=== PATIENT | male | born 1960 | race Caucasian/White ===

== ENCOUNTER → 2018-01-20 | Outpatient (CLI) | payer OTHER | LOC: M RAD 13:53 | DX: Z12.2 Encounter for screening for malignant neoplasm of respiratory organs (principal); F17.210 Nicotine dependence, cigarettes, uncomplicated | CPT/HCPCS: G0297 ==

== ENCOUNTER → 2019-04-05 | Outpatient (CLI) | payer OTHER ==
--- NOTE | 2019-04-06 05:38 | REP ---
Clinical: Lung screening. History smoking. Comparison: 01/20/2018, 05/15/2008 Technique: Axial low-dose noncontrast images from the thoracic inlet to the upper abdomen using lung screening technique. Findings: The lung perez are well-aerated. No consolidation, significant nodule or mass lesion is appreciated. Minimal stable scattered scarring unchanged from prior examinations. No pleural effusion/reaction or pneumothorax. Tracheobronchial tree is patent. Mediastinum demonstrates mild atherosclerotic changes of the coronary arteries without cardiomegaly. Impression: Lung-RADS category I. No nodule or suspicious abnormality. Management recommendations include annual low-dose CT screening. Electronically Signed by Vladislav Hong MD 04/06/2019 05:30 A
== END ==
LOC: M RAD 14:30
PROVIDERS: ATTEND Physician Assistant
DX: Z87.891 Personal history of nicotine dependence (principal); Z12.2 Encounter for screening for malignant neoplasm of respiratory organs

== ENCOUNTER → 2020-04-09 08:58 | Outpatient (RCR) | payer OTHER ==
[~2020-04-09] VITALS: Ht 168.9 cm; Wt 83.1 kg
[~2020-04-09 08:58] MED LIST: ADV500INH INH; ARNU1INH PO; B-12100020 PO; CIDA500T2 PO; CLAR10CA3 PO; FISH1000 PO; FLUT22IN INH; FLUT44IN INH; INCR1INH INH; LEVA750T7 PO; LEVO750T13 PO; LISI10TA4 PO; LOVA40TA PO; METF-877 PO; MULTCAP PO; RA A PO; VENTAER INH; VITA-113 SL; VITA500C24 PO
[2020-04-09 09:17] VITALS: BP 149/88
--- NOTE | 2020-04-09 10:02 | MEDONCPDOC ---
Medical Oncology Office Note Date of Service: Apr 09, 2020 Diagnosis/Treatment History Unknown primary cancer with CT scan 03/24/2020 at [facility] showing metastatic liver lesions, extensive mesenteric and retroperitoneal adenopathy, irregular bladder wall thickening, prostamegaly. Interval History Mr. Leobardo Woodall is a 59-year-old man who was having abdominal pains on the right lower quadrant and lower abdomen for a month for which he went to [facility] ER. He had a CT scan which showed metastatic liver lesions, small right pleural effusion and moderate left pleural effusion with left lower lobe consolidation, extensive mesenteric and retroperitoneal adenopathy, irregular bladder wall thickening, and prostamegaly. He was referred to Dr. Paniagua who performed an upper and lower endoscopy according to patient. I did not have records of this procedure as of this time but will obtain records. Mr. Leobardo Woodall states that his abdominal pains have resolved. He reports irregular bowel movements. No rectal bleeding. Appetite is good but he has been trying to lose weight and has lost 18 pounds over summer. He reports a dry cough. He is currently on inhalers. Allergies Coded Allergies: MS - No Known Drug Allergy (Verified Allergy, Unknown, 10/23/12) Home Medications Reported Medications Loratadine (Claritin) 10 Mg Capsule, 10 MG PO DAILY for allergy symptoms for 30 Days, #30 CAP 04/09/20 Diphenhydramine HCl (Allergy Medicine) 25 Mg Tablet, 25 MG PO, TAB 04/09/20 Multivitamin (Multivitamins) 1 Each Capsule, 1 CAP PO DAILY for 30 Days, #30 CAP 04/09/20 Cyanocobalamin (Vitamin B-12) (Vitamin B-12) 1,000 Mcg Tab.subl, 1 TAB SL DAILY for 30 Days, #30 TAB 04/09/20 Glucosamine/Chondr Galvan A Sod (Cidaflex Tablet) 1 Each Tablet, 1 TAB PO, TAB 04/09/20 [place]-3 Fatty Acids/Fish Oil (Fish Oil 1,000 mg Capsule) 1 Each Capsule, 1 CAP PO DAILY for 30 Days, #30 CAP 04/09/20 Ascorbic Acid (Vitamin C) 500 Mg Capsule, 1 CAP PO DAILY for 28 Days, #28 CAP 04/09/20 Fluticasone Furoate (Arnuity Ellipta) 100 Mcg Blst.w.dev, 1 PUFF PO DAILY for 30 Days, #1 EA 04/09/20 Salmeterol/Fluticasone (Advair 500-50 Diskus) 1 Each Blst.w.dev, 1 PUFF INH BID for 30 Days, #1 INHALER 04/09/20 Umeclidinium [place] (Incruse Ellipta) 62.5 Mcg Blst.w.dev, 1 PUFF INH DAILY, #1 PUFF 04/09/20 Lisinopril (Lisinopril) 10 Mg Tablet, 1 TAB PO DAILY for 30 Days, #30 TAB 04/09/20 Lovastatin (Lovastatin) 40 Mg Tablet, 1 TAB PO DAILY for 30 Days, #30 TAB with food 04/09/20 Metformin HCl (Metformin HCl) 1,000 Mg Tablet, 1000 MG PO, TAB 04/09/20 Past Medical History Past Medical History: Hypertension. Hyperlipidemia. Diabetes mellitus. COPD. Past Surgical History: Left carpal tunnel surgery. Family History: His father had mesothelioma. Social History: She is a former smoker, having smoked for 25-30 years, one and half packs per day up to year 2015. Does not drink alcohol. . Lives with a friend. Has 3 adult children. He has a sister who is his next of kin. Review of Systems General: Reports: Normal Appetite; Denies: Chills, Night Sweats, Fatigue, Malaise Constitutional: Reports: Weight Loss, Normal appetite; Denies: Chills, Fever, Malaise, Night Sweats, Weakness, Fatigue, Lethargy Eyes: Denies: Pain, Vision change, Conjunctivae inflammation, Eyelid inflammation, Redness HEENT: Denies: Head Aches, Ear Pain, Dysphagia, Sinus Congestion, Post Nasal Drip, Sore Throat, Epistaxis Skin: Denies: Rash, Lesions, Jaundice, Bruising Pulmonary: Reports: Cough; Denies: Dyspnea, Pleuritic Chest Pain Cardiovascular: Denies: Chest Pain, Palpitations, Orthopnea, Paroxysmal Noc. Dyspnea, Edema, Lt Headedness Gastrointestinal: Denies: Nausea, Vomiting, Abdominal Pain, Diarrhea, Constipation, Melena, Hematochezia Genitourinary: Denies: Dysuria, Frequency, Incontinence, Hematuria, Retention Hematologic: Denies: Bruising, Bleeding Excessively, Petecchia, Purpura, Enlarged Lymph Nodes Endocrine: Denies: Polydipsia, Polyphagia, Polyuria, Heat Intolerance, Cold Intolerance Musculoskeletal: Denies: Neck pain, Shoulder pain, Arm pain, Back pain, Hand pain, Leg pain, Foot pain, Joint pain, Muscle pain, Spasms, Gout, Joint sweling, Muscle stiffness, Midthoracic pain Neurological: Denies: Weakness, Numbness, Incoordination, Change in Speech, Confusion, Seizures Psych: Reports: Mood Normal; Denies: Anxiety, Depression, Memory Issues, Thoughts of Self Harm, Anger, Thoughts of harming Other Physical Examination General Exam: Positive: Alert, Cooperative, No Acute Distress, Oriented Times Three Eye Exam: Positive: PERRLA, Conjunctiva & lids normal, EOMI; Negative: Sclera icteric, Ptosis ENT EXAM: Positive: Atraumatic, Mucous membr. moist/pink, Pharynx Normal, Tongue Midline, Nares Patent; Negative: Pharyngeal Edema Neck Exam: Positive: Supple, Lymphadenopathy (left supraclavicular lymphadenopathy palpable.); Negative: JVD, Thyromegaly Chest Exam: Positive: Clear to auscultation, Normal air movement; Negative: Rales, Rhonchi, Wheezing Heart Exam: Positive: Rate Normal, Regular Rhythm, Normal S1, Normal S2; Negative: Gallops, Murmurs, Rubs Abdomen Exam: Positive: Normal bowel sounds, Soft; Negative: Tenderness, Hepatospenomegaly, Mass, Hernia Extremity Exam: Positive: Normal pulses; Negative: Clubbing, Cyanosis, Edema, Tenderness, Swelling Skin Exam: Positive: Nl turgor and temperature; Negative: Rash, Breakdown, Lesion, Pruritus Neuro Exam: Positive: Normal Gait, Normal Speech, Normal Tone Psych Exam: Positive: Mental status NL, Mood NL, Oriented x 3; Negative: Anxiety Ht / Wt Ht / Wt Height:5 Feet 6.50 Inches Weight: 83.100 Kg Vital Signs Vital Signs Date Time Temp Pulse Resp B/P (MAP) Pulse Ox O2 Delivery O2 Flow Rate FiO2 04/09/20 09:17 97.8 113 22 149/88 (108) 95 Room Air Laboratory Data Item Value Date Time White Blood Count 6.8 10^3/uL 04/09/20 09 Red Blood Count 4.82 10^6/uL 04/09/20 0959 Hemoglobin 14.8 g/dl 04/09/20958 Hematocrit 45.1 % 04/09/20 09 Mean Corpuscular Volume 93.6 fl 04/09/20958 Mean Corpuscular Hemoglobin 30.7 pg 04/09/20958 Mean Corpuscular Hemoglobin Concent 32.8 g/dl 04/09/20958 Red Cell Distribution Width 11.8 % 04/09/20958 Platelet Count 348 10^3/uL 04/09/20 09 Immature Granulocyte % (Auto) 0.3 % 04/09/20 09 Neutrophils (%) (Auto) 66.3 % H 04/09/20 09 Lymphocytes (%) (Auto) 16.6 % L 04/09/20 09 Monocytes (%) (Auto) 15.7 % H 04/09/20 09 Eosinophils (%) (Auto) 0.7 % 04/09/20958 Basophils (%) (Auto) 0.4 % 04/09/20 09 Neutrophils # (Auto) 4.5 10^3/uL 04/09/20 0959 Lymphocytes # (Auto) 1.1 10^3/uL L 04/09/2059 Monocytes # (Auto) 1.1 10^3/uL H 04/09/20 0959 Eosinophils # (Auto) 0.1 10^3/uL 04/09/20 0959 Basophils # (Auto) 0.0 10^3/uL 04/09/20958 Nucleated Red Blood Cells % (auto) 0.0 % 04/09/20 09 Item Value Date Time Sodium Level 137 MEQ/L 04/09/20 09 Potassium Level 3.9 MEQ/L 04/09/20 0959 Chloride Level 101 MEQ/L 04/09/2059 Carbon Dioxide Level 29 MEQ/L 04/09/20 0959 Anion Gap 7 MEQ/L L 04/09/20958 Blood Urea Nitrogen 12 MG/DL 04/09/20 09 Creatinine 0.92 MG/DL 04/09/20958 Glomerular Filtration Rate > 60.0 04/09/20958 Fasting Glucose 132 MG/DL H 04/09/20 0959 Calcium Level 9.7 MG/DL 04/09/20 0959 Total Bilirubin 0.6 MG/DL 04/09/20958 Aspartate Amino Transf (AST/SGOT) 13 U/L 9/23/20 0959 Alanine Aminotransferase (ALT/SGPT) 20 U/L 04/09/20 0959 Alkaline Phosphatase 77 U/L 04/09/20 0959 Total Protein 7.5 GM/DL 04/09/20 0959 Albumin 3.5 GM/DL 04/09/20 0959 Albumin/Globulin Ratio 0.9 04/09/20 0959 Carcinoembryonic Antigen 1.0 NG/ML 04/09/20 0959 CA 19-9 Antigen 145.8 U/ML H 04/09/20 0959 Assessment/Plan 59-year-old with unknown primary cancer with CT abdomen/pelvis 03/24/2020 showing metastatic liver lesions, intra-abdominal lymphadenopathy, bladder wall thickening and bilateral pleural effusions. Prognosis discussed with the patient. This is likely an incurable condition because of presence of metastatic disease. He needs a liver biopsy. We'll arrange for interventional radiology to do this. He apparently had an upper and lower endoscopy under Dr. Paniagua. We will obtain records. I also discussed that he likely would need to start systemic treatment mostly likely chemotherapy. Check CBC and tumor markers. We will also obtain a CT chest to assess for disease in the lungs/chest. After biopsy we'll likely order a PET CT scan. Above discussed with the patient who has agreed to the above plan. Thank you for referring Mr. Leobardo Woodall. CC TO: CC TO: Primary Care Provider: Fredo Mills MD Referring Provider: TIMBO MORIN MD Apr 09, 2020 10:02
[2020-04-09 11:05] LABS: BASO % 0.4 % (0.0-1.0); EOS # 0.1 10^3/uL (0.0-0.5); EOS % 0.7 % (0.0-3.0); HEMATOCRIT 45.1 % (42.0-52.0); HEMOGLOBIN 14.8 g/dl (13.5-17.5); LYMPH # 1.1 10^3/uL (1.5-5.0); LYMPH % 16.6 % (24.0-44.0); MEAN CORPUSCULAR HEMOGLOBIN 30.7 pg (27.0-33.0); MEAN CORPUSCULAR HGB CONC 32.8 g/dl (32.0-36.5); MEAN CORPUSCULAR VOLUME 93.6 fl (80.0-96.0); MONO # 1.1 10^3/uL (0.0-0.8); MONO % 15.7 % (0.0-5.0); NEUTROPHILS # 4.5 10^3/uL (1.5-8.5); NEUTROPHILS % 66.3 % (36.0-66.0); PLATELET COUNT, AUTOMATED 348 10^3/uL (150-450); RED BLOOD COUNT 4.82 10^6/uL (4.30-6.10); WHITE BLOOD COUNT 6.8 10^3/uL (4.0-10.0)
[2020-04-09 11:17] LABS: INR 1.05; PROTHROMBIN TIME 13.9 SECONDS (12.5-14.3)
[2020-04-09 11:18] LABS: PARTIAL THROMBOPLASTIN TIME 38.1 SECONDS (24.2-38.5)
[2020-04-09 11:21] LABS: ALBUMIN 3.5 GM/DL (3.2-5.2); ALT/SGPT 20 U/L (12-78); BILIRUBIN,TOTAL 0.6 MG/DL (0.2-1.0); BLOOD UREA NITROGEN 12 MG/DL (7-18); CALCIUM LEVEL 9.7 MG/DL (8.5-10.1); CARBON DIOXIDE LEVEL 29 MEQ/L (21-32); CHLORIDE LEVEL 101 MEQ/L (98-107); CREATININE FOR GFR 0.92 MG/DL (0.70-1.30); GLOMERULAR FILTRATION RATE > 60.0 (>56); GLUCOSE, FASTING 132 MG/DL (70-100); POTASSIUM SERUM 3.9 MEQ/L (3.5-5.1); SODIUM LEVEL 137 MEQ/L (136-145); TOTAL PROTEIN 7.5 GM/DL (6.4-8.2)
[2020-04-09 12:00] LABS: CA19-9 TUMOR MARKER,CARBOHYDRA 145.8 U/ML (<35.0)
== END | disposition home or self-care (01) ==
LOC: M ONCM 08:58
PROVIDERS: ATTEND Internal Medicine Medical Oncology
DX: C80.1 Malignant (primary) neoplasm, unspecified (principal); K76.89 Other specified diseases of liver; R59.0 Localized enlarged lymph nodes; J90 Pleural effusion, not elsewhere classified; I10 Essential (primary) hypertension; J44.9 Chronic obstructive pulmonary disease, unspecified; E11.9 Type 2 diabetes mellitus without complications; Z87.891 Personal history of nicotine dependence; Z79.899 Other long term (current) drug therapy
CPT/HCPCS: 36415; 80053; 82378; 85025; 85610; 85730; 86301; G0463

== ENCOUNTER → 2020-04-16 | Outpatient (CLI) | payer OTHER ==
[~2020-04-16] MED LIST changes: +LIDOCAINE 1% MDV 20ML VIAL As Ordered ONE; +SODIUM BICARBONATE 8.4% INJ 50MEQ 50 ML VIAL As Ordered ONE
[2020-04-16 11:00] VITALS: BP 147/85
--- NOTE | 2020-04-23 16:22 | REP ---
ULTRASOUND-GUIDED LIVER BIOPSY This procedure was performed by PEE Alcala, under the direct supervision of Dr. Richardson. The risks and benefits of the procedure were explained to the patient and an informed consent was obtained both verbally and written. Directly prior to the start of the procedure, a formal time-out was completed in the procedure room. One of the liver masses in the left lobe of the liver was localized using ultrasound guidance. The skin was prepped and draped in a sterile fashion. Approximately 15 mL of buffered Lidocaine was used as a local anesthetic. Using ultrasound guidance, a 19\20 gauge coaxial needle biopsy system was inserted and advanced into the liver mass. Six core biopsy samples were obtained and sent to the lab. The patient tolerated the procedure extremely well, and there were no immediate complications. After the appropriate amount of monitored convalescence, the patient was discharged from the department. INDRA
== END ==
LOC: M IRPRO 08:08
PROVIDERS: ATTEND Internal Medicine Medical Oncology
DX: C78.7 Secondary malignant neoplasm of liver and intrahepatic bile duct (principal)

== ENCOUNTER → 2020-04-18 | Outpatient (CLI) | payer OTHER ==
[~2020-04-18] MED LIST changes: +ISOVUE-370 76% 100ML VIAL As Ordered ONE; -LIDOCAINE 1% MDV 20ML VIAL As Ordered ONE; -SODIUM BICARBONATE 8.4% INJ 50MEQ 50 ML VIAL As Ordered ONE
--- NOTE | 2020-04-28 17:19 | REP ---
CT CHEST WITH INTRAVENOUS (IV) CONTRAST HISTORY: Pleural effusion. COMPARISON: CT study of the chest from 04/05/2019. That prior study was a screening exam. CT CONTRAST DOSE: 75 mL of intravenous Isovue-[address] FINDINGS: Preliminary deck mate views demonstrate fissural thickening, widespread nodular interstitial changes, and right and left mediastinal lymphadenopathy and mediastinal widening. Axial CT images confirm the presence of small bilateral pleural effusions. There are numerable bilateral pulmonary nodules consistent with pulmonary metastatic lesions. These range in size up to 14 mm. There is some fluid opacification in the bases, which may be atelectasis associated with the effusions. There is fairly bulky anterior mediastinal, subcarinal, paratracheal, and bilateral hilar lymphadenopathy as well. No definite axillary adenopathy is seen. There is no CT evidence of pulmonary embolus or aortic aneurysm or dissection. Multiple metastatic lesions are seen scattered about the liver. The largest of these is an inferior lesion in the left lobe measuring 4.8 cm in diameter. There is an accessory splenule in the left upper quadrant. There is upper abdominal lymphadenopathy in the celiac axis region. Retrocrural lymphadenopathy is observed. No adrenal lesion is seen. No bony destructive lesion is seen. IMPRESSION: Widespread pulmonary metastatic disease. Small bilateral pleural effusions. Fairly bulky bilateral hilar and mediastinal lymphadenopathy. Upper abdominal lymphadenopathy. Liver metastasis pattern. MTDD
== END ==
LOC: M RAD 13:34
PROVIDERS: ATTEND Internal Medicine Medical Oncology
DX: J90 Pleural effusion, not elsewhere classified (principal); C34.90 Malignant neoplasm of unspecified part of unspecified bronchus or lung; R59.0 Localized enlarged lymph nodes
CPT/HCPCS: 71260; Q9967

== ENCOUNTER 2020-04-24 10:30 | Inpatient (IN) | payer OTHER ==
[~2020-04-24] VITALS: Ht 172.7 cm; Wt 78.1 kg
[~2020-04-24 10:30] MED LIST changes: -B-12100020 PO; -FLUT44IN INH; -ISOVUE-370 76% 100ML VIAL As Ordered ONE; -LEVA750T7 PO; -LEVO750T13 PO; -VENTAER INH
[2020-04-24] MEDS ORDERED: FLUT44IN INH (11:05)
--- NOTE | 2020-04-24 11:17 | REPVR ---
PROCEDURE INFORMATION: Exam: XR Chest, 1 View Exam date and time: 04/24/2020 10:50 AM Age: 59 years old Clinical indication: Cough and dyspnea; Additional info: Dyspnea/cough TECHNIQUE: Imaging protocol: XR of the chest Views: 1 view. COMPARISON: CT Chest with contrast 04/18/2020 2:20 PM FINDINGS: Lungs: Bilateral basilar predominant opacities consistent with pneumonia, probably worsened since the prior CT chest of 04/18/2020. Pleural space: Moderate left and small right pleural effusions. No visible pneumothorax. Heart/Mediastinum: Unremarkable. No cardiomegaly. Bones/joints: Unremarkable. IMPRESSION: Persistent, likely worsened, bilateral pneumonia. Electronically signed by: Rachel Muñoz On 04/24/2020 11:17:40 AM
[2020-04-24 11:31] LABS: BASO % 0.5 % (0.0-1.0); EOS % 0.4 % (0.0-3.0); HEMATOCRIT 46.4 % (42.0-52.0); LYMPH # 0.9 10^3/uL (1.5-5.0); LYMPH % 10.5 % (24.0-44.0); MEAN CORPUSCULAR HEMOGLOBIN 29.6 pg (27.0-33.0); MEAN CORPUSCULAR HGB CONC 32.3 g/dl (32.0-36.5); MEAN CORPUSCULAR VOLUME 91.5 fl (80.0-96.0); MONO # 1.3 10^3/uL (0.0-0.8); MONO % 15.9 % (0.0-5.0); NEUTROPHILS # 5.9 10^3/uL (1.5-8.5); NEUTROPHILS % 72.1 % (36.0-66.0); PLATELET COUNT, AUTOMATED 425 10^3/uL (150-450); RED BLOOD COUNT 5.07 10^6/uL (4.30-6.10); WHITE BLOOD COUNT 8.2 10^3/uL (4.0-10.0)
[2020-04-24] MEDS ORDERED: ISOVUE-370 76% 100ML VIAL As Ordered ONE (11:47)
[2020-04-24 12:08] LABS: ALBUMIN 3.1 GM/DL (3.2-5.2); BILIRUBIN,DIRECT 0.1 MG/DL (0.0-0.2); BILIRUBIN,TOTAL 0.5 MG/DL (0.2-1.0); THYROID STIMULATING HORMONE 1.99 uIU/ML (0.358-3.740); THYROXINE (T4) 10.6 UG/DL (4.5-12.0); TOTAL PROTEIN 6.6 GM/DL (6.4-8.2)
[2020-04-24] MEDS ORDERED: B-12100020 PO (12:14)
--- NOTE | 2020-04-24 12:28 | REPVR ---
PROCEDURE INFORMATION: Exam: CT Angiography Chest With Contrast Exam date and time: 04/24/2020 11:35 AM Age: 59 years old Clinical indication: Shortness of breath; Additional info: SOB TECHNIQUE: Imaging protocol: Computed tomographic angiography of the chest with intravenous contrast. 3D rendering (Not supervised by radiologist): MIP and/or 3D reconstructed images were created by the technologist. Radiation optimization: All CT scans at this facility use at least one of these dose optimization techniques: automated exposure control; mA and/or kV adjustment per patient size (includes targeted exams where dose is matched to clinical indication); or iterative reconstruction. Contrast material: ISOVUE 370; Contrast volume: 75 ml; Contrast route: INTRAVENOUS (IV); COMPARISON: 1. CT Chest with contrast 04/18/2020 2:20 PM 2. LOW DOSE LUNG SCREENING CT 04/05/2019 2:46:28 PM FINDINGS: Pulmonary arteries: Images are motion degraded limiting assessment of small pulmonary arterial branches. No central pulmonary arterial filling defects identified. Aorta: Unremarkable. No aortic aneurysm. No aortic dissection. Lungs: Progressive bilateral patchy lung consolidation, in particular progressive, coalescent, dense consolidations in both lower lobes as well as lingula. Relatively milder upper lobe opacities elsewhere are similar to prior. Mildly progressive disease in the right middle lobe. Numerous nodular opacities versus nodules, for example in the right middle lobe measuring 12 and 10 mm. Pleural space: Progressive, moderate bilateral pleural effusions. No pneumothorax. Heart: Unremarkable. No cardiomegaly. No pericardial effusion. Lymph nodes: Mediastinal and bilateral perihilar lymphadenopathy is again demonstrated. For example enlarged prevascular lymph nodes, the largest measuring 2.2 x 1.8 cm. Mild retrocrural lymphadenopathy. There is upper abdominal celiac axis she lymphadenopathy, as before. Shotty left axillary lymphadenopathy. Liver: Numerous hypodense liver lesions are again demonstrated, the largest in the right hepatic lobe measures larger than 4 cm. Bones/joints: No acute fracture seen. No discrete suspicious lytic or blastic lesions identified bone. Soft tissues: Unremarkable. IMPRESSION: 1. No evidence of pulmonary emboli. 2. Progressive pneumonia, in particular dense bilateral lower lobe consolidations. 3. Progressive bilateral pleural effusions. Electronically signed by: Rachel Muñoz On 04/24/2020 12:28:07 PM
[2020-04-24] MEDS ORDERED: AZITHROMYCIN INJ 500 MG, VIAL MATE ADAPTER 1 EACH in D5W 250 ML IV ONE (12:45)
[2020-04-24] MEDS ORDERED: cefTRIAXone SOD 1 GM in D5W MINI-BAG PLUS 50 ML IV ONE (12:45)
[2020-04-24] MEDS ORDERED: LEVALBUTEROL 1.25 MG/0.5 ML CONCENTRATE NEB INH PRN (14:15)
[2020-04-24] MEDS ORDERED: GLUCAGON INJ 1MG VIAL SC PRN (14:15)
[2020-04-24] MEDS ORDERED: GLUCOSE 4GM CHEW TABLET PO PRN (14:15)
[2020-04-24] MEDS ORDERED: DEXTROSE 50% 50 ML SYRINGE IV PRN (14:15)
[2020-04-24] MEDS ORDERED: ACETAMINOPHEN TAB 650MG DOSE (2X325MG) PO PRN (14:15)
[2020-04-24] MEDS: ADVAIR HFA 230/21MCG INHALER INH SCH ×2 (14:32→20:00)
[2020-04-24] MEDS: lisinopriL 10 MG TAB PO SCH (15:33)
[2020-04-24] MEDS: MULTIVITAMINS/MINERALS THERAP 1 TAB PO SCH (15:33)
[2020-04-24 16:00] VITALS: BP 149/91
--- NOTE | 2020-04-24 16:56 | HPEPDOC ---
[facility] Medical History & Physical Date of Admission Apr 24, 2020 Date of Service: Apr 24, 2020 Attending Physician: SHEA ANNA MD History and Physical CHIEF COMPLAINT: Shortness of breath. HISTORY OF PRESENT ILLNESS: Mr. Woodall is a 59 yo M with a PMHx of COPD, HTN, HLD, and T2DM who was recently diagnosed with cancer of unknown origin that has spread to the liver, lymph nodes, and possibly lung, who presented to the ED complaining of shortness of breath that has been worsening over the past 3 days. He says he will occasionally cough and produce clear/white sputum. The pt states that he tried taking his inhalers at home but it did not improve his symptoms. Pt states that he has not had much of an appetite over the past 3 days. He says that he has been drinking gatorade and water at home pretty consistently though. He denies fever, chills, abdominal pain, diarrhea, or constipation. PAST MEDICAL HISTORY: 1. HTN 2. HLD 3. COPD 4. T2DM non insulin dependent 5. Metastatic cancer of uncertain origin in liver, intra-abdominal lymph nodes, and possibly lungs. PAST SURGICAL HISTORY: 1. L carpal tunnel surgery 2. 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 REVIEW OF SYSTEMS: CONSTITUTIONAL: Denies fever, chills, diarrhea, vomiting. HEENT: Denies headache, sore throat, congestion, rhinorrhea, ear pain. CARDIOVASCULAR: Denies palpitations, chest pain. RESPIRATORY: Admits to shortness of breath on exertion. Denies significant cough. GASTROINTESTINAL: Admits to nausea. Denies vomiting, diarrhea. GENITOURINARY: Denies dysuria, hematuria. SKIN: Denies rashes, lesions. MUSCULOSKELETAL: Denies joint pain, muscle aches. NEUROLOGICAL: Denies vision changes, loss of balance, sensory deficits, weakness. HOME MEDICATIONS: Please see below. PHYSICAL EXAMINATION: VITAL SIGNS: Temperature 99.1, pulse 118, respiratory rate 18, blood pressure 156/70, pulse oximetry 94% on 1L nasal cannula. GENERAL APPEARANCE: Pt appears lying in bed comfortably in no acute distress. HEENT: NC, AT, no scleral icterus, no pharyngeal erythema. Soft, mobile, non tender mass L supraclavicular area. CARDIOVASCULAR: RRR, tachycardic, no murmurs, rubs, or gallops. LUNGS: CTAB, decreased breath sounds BL L>R, audible wheezing after expiration. ABDOMEN: Soft, NT, distended, tympanic, bowel sounds present in all quadrants. EXTREMITIES: No swelling or edema. NEUROLOGICAL: AAOx3, EOMI, PERRLA, CN III-XII grossly intact, no focal deficits. PSYCHIATRIC: Normal mood and affect. LABORATORY DATA: See below. IMAGING: -CXR 04/24/2020: Impression "Persistent, likely worsened, bilateral pneumonia." -CTA 04/24/2020: Impression "1. No evidence of pulmonary emboli. 2. Progressive pneumonia, in particular dense bilateral lower lobe consolidations. 3. Progressive bilateral pleural effusions." MICROBIOLOGY: Please see below. ASSESSMENT: Mr. Woodall is a 59 yo M with a PMHx of HTN, HLD, non insulin dependent T2DM, COPD, and recently diagnosed metastatic cancer of undetermined origin, that presented to the ED complaining of worsening shortness of breath of 3 days duration, was found to have bilateral infiltrates on CXR and pleural effusion on imaging, concerning for PNA vs malignant pleural effusion vs COPD exacerbation. PLAN: #. Shortness of breath likely 2/2 to BL interstitial PNA vs pleural effusion vs COPD exacerbation - Recent negative COVID test on 03/31/2020, will retest on this admission. - Sputum culture, legionella antigen, and procalcitonin ordered. - Pt started on vancomycin and cefepime. - Pt is on 1L supplemental O2. - Spoke with Dr. Melgar regarding CT findings, does not believe there are any loculations and effusion is mild to moderate so there is not an indication to drain yet, appreciate his recommendations. - Will get repeat CT after treating the PNA to reassess. #. COPD - Xopenex neb PRN - Flovent daily PRN - Advair BID. - Oxygen titration 88-92% #. Tachycardia - Pt given 500ml bolus of NS. - Pt started on telemetry. #. T2DM - Hold pt's home metformin. - Started on sliding scale insulin. - Hypoglycemic protocol. #. HTN - Continue home lisinopril. #. HLD - Continue home simvastatin. #. Metastatic CA of undetermined origin - Pt under the care of Dr. Lopez, will appreciate her recommendations. DVT Prophylaxis: Lovenox Vital Signs Vital Signs Date Time Temp Pulse Resp B/P (MAP) Pulse Ox O2 Delivery O2 Flow Rate FiO2 04/24/20 13:45 99.1 118 18 156/70 (98) 94 1.0 04/24/20 10:48 Nasal Cannula Laboratory Data Labs 24H Laboratory Tests 2 04/24/20 11:08: POC Glucose (Misc Panel) 130H, POC Sodium (Misc Panel) 135L, POC Potassium (Misc Panel) 4.7, POC Chloride (Misc Panel) 98, POC Total CO2 (Misc Panel) 24.0, POC Blood Urea Nitrogen (Misc Panel 9, POC Ionized Calcium (Misc Panel) 4.6, POC Creatinine (Misc Panel) 0.7, POC Hematocrit (Misc Panel) 46.0 04/24/20 11:10: POC Troponin I (Misc) 0.00 04/24/20 11:11: Immature Granulocyte % (Auto) 0.6, Neutrophils (%) (Auto) 72.1H, Lymphocytes (%) (Auto) 10.5L, Monocytes (%) (Auto) 15.9H, Eosinophils (%) (Auto) 0.4, Basophils (%) (Auto) 0.5, Neutrophils # (Auto) 5.9, Lymphocytes # (Auto) 0.9L, Monocytes # (Auto) 1.3H, Eosinophils # (Auto) 0.0, Basophils # (Auto) 0.0, Nucleated Red Blood Cells % (auto) 0.0, Total Bilirubin 0.5, Direct Bilirubin 0.1, Aspartate Amino Transf (AST/SGOT) 21, Alanine Aminotransferase (ALT/SGPT) 18, Alkaline Phosphatase 73, VD-Wsh-W-Type Natriuretic Peptide 81, Total Protein 6.6, Albumin 3.1L, Albumin/Globulin Ratio 0.9, Thyroid Stimulating Hormone (TSH) 1.990, Thyroxine (T4) 10.6 04/24/20 12:11: Lactic Acid Level 1.8 CBC/BMP Laboratory Tests 04/24/20 11:11 Microbiology Microbiology 04/24/20 Blood Culture, Received Pending 04/24/20 Blood Culture, Received Pending Home Medications Scheduled Ascorbic Acid (Vitamin C) 500 Mg Capsule, 500 CAP PO DAILY Cyanocobalamin (Vitamin B-12) (B-12) 1,000 Mcg Tablet, 1,000 MCG PO DAILY Glucosamine/Chondr Galvan A Sod (Cidaflex Tablet) 1 Each Tablet, 1 TAB PO DAILY Levofloxacin (Levofloxacin) 750 Mg Tablet, 750 MG PO DAILY Lisinopril (Lisinopril) 10 Mg Tablet, 10 MG PO DAILY Loratadine (Claritin) 10 Mg Capsule, 10 MG PO DAILY Lovastatin (Lovastatin) 40 Mg Tablet, 40 MG PO DAILY Metformin HCl (Metformin HCl) 1,000 Mg Tablet, 1,000 MG PO QHS Multivitamin (Multivitamins) 1 Each Capsule, 1 CAP PO DAILY [place]-3 Fatty Acids/Fish Oil (Fish Oil 1,000 mg Capsule) 1 Each Capsule, 1,000 MG PO DAILY Salmeterol/Fluticasone (Advair 500-50 Diskus) 1 Each Blst.w.dev, 1 PUFF INH BID Umeclidinium [place] (Incruse Ellipta) 62.5 Mcg Blst.w.dev, 1 PUFF INH DAILY Scheduled PRN Albuterol Sulfate (Ventolin Hfa) 18 Gm Hfa.aer.ad, 2 PUFF INH QID PRN for SOB/WHEEZING Allergies Coded Allergies: No Known Drug Allergies (Verified Allergy, Unknown, 04/24/20) GME ATTESTATION GME ATTESTATION My faculty preceptor for this patient encounter was physically present during the encounter and was fully available. All aspects of the patient interview, examination, medical decision making process, and medical care plan development were reviewed and approved by the faculty preceptor. The faculty preceptor is aware and concurs with the plan as stated in the body of this note and will attest to such by his/her cosignature. ATTENDING NOTE Patient was seen and examined by me personally with the residents and the students. Agree with the above assessment and plan. ALEKSANDR HERNANDEZ OMS-3 Apr 24, 2020 15:27 DEVANG ANTUNEZ MD Apr 24, 2020 16:56 SHEA ANNA MD May 02, 2020 13:58
[2020-04-24] MEDS ORDERED: NS 500 ML IV ONE (17:00)
[2020-04-24] MEDS ORDERED: VANCOMYCIN HCL 1,000 MG, VIAL MATE ADAPTER 1 EACH in D5W 250 ML IV SCH (17:00)
[2020-04-24] MEDS: CEFEPIME HCL 2 GM in D5W MINI-BAG PLUS 50 ML IV SCH (17:20)
[2020-04-24] MEDS: HumaLOG INSULIN (NovoLOG) PER UNIT SC SCH ×2 (17:21→21:00)
[2020-04-24 18:00] VITALS: BP 145/69
[2020-04-24] MEDS ORDERED: VANCOMYCIN HCL 750 MG, VIAL MATE ADAPTER 1 EACH in D5W 250 ML IV ONE (18:00)
[2020-04-24] MEDS: DOCUSATE SODIUM 100 MG CAP PO SCH (20:24)
[2020-04-24 22:00] VITALS: BP 138/67
[2020-04-25] MEDS: CEFEPIME HCL 2 GM in D5W MINI-BAG PLUS 50 ML IV SCH ×2 (04:35→16:32)
[2020-04-25 05:58] LABS: HEMATOCRIT 44.2 % (42.0-52.0); HEMOGLOBIN 14.2 g/dl (13.5-17.5); MEAN CORPUSCULAR HEMOGLOBIN 29.8 pg (27.0-33.0); MEAN CORPUSCULAR HGB CONC 32.1 g/dl (32.0-36.5); MEAN CORPUSCULAR VOLUME 92.9 fl (80.0-96.0); PLATELET COUNT, AUTOMATED 331 10^3/uL (150-450); RED BLOOD COUNT 4.76 10^6/uL (4.30-6.10)
[2020-04-25 06:00] VITALS: BP 130/74
[2020-04-25 06:09] LABS: ALBUMIN 2.7 GM/DL (3.2-5.2); ALT/SGPT 16 U/L (12-78); BILIRUBIN,TOTAL 0.4 MG/DL (0.2-1.0); BLOOD UREA NITROGEN 11 MG/DL (7-18); CALCIUM LEVEL 8.6 MG/DL (8.5-10.1); CARBON DIOXIDE LEVEL 25 MEQ/L (21-32); CHLORIDE LEVEL 102 MEQ/L (98-107); CREATININE FOR GFR 0.74 MG/DL (0.70-1.30); GLOMERULAR FILTRATION RATE > 60.0 (>56); GLUCOSE, FASTING 124 MG/DL (70-100); POTASSIUM SERUM 4.9 MEQ/L (3.5-5.1); SODIUM LEVEL 136 MEQ/L (136-145)
--- NOTE | 2020-04-25 07:17 | ECGEPIP ---
[facility] - ED Test Date: 2020-04-24 Pat Name: TAHIRA BLEVINS Department: Room: - Gender: Male Heel Packer: DESTINI : 1960 Requested By: Myrtle Rivers Order Number: [id number] Reading MD: Zi Madrid Measurements Intervals [place] Rate: 124 P: 64 [place]: 127 QRS: 15 QRSD: 96 T: 58 QT: 304 QTc: 437 Interpretive Statements SINUS TACHYCARDIA POSSIBLE LEFT ATRIAL ENLARGEMENT POOR R WAVE PROGRESSION NO PRIORS FOR COMPARISON Electronically Signed on 04-25-2020 7:17:29 EDT by Zi Madrid
[2020-04-25] MEDS: ADVAIR HFA 230/21MCG INHALER INH SCH ×2 (07:53→19:57)
[2020-04-25] MEDS: ENOXAPARIN 40MG/0.4ML SYRINGE (J1650 PER 10MG) SC SCH (07:55)
[2020-04-25] MEDS: HumaLOG INSULIN (NovoLOG) PER UNIT SC SCH ×4 (07:56→21:00)
[2020-04-25] MEDS: DOCUSATE SODIUM 100 MG CAP PO SCH ×2 (07:56→21:00)
[2020-04-25] MEDS: lisinopriL 10 MG TAB PO SCH (07:56)
[2020-04-25] MEDS: SIMVASTATIN 20 MG TAB PO SCH (07:57)
[2020-04-25] MEDS: MULTIVITAMINS/MINERALS THERAP 1 TAB PO SCH (07:57)
[2020-04-25] MEDS ORDERED: FLUTICASONE HFA 44 MCG 10.6GM INHALER (FLOVENT) INH PRN (08:00)
[2020-04-25] MEDS ORDERED: IPRATROPIUM 0.02% SOLN 0.5MG 2.5ML NEB INH PRN (13:15)
--- NOTE | 2020-04-25 13:42 | IPNPDOC ---
Text Note Date of Service The patient was seen on 04/25/20. NOTE HPI: Mr. Woodall is a 59 yo M with a PMHx of COPD, HTN, and T2DM, who was rece ntly diagnosed with metastatic cancer of undetermined origin, that presented to the ED complaining of worsening shortness of breath. SUBJECTIVE: No acute events overnight. Pt says he is feeling less short of breath than yesterday. He states that he feels short of breath when he is up and moving around. He is still on 1L NC. Pt denies fever, chills, nausea, vomiting, diarrhea, or constipation. OBJECTIVE: VITAL SIGNS: please see below. GENERAL: Pt was seen sitting in bedside chair in no acute distress. HEENT: NC, AT, no scleral icterus, no pharyngeal erythema. Soft, mobile, non tender mass in L supraclavicular area. NECK: no JVD or lymphadenopathy appreciated. CV: tachycardic, regular rhythm, no murmurs, rubs, gallops. RESP: lung sounds diminished BL L>R, decreased tactile fremitus BL L>R, no rales, rhonchi, or wheezes. ABDOMEN: soft, NT, mildly distended, bowel sounds present in all quadrants. EXTREMITIES: no swelling or edema. NEURO: AAOx3, CN III-XII grossly intact. PSYCH: Normal mood and affect. LABORATORY: please see below. MICROBIOLOGY: -Blood cultures pending. -Sputum culture gram stain showed few gram positive cocci in pairs. Culture still pending. IMAGING: -CXR 04/24/2020: Impression "Persistent, likely worsened, bilateral pneumonia." -CTA 04/24/2020: Impression "1. No evidence of pulmonary emboli. 2. Progressive pneumonia, in particular dense bilateral lower lobe consolidations. 3. Progressive bilateral pleural effusions." ASSESSMENT/PLAN: Mr. Woodall is a 59 yo M with a PMHx of HTN, HLD, non insulin dependent T2DM, COPD, and recently diagnosed metastatic cancer of undetermined origin, that presented to the ED complaining of worsening shortness of breath of 3 days duration, was found to have bilateral infiltrates on CXR and pleural effusion on imaging, concerning for PNA vs malignant pleural effusion vs COPD exacerbation. #. Shortness of breath likely 2/2 to BL interstitial PNA vs pleural effusion vs COPD exacerbation -COVID negative -Sputum culture, legionella antigen, and procalcitonin pending. -Pt is receiving cefepime -Pt is on 1L supplemental O2 -Will get repeat CT after treating the PNA to reassess #. COPD -Discontinued Xopenex neb due to tachycardia -Flovent daily PRN -Advair BID -Started on ipratropium -O2 titration 88-92% #. Tachycardia -No events on telemetry -Discontinued Xopenex in the setting of tachycardia -Ipratropium neb started today #. T2DM -Holding pt's home metformin -Started on sliding scale insulin -Hypoglycemic protocol -Consistent carbohydrate diet #. HTN -Continue home lisinopril #. HLD -Continue home simvastatin #. Metastatic CA of undetermined origin -Pt under the care of Dr. Lopez, hospitalist service appreciates her recommendations; established with Dr. Lopez on 04/09 -Apr 16 liver biopsy pathology showed metastatic carcinoma with unknown primary; Ddx metastatic adenocarcinoma vs intrahepatic cholangiocarcinoma DVT Prophylaxis: Lovenox Disposition: Pending improved respiratory status; Heme/Onc followup upon discharge VS,Rosenda, I+O VS, Rosenda, I+O Laboratory Tests 04/25/20 05:28 Vital Signs Date Time Temp Pulse Resp B/P (MAP) Pulse Ox O2 Delivery O2 Flow Rate FiO2 04/25/20 09:00 1.0 04/25/20 07:56 128/72 04/25/20 06:00 99.1 112 18 93 Nasal Cannula I&O- Last 24 Hours up to 6 AM 04/25/20 06:00 Intake Total 1325 ml Output Total 400 ml Balance 925 ml GME ATTESTATION GME ATTESTATION My faculty preceptor for this patient encounter was physically present during the encounter and was fully available. All aspects of the patient interview, examination, medical decision making process, and medical care plan development were reviewed and approved by the faculty preceptor. The faculty preceptor is aware and concurs with the plan as stated in the body of this note and will attest to such by his/her cosignature. ATTENDING NOTE Patient was seen and examined by me personally with the residents and the stude nts. Agree with the above assessment and plan. ALEKSANDR HERNANDEZ OMS-3 Apr 25, 2020 13:42 SHEA ANNA MD May 02, 2020 13:59
[2020-04-25 14:00] VITALS: BP 137/75
[2020-04-25 22:00] VITALS: BP 130/68
[2020-04-26] MEDS: CEFEPIME HCL 2 GM in D5W MINI-BAG PLUS 50 ML IV SCH (04:08)
[2020-04-26 05:43] LABS: HEMATOCRIT 43.9 % (42.0-52.0); HEMOGLOBIN 14.4 g/dl (13.5-17.5); MEAN CORPUSCULAR HEMOGLOBIN 30.1 pg (27.0-33.0); MEAN CORPUSCULAR HGB CONC 32.8 g/dl (32.0-36.5); MEAN CORPUSCULAR VOLUME 91.6 fl (80.0-96.0); PLATELET COUNT, AUTOMATED 423 10^3/uL (150-450); RED BLOOD COUNT 4.79 10^6/uL (4.30-6.10); WHITE BLOOD COUNT 8.6 10^3/uL (4.0-10.0)
[2020-04-26 06:00] VITALS: BP 128/72
[2020-04-26] MEDS ORDERED: LevoFLOXacin 750 MG TABLET PO SCH (06:00)
[2020-04-26 06:08] LABS: ALBUMIN 2.8 GM/DL (3.2-5.2); ALT/SGPT 17 U/L (12-78); BILIRUBIN,TOTAL 0.6 MG/DL (0.2-1.0); BLOOD UREA NITROGEN 15 MG/DL (7-18); CALCIUM LEVEL 8.9 MG/DL (8.5-10.1); CARBON DIOXIDE LEVEL 28 MEQ/L (21-32); CHLORIDE LEVEL 100 MEQ/L (98-107); CREATININE FOR GFR 0.81 MG/DL (0.70-1.30); GLOMERULAR FILTRATION RATE > 60.0 (>56); GLUCOSE, FASTING 135 MG/DL (70-100); POTASSIUM SERUM 4.9 MEQ/L (3.5-5.1); SODIUM LEVEL 132 MEQ/L (136-145); TOTAL PROTEIN 6.1 GM/DL (6.4-8.2)
[2020-04-26] MEDS: ADVAIR HFA 230/21MCG INHALER INH SCH (07:51)
[2020-04-26] MEDS: DOCUSATE SODIUM 100 MG CAP PO SCH (08:09)
[2020-04-26] MEDS: HumaLOG INSULIN (NovoLOG) PER UNIT SC SCH ×2 (08:09→12:13)
[2020-04-26] MEDS: SIMVASTATIN 20 MG TAB PO SCH (08:10)
[2020-04-26] MEDS: ENOXAPARIN 40MG/0.4ML SYRINGE (J1650 PER 10MG) SC SCH (08:10)
[2020-04-26] MEDS: MULTIVITAMINS/MINERALS THERAP 1 TAB PO SCH (08:10)
[2020-04-26 08:12] VITALS: BP 124/74
[2020-04-26] MEDS: lisinopriL 10 MG TAB PO SCH (08:12)
[2020-04-26] MEDS ORDERED: LEVA750T7 PO (10:45)
--- NOTE | 2020-04-26 11:24 | CR.PDOC ---
General Date of Consultation: Apr 26, 2020 Referring Provider: RUDOLPH CHAVARRIA MD Attending Physician: RUDOLPH CHAVARRIA MD Consultation REASON FOR CONSULTATION/CHIEF COMPLAINT: Metastatic unknown primary cancer. HISTORY OF PRESENT ILLNESS: Mr. Woodall is a 59-year-old man admitted for pneumonia. Started on cefepime and vancomycin on admission and now now on levofloxacin. He reports minimal improvement in shortness of breath and cough since admission. Mr Woodall was seen by me for initial consult visit 04/09/2020 for metastatic liver lesions found on CT scan 03/24/2020 at [facility], when he came in to [facility] ER for abdominal pains on right lower quadrant and lower abdomen. Since then he has had further workup with a liver biopsy showing adenocarcinoma with IHC staining results considered nonspecific, possibly intrahepatic cholangiocarcinoma versus metastatic adenocarcinoma. ALLERGIES: Please see below. HOME MEDICATIONS: Please see below. Past Medical History: Hypertension. Hyperlipidemia. Diabetes mellitus. COPD. Past Surgical History: Left carpal tunnel surgery. Family History: His father had mesothelioma. Social History: She is a former smoker, having smoked for 25-30 years, one and half packs per day up to year 2016. Does not drink alcohol. . Lives with a friend. Has 3 adult children. He has a sister who is his next of kin. Friend and sister hold healthcare proxy. REVIEW OF SYSTEMS: General: Reports: Normal Appetite; Fatigue, Malaise Denies: Chills, Night Sweats. Constitutional: Reports: Weight Loss, Normal appetite; Malaise, Night Sweats, Weakness, Fatigue, Lethargy Denies: Chills, Fever. Eyes: Denies: Pain, Vision change, Conjunctivae inflammation, Eyelid inflammation, Redness HEENT: Denies: Head Aches, Ear Pain, Dysphagia, Sinus Congestion, Post Nasal Drip, Sore Throat, Epistaxis Skin: Denies: Rash, Lesions, Jaundice, Bruising Pulmonary: Reports: Cough; Dyspnea. Denies: Pleuritic Chest Pain Cardiovascular: Denies: Chest Pain, Palpitations, Orthopnea, Paroxysmal Noc. Dyspnea, Edema, Lt Headedness Gastrointestinal: Denies: Nausea, Vomiting, Abdominal Pain, Diarrhea, Constipation, Melena, Hematochezia Genitourinary: Denies: Dysuria, Frequency, Incontinence, Hematuria, Retention Hematologic: Denies: Bruising, Bleeding Excessively, Petecchia, Purpura, Enlarged Lymph Nodes Endocrine: Denies: Polydipsia, Polyphagia, Polyuria, Heat Intolerance, Cold Intolerance Musculoskeletal: Reports: chronic low back pain Denies: Neck pain, Shoulder pain, Arm pain, Hand pain, Leg pain, Foot pain, Joint pain, Muscle pain, Spasms, Gout, Joint sweling, Muscle stiffness, Midthoracic pain Neurological: Reports: weakness. Denies: Numbness, Incoordination, Change in Speech, Confusion, Seizures Psych: Reports: Mood Normal; Denies: Anxiety, Depression, Memory Issues, Thoughts of Self Harm, Anger, Thoughts of harming Other PHYSICAL EXAMINATION: VITAL SIGNS: Please see below. GENERAL APPEARANCE: Seated on chair. Short of breath on speaking. Communicative. HEENT: Pinkish conjunctiva, anicteric, atraumatic, moist oral mucosa RESPIRATORY: Fair entry. Coarse rales at the bases. Occasional rhonchi. No wh eezing. CARDIOVASCULAR: Tachycardic. S1 S2 regular. No murmur. No gallop. ABDOMEN: Soft, nontender, no hepatosplenomegaly, no palpable masses, positive bowel sounds. EXTREMITIES: No calf swelling, no calf tenderness, no pedal edema. No cyanosis. NEUROLOGICAL: Alert. Oriented 3, moves all extremities spontaneously. PSYCHIATRIC: No anxiety. LABORATORY DATA: Please see below. ASSESSMENT/PLAN: Metastatic unknown primary adenocarcinoma. 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 Workup to date: CT abdomen/pelvis 03/24/2020 ([facility]) showing metastatic liver lesions, intra-abdominal lymphadenopathy, bladder wall thickening and bilateral pleural effusions. Colonoscopy 04/03/[address] Boswell at [facility] showed sigmoid polyp, tubulovillous adenoma on pathology report. Upper endoscopy 04/03/[address] Boswell at [facility] showed chronic esophagitis and large hiatal hernia with antrum biopsy and fundus biopsy showing no pathologic changes. Liver biopsy 04/16/2020 showing adenocarcinoma with nonspecific IHC staining results. Differential includes cholangiocarcinoma and metastatic adenocarcinoma, unknown primary. CT chest 04/18/[address] Cunningham showed widespread pulmonary metastatic disease, small bilateral pleural effusions, fairly bulky bilateral hilar and mediastinal lymphadenopathy, upper mid abdominal lymphadenopathy and liver metastases. Currently admitted for pneumonia. CT chest angiography 04/24/2010 showed progressive pneumonia with dense bilateral lower lobe consolidations, progressive bilateral pleural effusion. Pathology report and imaging studies discussed with the patient. Testing for molecular cancer supervisor twisting department assay to be considered as an outpatient. He has an unknown primary adenocarcinoma which is an incurable condition. I briefly discussed systemic chemotherapy for unknown primary cancer and metastatic cholangiocarcinoma. This can be started as an outpatient once patient is discharged and symptoms have improved from pneumonia. Also briefly discussed with Mr. Woodall the option of a hospice referral should patient's symptoms fail to improve with treatment for pneumonia. The patient was initially treated with cefepime. Now on levofloxacin. Continue antibiotics. Also on bronchodilator and steroid inhalers. Continue supportive care. Will arrange follow-up appointment with me once patient is discharged. Thank you for requesting a consult on Mr. Leobardo Woodall. Vital Signs/I&O Vital Signs Date Time Temp Pulse Resp B/P (MAP) Pulse Ox O2 Delivery O2 Flow Rate FiO2 04/26/20 08:12 124/74 04/26/20 06:00 98.0 118 18 91 Nasal Cannula 1.0 I&O- Last 24 Hours up to 6 AM 04/26/20 06:00 Intake Total 1430 ml Output Total 800 ml Balance 630 ml Laboratory Data Labs 24H Laboratory Tests 2 04/25/20 11:47: Bedside Glucose (Misc Panel) 105 04/25/20 16:30: Bedside Glucose (Misc Panel) 116H 04/25/20 20:25: Bedside Glucose (Misc Panel) 140H 04/26/20 05:19: Nucleated Red Blood Cells % (auto) 0.0, Anion Gap 4L, Glomerular Filtration Rate > 60.0, Calcium Level 8.9, Total Bilirubin 0.6, Aspartate Amino Transf (AST/SGOT) 20, Alanine Aminotransferase (ALT/SGPT) 17, Alkaline Phosphatase 66, Total Protein 6.1L, Albumin 2.8L, Albumin/Globulin Ratio 0.8 CBC/BMP Laboratory Tests 04/26/20 05:19 Microbiology Microbiology 04/24/20 Respiratory Virus Panel (PCR) (SANJAY) - Final, Complete 04/24/20 Blood Culture - Preliminary, Resulted No growth after 24 hours . All specim... 04/24/20 Blood Culture - Preliminary, Resulted No growth after 24 hours . All specim... 04/24/20 Gram Stain - Final, Resulted 04/24/20 Sputum Culture, Resulted Pending Allergies Coded Allergies: No Known Drug Allergies (Verified Allergy, Unknown, 04/24/20) Home Medications Scheduled Ascorbic Acid (Vitamin C) 500 Mg Capsule, 500 CAP PO DAILY, (Reported) Cyanocobalamin (Vitamin B-12) (B-12) 1,000 Mcg Tablet, 1,000 MCG PO DAILY, (Reported) Lisinopril (Lisinopril) 10 Mg Tablet, 10 MG PO DAILY, (Reported) Loratadine (Claritin) 10 Mg Capsule, 10 MG PO DAILY for allergy symptoms for 30 Days, #30 (Reported) Lovastatin (Lovastatin) 40 Mg Tablet, 40 MG PO DAILY, (Reported) with food Metformin HCl (Metformin HCl) 1,000 Mg Tablet, 1,000 MG PO QHS, (Reported) Multivitamin (Multivitamins) 1 Each Capsule, 1 CAP PO DAILY, (Reported) [place]-3 Fatty Acids/Fish Oil (Fish Oil 1,000 mg Capsule) 1 Each Capsule, 1,000 MG PO DAILY, (Reported) Salmeterol/Fluticasone (Advair 500-50 Diskus) 1 Each Blst.w.dev, 1 PUFF INH BID, (Reported) Umeclidinium [place] (Incruse Ellipta) 62.5 Mcg Blst.w.dev, 1 PUFF INH DAILY, (Reported) Scheduled PRN Fluticasone Propionate (Flovent Hfa) 44 Mcg/Act Aer.w.adap, 2 PUFF INH PRN PRN for SHORTNESS OF BREATH for 30 Days, #10.6 (Reported) Miscellaneous Medications Glucosamine/Chondr Galvan A Sod (Cidaflex Tablet) 1 Each Tablet, 1 TAB PO, (Reported) TIMBO MORIN MD Apr 26, 2020 11:24
--- NOTE | 2020-04-26 11:45 | DS.PDOC ---
Discharge Summary General Date of Admission Apr 24, 2020 at 13:48 Date of Discharge April 26, 2020 Attending Physician: ABIGAIL SHAW MD Specialist/Consultants Involve: TIM[facility] MORIN [facility], [facility] Dis[facility] Summary PROCEDURES PERFORMED DURING STAY: [None] ADMITTING DIAGNOSES: 1. Bilateral interstitial pneumonia 2. Bilateral pleural effusions DISCHARGE DIAGNOSES: 1. Bilateral interstitial pneumonia 2. Bilateral pleural effusions COMPLICATIONS/CHIEF COMPLAINT: Metastatic Cancer To Liver Pneumonia HISTORY OF PRESENT ILLNESS: Mr. Woodall is a 59 yo M with a PMHx of COPD, HTN, HLD, and T2DM who was recently diagnosed with cancer of unknown origin that has spread to the liver, lymph nodes, and possibly lung, who presented to the ED complaining of shortness of breath that has been worsening over the past 3 days. He says he will occasionally cough and produce clear/white sputum. The pt states that he tried taking his inhalers at home but it did not improve his symptoms. Pt states that he has not had much of an appetite over the past 3 days. He says that he has been drinking Gatorade and water at home pretty consistently though. He denies fever, chills, abdominal pain, diarrhea, or constipation. HOSPITAL COURSE: The patient was admitted with presumed diagnosis of progressive bilateral interstitial pneumonia and bilateral pleural effusions. Cardiothoracic surgery was called and it was determined that since the effusions did not appear to be loculated the patient would not need chest tube drainage at this time. He was started on broad spectrum antibiotics, Vancomycin and Cefepime. A MRSA screen was found to be negative so Vancomycin was stopped. On hospital day #3, he was transitioned to oral Levaquin. He was noted to be persistently tachycardic throughout this hospitalization and required 1L of oxygen to maintain saturations >88%. He was seen by medical oncology, who recommended outpatient follow up. He was subsequently cleared by PT and was discharged home with home O2. His Procalcitonin has remained relatively low at 0.25. Patient has been advised to complete his Levaquin as an outpatient and follow up with Oncology within the next 7 days. There is a high likelihood that these findings are secondary to lymphogenous spread of his malignancy. Patient has been advised about the importance of follow up with Oncology DISCHARGE MEDICATIONS: Please see below. ALLERGIES: Please see below. PHYSICAL EXAMINATION ON DISCHARGE: VITAL SIGNS: Please see below. GENERAL APPEARANCE: Pt appears lying in bed comfortably in no acute distress. HEENT: NC, AT, no scleral icterus, no pharyngeal erythema. Soft, mobile, non tender mass L supraclavicular area. CARDIOVASCULAR: RRR, tachycardic, no murmurs, rubs, or gallops. LUNGS: Decreased tactile fremitus up to middle lobes bilaterally with otherwise no wheezing, rales or rhonchi. Speaking in full sentences. No extra work of breathing noted. ABDOMEN: Soft, NT, distended, tympanic, bowel sounds present in all quadrants. EXTREMITIES: No swelling or edema. NEUROLOGICAL: AAOx3, EOMI, PERRLA, CN III-XII grossly intact, no focal deficits. PSYCHIATRIC: Normal mood and affect. LABORATORY DATA: Please see below. IMAGING: CXR: FINDINGS: Lungs: Bilateral basilar predominant opacities consistent with pneumonia, probably worsened since the prior CT chest of 04/18/2020. Pleural space: Moderate left and small right pleural effusions. No visible pneumothorax. Heart/Mediastinum: Unremarkable. No cardiomegaly. Bones/joints: Unremarkable. IMPRESSION: Persistent, likely worsened, bilateral pneumonia. CT ANGIO: FINDINGS: Pulmonary arteries: Images are motion degraded limiting assessment of small pulmonary arterial branches. No central pulmonary arterial filling defects identified. Aorta: Unremarkable. No aortic aneurysm. No aortic dissection. Lungs: Progressive bilateral patchy lung consolidation, in particular progressive, coalescent, dense consolidations in both lower lobes as well as lingula. Relatively milder upper lobe opacities elsewhere are similar to prior. Mildly progressive disease in the right middle lobe. Numerous nodular opacities versus nodules, for example in the right middle lobe measuring 12 and 10 mm. Pleural space: Progressive, moderate bilateral pleural effusions. No pneumothorax. Heart: Unremarkable. No cardiomegaly. No pericardial effusion. Lymph nodes: Mediastinal and bilateral perihilar lymphadenopathy is again demonstrated. For example enlarged prevascular lymph nodes, the largest measuring 2.2 x 1.8 cm. Mild retrocrural lymphadenopathy. There is upper abdominal celiac axis she lymphadenopathy, as before. Shotty left axillary lymphadenopathy. Liver: Numerous hypodense liver lesions are again demonstrated, the largest in the right hepatic lobe measures larger than 4 cm. Bones/joints: No acute fracture seen. No discrete suspicious lytic or blastic lesions identified bone. Soft tissues: Unremarkable. IMPRESSION: 1. No evidence of pulmonary emboli. 2. Progressive pneumonia, in particular dense bilateral lower lobe consolidations. 3. Progressive bilateral pleural effusions. PROGNOSIS: Fair ACTIVITY: [As tolerated]. DIET: Regular, as tolerated DISCHARGE PLAN: Home with home O2 and follow up with Dr. Morin within 7 days Remain compliant with treatment plan and medications Return to the ER if you experience any problems DISPOSITION: Home DISCHARGE INSTRUCTIONS: 1. Follow up with Dr. Morin within 7 days ITEMS TO FOLLOWUP ON ON OUTPATIENT: 1. none DISCHARGE CONDITION: [Stable]. TIME SPENT ON DISCHARGE: 35 minutes. Vital Signs/I&Os Vital Signs Date Time Temp Pulse Resp B/P (MAP) Pulse Ox O2 Delivery O2 Flow Rate FiO2 04/26/20 10:35 83 Room Air 04/26/20 10:35 1.0 04/26/20 08:12 124/74 04/26/20 06:00 98.0 118 18 I&O- Last 24 Hours up to 6 AM 04/26/20 06:00 Intake Total 1430 ml Output Total 800 ml Balance 630 ml Laboratory Data Labs 24H Laboratory Tests 2 04/25/20 11:47: Bedside Glucose (Misc Panel) 105 04/25/20 16:30: Bedside Glucose (Misc Panel) 116H 04/25/20 20:25: Bedside Glucose (Misc Panel) 140H 04/26/20 05:19: Nucleated Red Blood Cells % (auto) 0.0, Anion Gap 4L, Glomerular Filtration Rate > 60.0, Calcium Level 8.9, Total Bilirubin 0.6, Aspartate Amino Transf (AST/SGOT) 20, Alanine Aminotransferase (ALT/SGPT) 17, Alkaline Phosphatase 66, Total Protein 6.1L, Albumin 2.8L, Albumin/Globulin Ratio 0.8 CBC/BMP Laboratory Tests 04/26/20 05:19 FSBS Laboratory Tests Test 04/25/20 11:47 04/25/20 16:30 04/25/20 20:25 Range/Units Bedside Glucose (Misc Panel) 105 116 140 70-105 MG/DL Microbiology Microbiology 04/24/20 Respiratory Virus Panel (PCR) (SANJAY) - Final, Complete 04/24/20 Blood Culture - Preliminary, Resulted No growth after 24 hours . All specim... 04/24/20 Blood Culture - Preliminary, Resulted No growth after 24 hours . All specim... 04/24/20 Gram Stain - Final, Resulted 04/24/20 Sputum Culture, Resulted Pending Discharge Medications Scheduled Ascorbic Acid (Vitamin C) 500 Mg Capsule, 500 CAP PO DAILY, (Reported) Cyanocobalamin (Vitamin B-12) (B-12) 1,000 Mcg Tablet, 1,000 MCG PO DAILY, (Reported) Levofloxacin (Levaquin) 750 Mg Tablet, 750 MG PO DAILY@06 Lisinopril (Lisinopril) 10 Mg Tablet, 10 MG PO DAILY, (Reported) Loratadine (Claritin) 10 Mg Capsule, 10 MG PO DAILY for allergy symptoms, (Reported) Lovastatin (Lovastatin) 40 Mg Tablet, 40 MG PO DAILY, (Reported) with food Metformin HCl (Metformin HCl) 1,000 Mg Tablet, 1,000 MG PO QHS, (Reported) Multivitamin (Multivitamins) 1 Each Capsule, 1 CAP PO DAILY, (Reported) [place]-3 Fatty Acids/Fish Oil (Fish Oil 1,000 mg Capsule) 1 Each Capsule, 1,000 MG PO DAILY, (Reported) Salmeterol/Fluticasone (Advair 500-50 Diskus) 1 Each Blst.w.dev, 1 PUFF INH BID, (Reported) Umeclidinium [place] (Incruse Ellipta) 62.5 Mcg Blst.w.dev, 1 PUFF INH DAILY, (Reported) Scheduled PRN Fluticasone Propionate (Flovent Hfa) 44 Mcg/Act Aer.w.adap, 2 PUFF INH PRN PRN for SHORTNESS OF BREATH, (Reported) Miscellaneous Medications Glucosamine/Chondr Galvan A Sod (Cidaflex Tablet) 1 Each Tablet, 1 TAB PO, (Reported) Allergies Coded Allergies: No Known Drug Allergies (Verified Allergy, Unknown, 04/24/20) GME ATTESTATION GME ATTESTATION My faculty preceptor for this patient encounter was physically present during the encounter and was fully available. All aspects of the patient interview, examination, medical decision making process, and medical care plan development were reviewed and approved by the faculty preceptor. The faculty preceptor is aware and concurs with the plan as stated in the body of this note and will attest to such by his/her cosignature. ATTENDING NOTE I, Abigail Shaw, have independently examined this patient and performed my own physical exam, as well as reviewed the documentation and edited where necessary. I have discussed in detail with the resident / student the findings and plan of treatment as documented by the resident / student and edited their note. I agree with their findings and treatment plan and have edited their documentation. I wi ll continue to follow the patient during this hospital stay. Time spent on discharge: - 35 minutes DEVANG ANTUNEZ MD Apr 26, 2020 11:45 ABIGAIL SHAW MD Apr 26, 2020 15:46
[2020-04-29 15:07] LABS: BODY FLUID CULTURE Not indicated. (.); LEGIONELLA ANTIGEN URINE Negative (Negative); ORGANISM ID Not indicated. (.); SPECIMEN SOURCE Urine (.); URINE STREP PNEUMONIAE ANTIGEN Negative (Negative)
== END 2020-04-26 14:53 | disposition home or self-care (01) | DRG 139 ==
LOC: M ED 10:30 → EDBD 10:30 → M ED INP 13:48 → ENRESERV 14:39 → M MS5PR 15:01 → M MSPAV 17:50
PROVIDERS: ADMIT Internal Medicine; ATTEND Internal Medicine
DX: J18.9 Pneumonia, unspecified organism (principal); C77.2 Secondary and unspecified malignant neoplasm of intra-abdominal lymph nodes; J90 Pleural effusion, not elsewhere classified; J44.0 Chronic obstructive pulmonary disease with (acute) lower respiratory infection; C78.00 Secondary malignant neoplasm of unspecified lung; C78.7 Secondary malignant neoplasm of liver and intrahepatic bile duct; J44.1 Chronic obstructive pulmonary disease with (acute) exacerbation; E11.9 Type 2 diabetes mellitus without complications; I10 Essential (primary) hypertension; Z79.899 Other long term (current) drug therapy; Z87.891 Personal history of nicotine dependence

== ENCOUNTER 2020-04-28 13:34 | Inpatient (IN) | payer OTHER ==
[~2020-04-28] VITALS: Ht 172.7 cm; Wt 81.3 kg
[~2020-04-28 13:34] MED LIST changes: +B-12100020 PO; +FLUT44IN INH; +LEVA750T7 PO
[2020-04-28 14:56] LABS: BASO % 0.2 % (0.0-1.0); EOS % 0.1 % (0.0-3.0); HEMATOCRIT 45.8 % (42.0-52.0); HEMOGLOBIN 14.9 g/dl (13.5-17.5); LYMPH # 0.7 10^3/uL (1.5-5.0); LYMPH % 6.4 % (24.0-44.0); MEAN CORPUSCULAR HEMOGLOBIN 29.8 pg (27.0-33.0); MEAN CORPUSCULAR HGB CONC 32.5 g/dl (32.0-36.5); MEAN CORPUSCULAR VOLUME 91.6 fl (80.0-96.0); MONO # 1.6 10^3/uL (0.0-0.8); MONO % 15.1 % (0.0-5.0); NEUTROPHILS # 8.1 10^3/uL (1.5-8.5); NEUTROPHILS % 77.8 % (36.0-66.0); PLATELET COUNT, AUTOMATED 475 10^3/uL (150-450); WHITE BLOOD COUNT 10.4 10^3/uL (4.0-10.0)
--- NOTE | 2020-04-28 15:32 | REPVR ---
PROCEDURE INFORMATION: Exam: XR Chest, 2 Views Exam date and time: 04/28/2020 3:09 PM Age: 59 years old Clinical indication: Other: Tachycardia; Additional info: Tachycardia, hypoxia TECHNIQUE: Imaging protocol: XR of the chest Views: 2 views. COMPARISON: CR PORTABLE CHEST X-RAY 04/24/2020 10:48 AM FINDINGS: Lungs: Bilateral basilar infiltrates are stable since the previous examination. Pleural space: Bilateral pleural effusions are stable since the previous examination. There is no pneumothorax. Heart/Mediastinum: Unremarkable. No cardiomegaly. Bones/joints: Unremarkable. IMPRESSION: No change. Electronically signed by: Jovani San On 04/28/2020 15:32:22 PM
--- NOTE | 2020-04-28 15:55 | HPEPDOC ---
[facility] Medical History & Physical Date of Admission Apr 28, 2020 Date of Service: Apr 28, 2020 Attending Physician: Daphne Kline MD History and Physical CHIEF COMPLAINT: Incr SOB, rectal bleeding HISTORY OF PRESENT ILLNESS: Mr. Woodall is a 59 yo M with a PMHx of COPD, HTN, HLD, and T2DM who was recently diagnosed with cancer of unknown origin that has spread to the liver, lymph nodes, and possibly lung, who presented to the ED complaining of acute onset of rectal bleeding, incr shortness of breath since the evening of 04/27/20. Patient was recently discharged from [facility] on 04/24/20 after a two day stay for treatment of bilateral pneumonia, bilateral pleural effusions. There was a concern that the findings that were being called "pneumonia" were actually neoplasm. Patient was sent home with home O2 1 L NC to maintain saturation >88%. The evening of 04/27/20, the patient states he was in the bathroom when he had several bright red dark red mixed stools with clots. He was unable to quantify the amount of blood in the toilet but states that it did not fill the bowl. He went to bed that night and then woke up the next morning and had 34 more episodes of bloody bowel movements. He has no prior history of bleeding, is on no anticoagulation or antiplatelet therapy, denies changing his diet having new medications outside of the meds he was sent home with. He also denies fevers, chills, abdominal pain, nausea, vomiting, diarrhea, lightheadedness, dizziness, chest pain, falls, blurry vision. He admits to having increased shortness of breath especially with increased exertion, unsteadiness on his feet, shakiness, productive cough of white phlegm. He states to be have been compliant with levaquin PO. Due to the continued bleeding he had his friend called 911 who brought him to the emergency room. In the emergency room his heart rate was [id number], blood pressure 124/57, 90% on 2 L nasal cannula. He was normal sinus rhythm. The patient had one very small bright red bloody bowel movement. He was started on IV fluids. Upon review his chart from his prior hospitalization, it appears the patient had baseline tachycardia then as well, 110-120's. Chest x-ray here showed bilateral basilar infiltrates that are stable since the previous examination. WBC was mildly elevated, trop and BNP were pending. CMP was unremarkable, BUN was within normal limits. Patient was admitted under inpatient status for further workup of GI bleed, increased SOB with known bilateral PNA, sepsis . Note: Patient states that there is a concern for bladder cancer for which he follows with urology as outpatient. He had seen Dr. Lopez (heme/onc) inpatient on last admission and was due to see her in office on 04/29/2020. REVIEW OF SYSTEMS: Neg except for what is mentioned above PAST MEDICAL HISTORY: Bilateral interstitial pneumonia Bilateral pleural effusions HTN HLD COPD T2DM non insulin dependent Metastatic cancer of uncertain origin in liver, intra-abdominal lymph nodes, and possibly lungs. ? 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 HOME MEDICATIONS: Please see below. PHYSICAL EXAMINATION: VS: Please see below CONSTITUTIONAL: Diaphoretic, sitting up in bed, AAO x 3 EYES: PERRLA, EOM intact HENT, MOUTH: Normocephalic, atraumatic, moist mucous membranes NECK: SUPPLE, no JVD, no lymphadenopathy, no carotid bruit CV: Regular rate and rhythm, S1S2 normal, no murmurs/rubs/gallops RESPIRATORY: Mild wheezing, intermittent. No rales/rhonchi GI: BS positive in 4 quadrants, soft, nontender, nondistended, no rebound or guarding, no organomegaly : Deferred MUSCULOSKELETAL: Normal ROM. No cyanosis, clubbing, swelling, joint deformity, extremity edema INTEGUMENTARY: Intact, no rashes, no lesions, no erythema NEUROLOGIC: Cranial Nerves II-XII are intact, no focal deficits PSYCHIATRIC: Mood and affect are normal LABORATORY DATA: Please see below MICROBIOLOGY: UA, Blood cultures x 2 sets pending IMAGING: CXR 04/28/20: No change from CXR from 04/24/20 Lungs: Bilateral basilar infiltrates are stable since the previous examination. Pleural space: Bilateral pleural effusions are stable since the previous examination. There is no pneumothorax. Heart/Mediastinum: Unremarkable. No cardiomegaly. Bones/joints: Unremarkable. Last CT ANGIO 04/24/20: 1. No evidence of pulmonary emboli. 2. Progressive pneumonia, in particular dense bilateral lower lobe consolidations. 3. Progressive bilateral pleural effusions. ASSESSMENT: 59 yo M with a PMHx of COPD, HTN, HLD, and T2DM who was recently diagnosed with cancer of unknown origin that has spread to the liver, lymph nodes, and possibly lung, who was admitted for GI bleed, increasing shortness of breath. PLAN: GI bleed, acute -No hx of GI bleed, anticoagulation or antiplatelet use. -H/H stable at 14/45, PLTs >400 -Multiple BRB and DRB with clots during bowel movements at home. -VS show: tachycardia; however, patient is believed to have baseline tachycardia 110-120 (seen last admission) -F/u CBC Q6H, type and screen -NPO, IVFs at 100 cc/hr while waiting for BNP, trop (if neg, increase to 125 cc/hr) -Dr. Trotter (surgery) consulted to see in AM. Shortness of breath likely multifactorial 2/2 to bilateral pneumonia, metastatic cancer of unknown origin, hx of COPD but not in exacerbation -Technically qualifying as sepsis (tachycardia, mild WBC) with known pneumonia , LA wnl -CXR: unchanged from prior - it is unlikely PNA has worsened. -Anemia is currently not contributing to this. Patient admits that since being home he has walked more than normal and it makes him increasingly SOB -Currently 90% on 2 L NC, previously on 1 L NC -F/u procalcitonin, BNP, trop, sputum cx, blood culture -Continuing levofloxacin IV while NPO, xopenex PRN and ATC Metastatic cancer of uncertain origin in liver, intra-abdominal lymph nodes, and possibly lungs. -Seen by Dr. Lopez last admission, f/u in office after d/c was supposed to be 04/29/20 HTN -Stable -NPO, hold ACEi HLD -Holding statin DM type II -Q6H FS, ISS GI px -PPI BID DVT px -AC CI. SCD, teds. DISPOSITION: Admit as acute inpatient. PT/OT when appropriate. Surgery to see in AM. Plan is discharge hopefully back to home when medically improved. Vital Signs Vital Signs Date Time Temp Pulse Resp B/P (MAP) Pulse Ox O2 Delivery O2 Flow Rate FiO2 04/28/20 14:53 124 150/69 (96) 128 136/63 (87) 131 136/68 (90) 04/28/20 13:54 96.8 15 89 Room Air Laboratory Data Labs 24H Laboratory Tests 2 04/28/20 14:46: Immature Granulocyte % (Auto) 0.4, Neutrophils (%) (Auto) 77.8H, Lymphocytes (%) (Auto) 6.4L, Monocytes (%) (Auto) 15.1H, Eosinophils (%) (Auto) 0.1, Basophils (%) (Auto) 0.2, Neutrophils # (Auto) 8.1, Lymphocytes # (Auto) 0.7L, Monocytes # (Auto) 1.6H, Eosinophils # (Auto) 0.0, Basophils # (Auto) 0.0, Nucleated Red Blood Cells % (auto) 0.0 04/28/20 15:08: POC Glucose (Misc Panel) 125H, POC Sodium (Misc Panel) 134L, POC Potassium (Misc Panel) 5.0, POC Chloride (Misc Panel) 96L, POC Total CO2 (Misc Panel) 26.0, POC Blood Urea Nitrogen (Misc Panel 17, POC Ionized Calcium (Misc Panel) 5.0, POC Creatinine (Misc Panel) 0.9, POC Hematocrit (Misc Panel) 47.0 04/28/20 15:40: CBC/BMP Laboratory Tests 04/28/20 14:46 Home Medications Scheduled Ascorbic Acid (Vitamin C) 500 Mg Capsule, 500 CAP PO DAILY Cyanocobalamin (Vitamin B-12) (B-12) 1,000 Mcg Tablet, 1,000 MCG PO DAILY Glucosamine/Chondr Galvan A Sod (Cidaflex Tablet) 1 Each Tablet, 1 TAB PO DAILY Levofloxacin (Levofloxacin) 750 Mg Tablet, 750 MG PO DAILY Lisinopril (Lisinopril) 10 Mg Tablet, 10 MG PO DAILY Loratadine (Claritin) 10 Mg Capsule, 10 MG PO DAILY Lovastatin (Lovastatin) 40 Mg Tablet, 40 MG PO DAILY Metformin HCl (Metformin HCl) 1,000 Mg Tablet, 1,000 MG PO QHS Multivitamin (Multivitamins) 1 Each Capsule, 1 CAP PO DAILY [place]-3 Fatty Acids/Fish Oil (Fish Oil 1,000 mg Capsule) 1 Each Capsule, 1,000 MG PO DAILY Salmeterol/Fluticasone (Advair 500-50 Diskus) 1 Each Blst.w.dev, 1 PUFF INH BID Umeclidinium [place] (Incruse Ellipta) 62.5 Mcg Blst.w.dev, 1 PUFF INH DAILY Scheduled PRN Fluticasone Propionate (Flovent Hfa) 44 Mcg/Act Aer.w.adap, 2 PUFF INH QID PRN for SHORTNESS OF BREATH Allergies Coded Allergies: No Known Drug Allergies (Verified Allergy, Unknown, 04/24/20) A-FIB/CHADSVASC A-FIB History Current/History of A-Fib/PAF?: No Current PO Anticoag Therapy: No Age/Risk Factor Scoring CHADSVASC: CHADSVASC Response (Comments) Value Age Risk Factor Age < 65 years old 0 Gender Risk Factor Male 0 Hx of CHF No 0 Hx of HTN No 0 Hx of Stroke/TIA/or VTE No 0 Hx of Diabetes No 0 Hx of Vascular Disease No 0 Total 0 Treatment Treatment ordered: NONE, Other Other anticoagulant ordered: bleed Reason Anticoagulant not given: Current bleeding Daphne Kline MD Apr 28, 2020 15:55
[2020-04-28 16:03] LABS: INR 1.16
[2020-04-28 16:04] LABS: PARTIAL THROMBOPLASTIN TIME 38.2 SECONDS (24.2-38.5)
[2020-04-28 16:14] LABS: ALBUMIN 2.6 GM/DL (3.2-5.2); BILIRUBIN,DIRECT 0.1 MG/DL (0.0-0.2); BILIRUBIN,TOTAL 0.4 MG/DL (0.2-1.0); TOTAL PROTEIN 6.1 GM/DL (6.4-8.2)
[2020-04-28] MEDS ORDERED: LEVO750T13 PO (16:32)
--- NOTE | 2020-04-28 17:25 | REPVR ---
PROCEDURE INFORMATION: Exam: CT Abdomen And Pelvis Without Contrast Exam date and time: 04/28/2020 5:03 PM Age: 59 years old Clinical indication: Condition or disease; Other: Rectal bleed, HX of metastatic cancer TECHNIQUE: Imaging protocol: Computed tomography of the abdomen and pelvis without contrast. Radiation optimization: All CT scans at this facility use at least one of these dose optimization techniques: automated exposure control; mA and/or kV adjustment per patient size (includes targeted exams where dose is matched to clinical indication); or iterative reconstruction. COMPARISON: CT ABD/PELVIS W/ CONTRAST - OUTSIDE PRIOR 03/24/2020 2:47 PM FINDINGS: Lungs: Bilateral lung nodules and masses are identified throughout the lung bases increased since the previous examination intermixed with infiltrates and bibasilar atelectasis. It is difficult to tell what is metastatic and what is infectious or inflammatory. Pleural space: There is an enlarging right effusion. The left effusion appears slightly smaller. Liver: The liver is not enlarged. Given the limitations of comparing and non IV contrast study 2 in IV contrast study the liver lesions appear is possibly more numerous with the largest previous lesion now much larger on this examination. Now it measures at least 53 by 69 mm. Gallbladder and bile ducts: There is increased density within the gallbladder possibly sludge. Pancreas: Normal. No ductal dilation. Spleen: Normal. No splenomegaly. Adrenals: Normal. No mass. Kidneys and ureters: Normal. No hydronephrosis. Stomach and bowel: Unremarkable. No obstruction. No mucosal thickening. Scattered diverticula. Appendix: No evidence of appendicitis. Intraperitoneal space: There is no free air however, there is now fluid seen, small amount, extending into the pelvis. Vasculature: Unremarkable. No abdominal aortic aneurysm. Aortic calcifications. Lymph nodes: There is diffuse haziness in the mesentery more severe since the previous examination with numerous nodules and lymph nodes seen. Diffuse retroperitoneal adenopathy is identified. This is surrounding the aorta with the size similar to the previous examination given differences in technique. Urinary bladder: Unremarkable as visualized. Reproductive: Unremarkable as visualized. Bones/joints: Arthritic changes are seen in the spine. Stable sclerotic areas possibly bone islands noted within the femoral bilaterally. Soft tissues: Bilateral fat containing inguinal hernias are stable. Anterior abdominal/pelvic wall inflammatory changes are again identified of unknown etiology. IMPRESSION: 1. Suspect worsening hepatic disease given comparing a noncontrast study to a contrast study. 2. Worsening lung bases. 3. Worsening nodularity in lymph nodes within the mesentery with stable appearing retroperitoneal disease. 4. Ascites, new. Electronically signed by: Jovani San On 04/28/2020 17:25:18 PM
[2020-04-28] MEDS ORDERED: GLUCOSE 4GM CHEW TABLET PO PRN (17:30)
[2020-04-28] MEDS ORDERED: GLUCAGON INJ 1MG VIAL SC PRN (17:30)
[2020-04-28] MEDS ORDERED: DEXTROSE 50% 50 ML SYRINGE IV PRN (17:30)
[2020-04-28] MEDS ORDERED: LEVALBUTEROL 1.25 MG/0.5 ML CONCENTRATE NEB NEB PRN (17:30)
[2020-04-28] MEDS ORDERED: FLUTICASONE HFA 44 MCG 10.6GM INHALER (FLOVENT) INH PRN (17:30)
[2020-04-28 17:35] VITALS: BP 132/70
[2020-04-28] MEDS ORDERED: VENTAER INH (17:45)
[2020-04-28 17:55] LABS: HEMATOCRIT 44.9 % (42.0-52.0); HEMOGLOBIN 14.4 g/dl (13.5-17.5); MEAN CORPUSCULAR HEMOGLOBIN 29.7 pg (27.0-33.0); MEAN CORPUSCULAR HGB CONC 32.1 g/dl (32.0-36.5); MEAN CORPUSCULAR VOLUME 92.6 fl (80.0-96.0); RED BLOOD COUNT 4.85 10^6/uL (4.30-6.10)
[2020-04-28 17:59] LABS: PLATELET COUNT, AUTOMATED 373 10^3/uL (150-450)
[2020-04-28] MEDS: LevoFLOXacin IV 750 MG in IV 1 EA IV SCH (17:59)
[2020-04-28] MEDS: PANTOPRAZOLE 40MG VIAL (C9113 PER 1) IV SCH (17:59)
[2020-04-28] MEDS: NS 1,000 ML IV SCH (18:00)
[2020-04-28 18:08] LABS: NT-PRO BNP 112 PG/ML (<125); TROPONIN I < 0.02 NG/ML (< 0.10)
[2020-04-28] MEDS: HumaLOG INSULIN (NovoLOG) PER UNIT SC SCH (18:22)
[2020-04-28 20:00] VITALS: BP 127/69
[2020-04-28] MEDS: LEVALBUTEROL 1.25 MG/0.5 ML CONCENTRATE NEB NEB SCH (21:14)
[2020-04-28 22:46] LABS: HEMATOCRIT 43.5 % (42.0-52.0); HEMOGLOBIN 13.7 g/dl (13.5-17.5); MEAN CORPUSCULAR HEMOGLOBIN 28.7 pg (27.0-33.0); MEAN CORPUSCULAR HGB CONC 31.5 g/dl (32.0-36.5); PLATELET COUNT, AUTOMATED 426 10^3/uL (150-450); RED BLOOD COUNT 4.78 10^6/uL (4.30-6.10); WHITE BLOOD COUNT 11.2 10^3/uL (4.0-10.0)
[2020-04-29] VITALS: BP 128/70
[2020-04-29] MEDS ORDERED: RAMELTEON 8 MG TAB (ROZEREM) PO ONE ×2 (02:00→21:30)
[2020-04-29] MEDS: LEVALBUTEROL 1.25 MG/0.5 ML CONCENTRATE NEB NEB SCH ×4 (02:00→19:06)
[2020-04-29 04:00] VITALS: BP 158/73
[2020-04-29 04:22] LABS: HEMATOCRIT 45.6 % (42.0-52.0); HEMOGLOBIN 14.5 g/dl (13.5-17.5); MEAN CORPUSCULAR HEMOGLOBIN 29.4 pg (27.0-33.0); MEAN CORPUSCULAR HGB CONC 31.8 g/dl (32.0-36.5); MEAN CORPUSCULAR VOLUME 92.3 fl (80.0-96.0); PLATELET COUNT, AUTOMATED 470 10^3/uL (150-450); RED BLOOD COUNT 4.94 10^6/uL (4.30-6.10); WHITE BLOOD COUNT 11.6 10^3/uL (4.0-10.0)
[2020-04-29 04:51] LABS: ALBUMIN 2.6 GM/DL (3.2-5.2); ALT/SGPT 20 U/L (12-78); BILIRUBIN,TOTAL 0.3 MG/DL (0.2-1.0); BLOOD UREA NITROGEN 17 MG/DL (7-18); CALCIUM LEVEL 8.8 MG/DL (8.5-10.1); CARBON DIOXIDE LEVEL 26 MEQ/L (21-32); CHLORIDE LEVEL 102 MEQ/L (98-107); CREATININE FOR GFR 0.61 MG/DL (0.70-1.30); GLOMERULAR FILTRATION RATE > 60.0 (>56); GLUCOSE, FASTING 125 MG/DL (70-100); POTASSIUM SERUM 5.3 MEQ/L (3.5-5.1); SODIUM LEVEL 135 MEQ/L (136-145); TOTAL PROTEIN 6.1 GM/DL (6.4-8.2)
[2020-04-29] MEDS: NS 1,000 ML IV SCH (05:27)
[2020-04-29] MEDS: PANTOPRAZOLE 40MG VIAL (C9113 PER 1) IV SCH ×2 (05:27→18:14)
[2020-04-29] MEDS: HumaLOG INSULIN (NovoLOG) PER UNIT SC SCH ×4 (05:28→18:14)
--- NOTE | 2020-04-29 05:42 | ECGEPIP ---
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
[2020-04-29 08:00] VITALS: BP 143/78
[2020-04-29 11:21] LABS: MEAN CORPUSCULAR HGB CONC 31.8 g/dl (32.0-36.5); MEAN CORPUSCULAR VOLUME 91.3 fl (80.0-96.0); PLATELET COUNT, AUTOMATED 471 10^3/uL (150-450); RED BLOOD COUNT 4.82 10^6/uL (4.30-6.10); WHITE BLOOD COUNT 9.5 10^3/uL (4.0-10.0)
[2020-04-29 12:00] VITALS: BP 139/74
--- NOTE | 2020-04-29 12:48 | IPNPDOC ---
Text Note Date of Service The patient was seen on 04/29/20. NOTE SUBJECTIVE: -Remains on 2L NC -No further episodes of bloody BMs overnight OBJECTIVE: VS: Please see below CONSTITUTIONAL: NAD, sitting up in bed, nasal canula in place EYES: PERRLA, EOMI, anicteric HENT: Normocephalic, atraumatic, moist mucous membranes NECK: SUPPLE, no JVD CV: Tachycardic, normal rhythm, S1S2 normal, no murmurs/rubs/gallops RESPIRATORY: No crackles, diminished bases with scattered intermittent expiratory wheeze, no rhonchi. GI: Normoactive bowel sounds in all 4 quadrants, soft, nontender, nondistended, no rebound or guarding EXT: No LE edema, WWP INTEGUMENTARY: Intact, no rashes, no lesions, no erythema NEUROLOGIC: Cranial Nerves II-XII are intact, no focal deficits PSYCHIATRIC: Mood and affect are normal LABORATORY DATA: Reviewed. Please see below WBC 11.6 Hgb 14.5 platelets 470 na 135 K 5.3 Cr 0.61 MICROBIOLOGY: UA, Blood cultures x 2 sets pending IMAGING: CXR 04/28/20: No change from CXR from 04/24/20 Lungs: Bilateral basilar infiltrates are stable since the previous examination. Pleural space: Bilateral pleural effusions are stable since the previous examination. There is no pneumothorax. Heart/Mediastinum: Unremarkable. No cardiomegaly. Bones/joints: Unremarkable. Last CT ANGIO 04/24/20: 1. No evidence of pulmonary emboli. 2. Progressive particular dense bilateral lower lobe consolidations. 3. Progressive bilateral pleural effusions. ASSESSMENT: 59 yo M with a PMHx of COPD, HTN, HLD, and T2DM who was recently diagnosed with cancer of unknown origin that has spread to the liver, lymph nodes, and possibly lung, who was admitted for GI bleed and worsening shortness of breath. PLAN: LGIB, acute -No hx of GI bleeding, anticoagulation or antiplatelet use. -H/H stable, PLTs >400 -F/u CBC daily -Active type and screen -Seen by surgery, placed on a regular diet, no intervention at this time, to monitor bleeding. Per onc, recently had a colonoscopy at [place]. Shortness of breath likely multifactorial 2/2 metastatic cancer of unknown origin, hx of COPD and potential PNA -Technically met sepsis criteria with tachycardia and mild WBC with recent diagnosis of pneumonia -CXR: unchanged from prior - it is unlikely PNA has worsened -Currently on 2 L NC, previously on 1 L NC at baseline -F/u procalcitonin, BNP, trop, sputum cx, blood culture -Continuing levofloxacin PO, xopenex PRN and ATC Metastatic cancer of uncertain origin in liver, intra-abdominal lymph nodes, and possibly lungs. -Seen by Dr. Lopez last admission, f/u in office after d/c was supposed to be 04/29/20. Called and spoke with her, she will reschedule his appt. -Patient actually discussing the idea of home with hospice. Per our discussion, he would like a trial of chemo/palliative therapies with Dr. Lopez but is amenable to hospice consult and palliative care consult. Also requesting hospital bed, help at home as he is profoundly SOB with exertion that it limits his ability for self care and chores around the home. Lives with a roommate and has 2 sisters who are local. Discussed with PFS and Jameel Fitch will discuss a vailable home services. -Hospice consult -Palliative care consult HTN -Stable -c/w ACEi HLD -c/w statin DM type II -FS AC/HS, ISS -hypoglycemia protocol GI px -PPI BID DVT px -SCD, teds. DISPOSITION: Acute inpatient. PT/OT. Plan is hopefully discharge him home with services tomorrow after hospice and pall care consult and setting up services. PT/OT onboard. VS,Fishbone, I+O VS, Fishbone, I+O Laboratory Tests 04/28/20 14:46 04/28/20 17:22 04/28/20 22:41 04/29/20 04:06 Vital Signs Date Time Temp Pulse Resp B/P (MAP) Pulse Ox O2 Delivery O2 Flow Rate FiO2 04/29/20 08:00 96.7 122 20 143/78 (99) 100 Nasal Cannula 2.0 l I&O- Last 24 Hours up to 6 AM 04/29/20 06:00 Intake Total 0 ml Output Total 275 ml Balance -275 ml SALOMÓN MALDONADO MD Apr 29, 2020 08:36
[2020-04-29] MEDS ORDERED: SLF 3 ML SYR IV PRN (13:30)
[2020-04-29] MEDS: SLF 3 ML SYR IV SCH ×2 (13:40→20:26)
[2020-04-29 16:00] VITALS: BP 139/84
[2020-04-29 16:20] LABS: HEMATOCRIT 44.1 % (42.0-52.0); HEMOGLOBIN 14.3 g/dl (13.5-17.5); MEAN CORPUSCULAR HEMOGLOBIN 29.2 pg (27.0-33.0); MEAN CORPUSCULAR HGB CONC 32.4 g/dl (32.0-36.5); PLATELET COUNT, AUTOMATED 456 10^3/uL (150-450); WHITE BLOOD COUNT 9.8 10^3/uL (4.0-10.0)
[2020-04-29] MEDS: LevoFLOXacin IV 750 MG in IV 1 EA IV SCH (18:14)
[2020-04-29 20:00] VITALS: BP 140/80
[2020-04-29] MEDS ORDERED: HumaLOG INSULIN (NovoLOG) PER UNIT SC SCH (21:00)
[2020-04-29 22:53] LABS: HEMATOCRIT 41.8 % (42.0-52.0); HEMOGLOBIN 13.4 g/dl (13.5-17.5); MEAN CORPUSCULAR HEMOGLOBIN 28.8 pg (27.0-33.0); MEAN CORPUSCULAR HGB CONC 32.1 g/dl (32.0-36.5); MEAN CORPUSCULAR VOLUME 89.9 fl (80.0-96.0); PLATELET COUNT, AUTOMATED 418 10^3/uL (150-450); RED BLOOD COUNT 4.65 10^6/uL (4.30-6.10); WHITE BLOOD COUNT 10.3 10^3/uL (4.0-10.0)
[2020-04-30] VITALS: BP 159/79
[2020-04-30] MEDS: LEVALBUTEROL 1.25 MG/0.5 ML CONCENTRATE NEB NEB SCH ×3 (02:00→14:48)
[2020-04-30 04:00] VITALS: BP 152/98
[2020-04-30] MEDS: PANTOPRAZOLE 40MG VIAL (C9113 PER 1) IV SCH (05:18)
[2020-04-30] MEDS: SLF 3 ML SYR IV SCH (05:19)
[2020-04-30 05:26] LABS: HEMATOCRIT 45.5 % (42.0-52.0); HEMOGLOBIN 14.4 g/dl (13.5-17.5); MEAN CORPUSCULAR HEMOGLOBIN 28.9 pg (27.0-33.0); MEAN CORPUSCULAR HGB CONC 31.6 g/dl (32.0-36.5); MEAN CORPUSCULAR VOLUME 91.4 fl (80.0-96.0); PLATELET COUNT, AUTOMATED 458 10^3/uL (150-450); RED BLOOD COUNT 4.98 10^6/uL (4.30-6.10); WHITE BLOOD COUNT 10.3 10^3/uL (4.0-10.0)
[2020-04-30 05:46] LABS: BLOOD UREA NITROGEN 18 MG/DL (7-18); CALCIUM LEVEL 8.9 MG/DL (8.5-10.1); CARBON DIOXIDE LEVEL 30 MEQ/L (21-32); CHLORIDE LEVEL 101 MEQ/L (98-107); CREATININE FOR GFR 0.91 MG/DL (0.70-1.30); GLOMERULAR FILTRATION RATE > 60.0 (>56); GLUCOSE, FASTING 139 MG/DL (70-100); POTASSIUM SERUM 5.3 MEQ/L (3.5-5.1); SODIUM LEVEL 135 MEQ/L (136-145)
[2020-04-30 08:00] VITALS: BP 131/76
[2020-04-30] MEDS: HumaLOG INSULIN (NovoLOG) PER UNIT SC SCH ×2 (08:11→13:00)
--- NOTE | 2020-04-30 10:02 | CR.PDOC ---
General Date of Consultation: Apr 30, 2020 Referring Provider: Daphne Kline MD Primary Care Physician: A Primary Care Physician Flavia Hylton NP Attending Physician: SALOMÓN MALDONADO MD Consultation REASON FOR CONSULTATION/CHIEF COMPLAINT: Consultation requested by Dr. Laguerre for this unfortunate 59 year old Caucsian with metastatic cancer of unknown primary. He has advance directives indicating DNR/DNI, no feeding tubes, trial of IVF, send to hospital if necessary. He reports he has heatl care proxiers ( his friend and his sister ). He was diagnosed a few months ago and recently was admitted with rectal bleeding. He reported today Dr Lopez told him previously he might be able to get palliative chemotherapy to slow his disease progression. On this admission he was found to have PN, bilateral pleural effusions. He stated today he would "need to get the fluid off my lungs" before he could start chemotherapy. HISTORY OF PRESENT ILLNESS: He was diagnosed a few months ago with widespread metastatic cancer of unknown primary. He has hepatic involvement, some enlargement of his prostate and possible involvement in his lungs. He tells me he developed diabetes a "few months ago". He was admitted here twie recently, once for PN and most recently with rectal bleeding. He was found to have worsening dyspnea, had some consolidation bilatereal lungs and bilateral pleural effusions. He indicated today he would like to try palliative treatment with chemotherapy if he can get into a better state physically. He reportedhis worst symptom presently is dyspnea along with early satiety and night sweats. He denies pain but reported his abdomen is a little uncomfortable from fluid accumulation. ALLERGIES: Please see below. HOME MEDICATIONS: Please see below. PAST MEDICAL HISTORY: 1. COPD 2. HTN 3. Type 2 DM SOCIAL HISTORY: Marital status and/or living arrangements: lives alone ,. 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 Has occasional edema lower ext RESPIRATORY: dyspnea, productive cough,wheezing, O2 dependent, unable to tolerat e laying flat GENITOURINARY: Urinary hesitancy MUSCULOSKELETAL: denies painful or swollen joints, bony discomfort GASTROINTESTINAL: early satiety SKIN: no lumps or bumps NEUROLOGICAL: denies headaches, confusion PSYCHIATRIC: denies depression, admits to nervousness over diagnosis. ENDOCRINE: type 2 DM ,denies any hypo/hyperglycemic episodes HEMATOLOGIC/LYMPHATIC: Platelets WNL ALLERGIC/IMMUNOLOGIC: [NA PHYSICAL EXAMINATION: VITAL SIGNS: Please see below. GENERAL APPEARANCE: Ill appearing male, sitting in recliner chair, poor eye contact, dyspneic at rest wearing O2 NC HEENT: pharynx clear, glasses RESPIRATORY: O2 in places, dyspneic at rest, reduced breath sounds bilateral bases. Exp wheezes CARDIOVASCULAR: RRR. ABDOMEN: Softly distended, +BS No obvious fluid wave EXTREMITIES: trace edema lowerext, no clubbing NEUROLOGICAL: grossly intact CN, unsteady gait requiring rollator PSYCHIATRIC: affect somewhat blunted LABORATORY DATA: Please see below. ASSESSMENT/PLAN: 1. Metastatic cancer unknown primary 2. COPD I explained the role of [facility] to Leobardo manrique the difference between my clinic and hospice. He stated his dyspnea is is w orst problem. If effusions improve his breathing may as well. He was concerned about getting SSD and a recliner chair before he is discharged. I communicated that to communications planner. I left him with a copy of "[facility]" and my contact information. I will wait to hear from him about a follow up. He rpeorts he does not drive nor does his friend so he is not sure how he would get to appointments once he gets discharged. I have notified communications planner about that as well. In my clinical opinion, he is likely hospice appropriate, however, he does want to try to get some palliative chemo if he can improve his health enough to tolerate it. I am open to workingwith him to amnage his sy mptoms as long as he is well enough to come in for outpatient visits. Vital Signs/I&O Vital Signs Date Time Temp Pulse Resp B/P (MAP) Pulse Ox O2 Delivery O2 Flow Rate FiO2 04/30/20 08:00 97.0 113 21 131/76 (94) 90 Nasal Cannula 2.0 I&O- Last 24 Hours up to 6 AM 04/30/20 05:59 Intake Total 2390 ml Output Total 450 ml Balance 1940 ml Laboratory Data Labs 24H Laboratory Tests 2 04/29/20 11:03: Nucleated Red Blood Cells % (auto) 0.0 04/29/20 12:00: Bedside Glucose (Misc Panel) 127H 04/29/20 16:10: Nucleated Red Blood Cells % (auto) 0.0 04/29/20 16:43: Bedside Glucose (Misc Panel) 121H 04/29/20 20:03: Bedside Glucose (Misc Panel) 151H 04/29/20 22:46: Nucleated Red Blood Cells % (auto) 0.0 04/30/20 05:15: Nucleated Red Blood Cells % (auto) 0.0, Anion Gap 4L, Glomerular Filtration Rate > 60.0, Calcium Level 8.9 CBC/BMP Laboratory Tests 04/29/20 11:03 04/29/20 16:10 04/29/20 22:46 04/30/20 05:15 Microbiology Microbiology 04/30/20 Gram Stain, Received Pending 04/30/20 Sputum Culture, Received Pending 04/28/20 Blood Culture - Preliminary, Resulted No growth after 24 hours . All specim... 04/28/20 Blood Culture - Preliminary, Resulted No growth after 24 hours . All specim... Allergies Coded Allergies: No Known Drug Allergies (Verified Allergy, Unknown, 04/24/20) Home Medications Scheduled Ascorbic Acid (Vitamin C) 500 Mg Capsule, 500 CAP PO DAILY, (Reported) Cyanocobalamin (Vitamin B-12) (B-12) 1,000 Mcg Tablet, 1,000 MCG PO DAILY, (Reported) Glucosamine/Chondr Galvan A Sod (Cidaflex Tablet) 1 Each Tablet, 1 TAB PO DAILY, (Reported) Levofloxacin (Levofloxacin) 750 Mg Tablet, 750 MG PO DAILY, (Reported) Lisinopril (Lisinopril) 10 Mg Tablet, 10 MG PO DAILY, (Reported) Loratadine (Claritin) 10 Mg Capsule, 10 MG PO DAILY, (Reported) Lovastatin (Lovastatin) 40 Mg Tablet, 40 MG PO DAILY, (Reported) Metformin HCl (Metformin HCl) 1,000 Mg Tablet, 1,000 MG PO QHS, (Reported) Multivitamin (Multivitamins) 1 Each Capsule, 1 CAP PO DAILY, (Reported) [place]-3 Fatty Acids/Fish Oil (Fish Oil 1,000 mg Capsule) 1 Each Capsule, 1,000 MG PO DAILY, (Reported) Salmeterol/Fluticasone (Advair 500-50 Diskus) 1 Each Blst.w.dev, 1 PUFF INH BID, (Reported) Umeclidinium [place] (Incruse Ellipta) 62.5 Mcg Blst.w.dev, 1 PUFF INH DAILY, (Reported) Scheduled PRN Albuterol Sulfate (Ventolin Hfa) 18 Gm Hfa.aer.ad, 2 PUFF INH QID PRN for SOB/WHEEZING, (Reported) Wanda HARRIS SALES TRAINING COORDINATOR Apr 30, 2020 10:01
[2020-04-30 12:00] VITALS: BP 138/76
--- NOTE | 2020-04-30 13:49 | DS.PDOC ---
Discharge Summary General Date of Admission Apr 28, 2020 at 16:33 Date of Discharge 04/30/2020 Attending Physician: SALOMÓN MALDONADO MD Discharge Summary PROCEDURES PERFORMED DURING STAY: None ADMITTING DIAGNOSES: 1. Rectal bleeding DISCHARGE DIAGNOSES: LGIB in the setting of metastatic cancer of uncertain origin metastatic to liver, intra-abdominal lymph nodes, and lung. Persistent bilateral pleural effusions Chronic hypoxemic respiratory failure HTN HLD COPD T2DM non insulin dependent COMPLICATIONS/CHIEF COMPLAINT: Rectal Bleeding. HISTORY OF PRESENT ILLNESS: 59 yo M with a PMHx of COPD, HTN, HLD, and T2DM who was recently diagnosed with cancer of unknown origin that has spread to the liver, lymph nodes, and possibly lung, who presented to the ED complaining of acute onset of rectal bleeding, increased shortness of breath since the evening of 04/27/20. Patient was recently discharged from [facility] on 04/24/20 after a two day stay for treatment of bilateral pneumonia with bilateral pleural effusions. There was a concern that the findings that were being called "pneumonia" were actually neoplasm and he was nonetheless treated with empiric levaquin and sent home with home O2 1 L NC to maintain saturation >88%. On the evening of 04/27/20, the patient had several bright red dark red mixed stools with clots. He went to bed that night and then woke up the next morning and had 34 more episodes of bloody bowel movements. He has no prior history of bleeding, is on no anticoagulation or antiplatelet therapy, without changing his diet or new medications. He also denied fevers, chills, abdominal pain, nausea, vomiting, diarrhea, lightheadedness, dizziness, chest pain, falls, blurry vision. He also had increased shortness of breath especially with exertion, unsteadiness on his feet, shakiness, productive cough of white phlegm despite compliance with levaquin PO. Due to the continued bleeding he had his friend called 911 who brought him to the emergency room. HOSPITAL COURSE: In the emergency room his heart rate was 428025i, blood pressure 124/57, 90% on 2 L nasal cannula. He was normal sinus rhythm. The patient had one very small bright red bloody bowel movement. He was started on IV fluids. Upon review his chart from his prior hospitalization, it appears the patient had baseline tachycardia then as well, 110-120's. Chest x-ray here showed bilateral basilar infiltrates that are stable since the previous examination. WBC was mildly elevated, trop and BNP stable. CMP was unremarkable, BUN and Cr was within normal limits. He was admitted to medicine for GIB. While inpatient, his GIb remitted spontaneously and was negligible and mostly noted on wiping while his H/H was found to be stable in normal range. He was seen by surgery and they r ecommended regular diet and follow up with oncology for ongoing malignancy characterization without emergent indication for inpatient colonoscopy. Upon more conversation, we consulted palliative care and hospice and he ultimately chose to pursue exploring characterization and treatment options with Dr. Lopez (onc) while engaging palliative care for now. He was assessed by PT/OT and deemed safe for home discharge. On working with PFS, we organized home supportive hardware and services. DISCHARGE MEDICATIONS: Please see below. ALLERGIES: Please see below. PHYSICAL EXAMINATION ON DISCHARGE: VITAL SIGNS: Please see below. CONSTITUTIONAL: NAD, sitting up in bed, nasal canula in place EYES: PERRLA, EOMI, anicteric HENT: Normocephalic, atraumatic, moist mucous membranes NECK: SUPPLE, no JVD CV: Tachycardic, normal rhythm, S1S2 normal, no murmurs/rubs/gallops RESPIRATORY: No crackles, diminished bases with scattered intermittent expiratory wheeze, no rhonchi. GI: Normoactive bowel sounds in all 4 quadrants, soft, nontender, nondistended, no rebound or guarding EXT: No LE edema, WWP INTEGUMENTARY: Intact, no rashes, no lesions, no erythema NEUROLOGIC: Cranial Nerves II-XII are intact, no focal deficits PSYCHIATRIC: Mood and affect are normal LABORATORY DATA: Please see below. IMAGING: CXR: Lungs: Bilateral basilar infiltrates are stable since the previous examination. Pleural space: Bilateral pleural effusions are stable since the previous examination. There is no pneumothorax. Heart/Mediastinum: Unremarkable. No cardiomegaly. Bones/joints: Unremarkable. IMPRESSION: No change. CT A/P: Lungs: Bilateral lung nodules and masses are identified throughout the lung bases increased since the previous examination intermixed with infiltrates and bibasilar atelectasis. It is difficult to tell what is metastatic and what is infectious or inflammatory. Pleural space: There is an enlarging right effusion. The left effusion appears slightly smaller. Liver: The liver is not enlarged. Given the limitations of comparing and non IV contrast study 2 in IV contrast study the liver lesions appear is possibly more numerous with the largest previous lesion now much larger on this examination. Now it measures at least 53 by 69 mm. Gallbladder and bile ducts: There is increased density within the gallbladder possibly sludge. Pancreas: Normal. No ductal dilation. Spleen: Normal. No splenomegaly. Adrenals: Normal. No mass. Kidneys and ureters: Normal. No hydronephrosis. Stomach and bowel: Unremarkable. No obstruction. No mucosal thickening. Scattered diverticula. Appendix: No evidence of appendicitis. Intraperitoneal space: There is no free air however, there is now fluid seen, small amount, extending into the pelvis. Vasculature: Unremarkable. No abdominal aortic aneurysm. Aortic calcifications. Lymph nodes: There is diffuse haziness in the mesentery more severe since the previous examination with numerous nodules and lymph nodes seen. Diffuse retroperitoneal adenopathy is identified. This is surrounding the aorta with the size similar to the previous examination given differences in technique. Urinary bladder: Unremarkable as visualized. Reproductive: Unremarkable as visualized. Bones/joints: Arthritic changes are seen in the spine. Stable sclerotic areas possibly bone islands noted within the femoral bilaterally. Soft tissues: Bilateral fat containing inguinal hernias are stable. Anterior abdominal/pelvic wall inflammatory changes are again identified of unknown etiology. IMPRESSION: 1. Suspect worsening hepatic disease given comparing a noncontrast study to a contrast study. 2. Worsening lung bases. 3. Worsening nodularity in lymph nodes within the mesentery with stable appearing retroperitoneal disease. 4. Ascites, new. PROGNOSIS: Fair to poor, given advanced cancer. may evolve if he is started on therapy. ACTIVITY: As tolerated DIET: regular DISCHARGE PLAN: Home with services DISPOSITION: Home with services DISCHARGE INSTRUCTIONS: 1. Home with services ITEMS TO FOLLOWUP ON ON OUTPATIENT: 1. Metastatic cancer DISCHARGE CONDITION: Stable TIME SPENT ON DISCHARGE: 40 minutes. Vital Signs/I&Os Vital Signs Date Time Temp Pulse Resp B/P (MAP) Pulse Ox O2 Delivery O2 Flow Rate FiO2 04/30/20 12:00 97.4 120 20 138/76 (96) 89 Nasal Cannula 2.0 I&O- Last 24 Hours up to 6 AM 04/30/20 05:59 Intake Total 2390 ml Output Total 450 ml Balance 1940 ml Laboratory Data Labs 24H Laboratory Tests 2 04/29/20 16:10: Nucleated Red Blood Cells % (auto) 0.0 04/29/20 16:43: Bedside Glucose (Misc Panel) 121H 04/29/20 20:03: Bedside Glucose (Misc Panel) 151H 04/29/20 22:46: Nucleated Red Blood Cells % (auto) 0.0 04/30/20 05:15: Nucleated Red Blood Cells % (auto) 0.0, Anion Gap 4L, Glomerular Filtration Rate > 60.0, Calcium Level 8.9 04/30/20 12:00: Bedside Glucose (Misc Panel) 125H CBC/BMP Laboratory Tests 04/29/20 16:10 04/29/20 22:46 04/30/20 05:15 FSBS Laboratory Tests Test 04/29/20 16:43 04/29/20 20:03 04/30/20 12:00 Range/Units Bedside Glucose (Misc Panel) 121 151 125 70-105 MG/DL Microbiology Microbiology 04/30/20 Gram Stain - Final, Resulted 04/30/20 Sputum Culture, Resulted Pending 04/28/20 Blood Culture - Preliminary, Resulted No growth after 24 hours . All specim... 04/28/20 Blood Culture - Preliminary, Resulted No growth after 24 hours . All specim... Discharge Medications Scheduled Ascorbic Acid (Vitamin C) 500 Mg Capsule, 500 CAP PO DAILY, (Reported) Cyanocobalamin (Vitamin B-12) (B-12) 1,000 Mcg Tablet, 1,000 MCG PO DAILY, (Reported) Glucosamine/Chondr Galvan A Sod (Cidaflex Tablet) 1 Each Tablet, 1 TAB PO DAILY, (Reported) Levofloxacin (Levofloxacin) 750 Mg Tablet, 750 MG PO DAILY, (Reported) Lisinopril (Lisinopril) 10 Mg Tablet, 10 MG PO DAILY, (Reported) Loratadine (Claritin) 10 Mg Capsule, 10 MG PO DAILY, (Reported) Lovastatin (Lovastatin) 40 Mg Tablet, 40 MG PO DAILY, (Reported) Metformin HCl (Metformin HCl) 1,000 Mg Tablet, 1,000 MG PO QHS, (Reported) Multivitamin (Multivitamins) 1 Each Capsule, 1 CAP PO DAILY, (Reported) [place]-3 Fatty Acids/Fish Oil (Fish Oil 1,000 mg Capsule) 1 Each Capsule, 1,000 MG PO DAILY, (Reported) Salmeterol/Fluticasone (Advair 500-50 Diskus) 1 Each Blst.w.dev, 1 PUFF INH BID, (Reported) Umeclidinium [place] (Incruse Ellipta) 62.5 Mcg Blst.w.dev, 1 PUFF INH DAILY, (Reported) Scheduled PRN Albuterol Sulfate (Ventolin Hfa) 18 Gm Hfa.aer.ad, 2 PUFF INH QID PRN for SOB/WHEEZING, (Reported) Allergies Coded Allergies: No Known Drug Allergies (Verified Allergy, Unknown, 04/24/20) SALOMÓN MALDONADO MD Apr 30, 2020 13:49
--- NOTE | 2020-05-01 07:48 | CR ---
DATE OF CONSULTATION: 04/29/2020 REASON FOR CONSULTATION: Rectal bleeding. BRIEF HISTORY OF PRESENT ILLNESS: Patient is a 59-year-old male who presents with rectal bleeding, significant amounts that brought him to the Emergency Room; however, his hematocrit has been stable overnight and more importantly the patient states that he had some bowel movements this morning without any bright red blood per rectum. He is on oxygen and complaining of shortness of breath. He has had some abdominal distention that has been problematic for him and more importantly his history is significant for a history of recently diagnosed cancer of undetermined etiology that is metastatic to the liver, lymph nodes and probable lung. The patient has been recently discharged for bilateral pneumonias and bilateral pleural effusions and the concern on this admission was that these may actually be metastatic or malignant pleural effusions present. In any case once again his hematocrit has been stable with this bright red blood per rectum. PAST MEDICAL AND SURGICAL HISTORY: Significant for: * History of bilateral interstitial pneumonia. * Bilateral pleural effusions. * Hypertension. * Hyperlipidemia. * History of COPD. * History of [id number]-muzzpauog diabetes mellitus. * History of questionable bladder cancer. * History of carpal tunnel surgery. * History of liver biopsy. PHYSICAL EXAMINATION: A 59-year-old who looks older than stated age. He has definite shortness of breath with activity. He does not complain of any abdominal pain, but has generalized abdominal distention. He has had significant weight loss he states. Heart: Regular, but tachycardic. Lungs: Diminished bilaterally, clear anteriorly and superiorly. Abdomen: Distended, but I almost think I feel a fluid wave. He is tympanitic in the epigastric area. Extremities: Warm and well perfused. IMPRESSION AND PLAN: Patient has evidence of probable metastatic cancer of undetermined etiology. The concern at this point is that he may have malignant pleural effusions or malignant ascites. In any case I feel that the rectal bleeding seems to be under control at this time. From a diagnostic standpoint if that is felt that I need to address, i.e., colonoscopy, I would be glad to address that once his respiratory status is stabilized/improved. Once again I would state that this seems to be a secondary issue. The other possibility obviously is that with the significant metastatic disease that he may have developed some protal hypertension issues that may contribute to his ascites as well as may be causing some hemorrhoidal bleeding. In any case once again at this time I am concerned that he has significant advanced disease and from a surgical standpoint is not an operative candidate at this time and a questionable candidate for even colonoscopy or endoscopy and with his shortness of breath I would say he is not a candidate unless he gets intubated and unfortunately with his respiratory issues may be a difficult extubation. Please contact me if you would like to re-discuss his issue or if he has any recurrence of bleeding or if you would like further evaluation. MTDD
== END 2020-04-30 16:16 | disposition home health service (06) | DRG 253 ==
LOC: M ED 13:34 → EDBD 13:34 → M ED INP 16:33 → ENRESERV 16:52 → M PCU 17:30
PROVIDERS: ADMIT Internal Medicine; ATTEND Internal Medicine
DX: K62.5 Hemorrhage of anus and rectum (principal); J90 Pleural effusion, not elsewhere classified; J96.11 Chronic respiratory failure with hypoxia; J18.9 Pneumonia, unspecified organism; C77.2 Secondary and unspecified malignant neoplasm of intra-abdominal lymph nodes; C78.00 Secondary malignant neoplasm of unspecified lung; C78.7 Secondary malignant neoplasm of liver and intrahepatic bile duct; J44.9 Chronic obstructive pulmonary disease, unspecified; I10 Essential (primary) hypertension; E11.9 Type 2 diabetes mellitus without complications; Z79.899 Other long term (current) drug therapy; Z87.891 Personal history of nicotine dependence

== ENCOUNTER 2020-05-05 14:35 | Inpatient (IN) | payer OTHER ==
[~2020-05-05] VITALS: Ht 172.7 cm; Wt 83.4 kg
[~2020-05-05 14:35] MED LIST changes: +LEVO750T13 PO; +VENTAER INH
--- NOTE | 2020-05-05 15:36 | REPVR ---
PROCEDURE INFORMATION: Exam: XR Chest, 1 View Exam date and time: 05/05/2020 3:23 PM Age: 59 years old Clinical indication: Shortness of breath; Additional info: SOB TECHNIQUE: Imaging protocol: XR of the chest Views: 1 view. COMPARISON: CR Chest, 2 view PA, Lat 04/28/2020 3:11 PM FINDINGS: Lungs: There is bibasilar lung consolidation. Pleural space: Possible bilateral pleural effusions greater on right than left. Heart/Mediastinum: Cardiomediastinal silhouette is partially obscured by the lung consolidation. Bones/joints: Unremarkable. IMPRESSION: Persistent bibasilar consolidation which is increased on the right in comparison to the prior study. Findings are most likely due to pneumonia. There may be superimposed edema. Electronically signed by: Alla Schwarz On 05/05/2020 15:36:35 PM
[2020-05-05 16:25] LABS: BASO % 0.1 % (0.0-1.0); HEMATOCRIT 43.4 % (42.0-52.0); HEMOGLOBIN 13.6 g/dl (13.5-17.5); LYMPH # 0.3 10^3/uL (1.5-5.0); MEAN CORPUSCULAR HEMOGLOBIN 28.9 pg (27.0-33.0); MEAN CORPUSCULAR HGB CONC 31.3 g/dl (32.0-36.5); MEAN CORPUSCULAR VOLUME 92.3 fl (80.0-96.0); MONO # 2.1 10^3/uL (0.0-0.8); MONO % 14.3 % (0.0-5.0); NEUTROPHILS # 12.3 10^3/uL (1.5-8.5); NEUTROPHILS % 82.9 % (36.0-66.0); PLATELET COUNT, AUTOMATED 482 10^3/uL (150-450); WHITE BLOOD COUNT 14.9 10^3/uL (4.0-10.0)
[2020-05-05 16:38] LABS: INR 1.22; PARTIAL THROMBOPLASTIN TIME 36.5 SECONDS (24.2-38.5); PROTHROMBIN TIME 15.7 SECONDS (12.5-14.3)
[2020-05-05 16:59] LABS: ALBUMIN 2.2 GM/DL (3.2-5.2); ALT/SGPT 22 U/L (12-78); BILIRUBIN,DIRECT < 0.1 MG/DL (0.0-0.2); BILIRUBIN,TOTAL 0.3 MG/DL (0.2-1.0); BLOOD UREA NITROGEN 59 MG/DL (7-18); CARBON DIOXIDE LEVEL 30 MEQ/L (21-32); CHLORIDE LEVEL 96 MEQ/L (98-107); CREATININE FOR GFR 1.42 MG/DL (0.70-1.30); GLOMERULAR FILTRATION RATE 54.3 (>56); GLUCOSE, FASTING 129 MG/DL (70-100); POTASSIUM SERUM 5.8 MEQ/L (3.5-5.1); SODIUM LEVEL 131 MEQ/L (136-145); TOTAL PROTEIN 6.2 GM/DL (6.4-8.2)
--- NOTE | 2020-05-05 18:06 | REPVR ---
PROCEDURE INFORMATION: Exam: CT Chest Without Contrast Exam date and time: 05/05/2020 5:08 PM Age: 59 years old Clinical indication: Abnormal findings; Abnormal radiologic exam of lung or chest; Additional info: ? Persistent pn on cxr TECHNIQUE: Imaging protocol: Computed tomography of the chest without contrast. 3D rendering (Not supervised by radiologist): MIP and/or 3D reconstructed images were created by the technologist. Radiation optimization: All CT scans at this facility use at least one of these dose optimization techniques: automated exposure control; mA and/or kV adjustment per patient size (includes targeted exams where dose is matched to clinical indication); or iterative reconstruction. COMPARISON: CT Chest with contrast 04/18/2020 2:20 PM FINDINGS: Lungs: See "Pleural space" finding. Pleural space: In comparison the prior study there is increased volume of both pleural effusions. There are patchy bilateral regions of lung consolidation some of which appear nodular with marked progression in the both lower lobes. Heart: No cardiomegaly or significant pericardial effusion. Aorta: Unremarkable. No aortic aneurysm. Lymph nodes: There is diffuse mediastinal and hilar lymphadenopathy with the largest node in the prevascular space measuring 2.6 cm which is similar to the prior study. Liver: The multiple low-dense hepatic lesions are less well visualized on this noncontrast study but are again seen. Bones/joints: No acute fracture. No lytic or sclerotic lesions are identified. Soft tissues: Unremarkable. IMPRESSION: 1. Increasing bilateral pulmonary opacities most likely due to pneumonia. There are also areas of nodularity throughout both upper lobes which could be due pneumonitis but could also be due to metastases. There are large associated pleural effusions. The findings have progressed in comparison to the prior CT. 2. Multiple low-dense hepatic lesions most likely due to metastatic disease. There is also mediastinal and hilar lymphadenopathy. This could be due to infection or carcinoma. Electronically signed by: Alla Schwarz On 05/05/2020 18:06:39 PM
[2020-05-05] MEDS ORDERED: cefTRIAXone SOD 2 GM in D5W MINI-BAG PLUS 50 ML IV ONE (19:00)
[2020-05-05] MEDS ORDERED: AZITHROMYCIN INJ 500 MG, VIAL MATE ADAPTER 1 EACH in D5W 250 ML IV ONE (19:00)
[2020-05-05] MEDS ORDERED: IPRATROPIUM 0.5MG/ALBUTEROL 2.5MG INH SOL UD 3ML (DUONEB) NEB PRN (21:00)
[2020-05-05] MEDS ORDERED: ACETAMINOPHEN TAB 650MG DOSE (2X325MG) PO PRN (21:15)
[2020-05-05 21:46] LABS: MAGNESIUM LEVEL 2.7 MG/DL (1.8-2.4); PHOSPHORUS LEVEL 5.8 MG/DL (2.5-4.9); URIC ACID 10.2 MG/DL (3.5-7.2)
[2020-05-05] MEDS ORDERED: VANCOMYCIN HCL 1,000 MG, VIAL MATE ADAPTER 1 EACH in D5W 250 ML IV ONE (23:15)
[2020-05-05] MEDS ORDERED: VANCOMYCIN HCL 1,200 MG in IV FLUID PLACE HOLDER 1 EA IV SCH (23:15)
[2020-05-05] MEDS ORDERED: DEXTROSE 50% 50 ML SYRINGE IV STA (23:58)
[2020-05-05] MEDS ORDERED: HumuLIN R (REGULAR) INSULIN (NovoLIN R) **100U/ML** PER UNIT IV STA (23:58)
[2020-05-06] VITALS (156 sets, daily range): BP systolic 56–137; BP diastolic 33–83; O2SAT 90–93
[2020-05-06] MEDS ORDERED: SOD POLYSTYRENE SULFONATE SUSP 15 GM/60 ML UD PO ONE
[2020-05-06] MEDS ORDERED: FUROSEMIDE 40MG/4ML VIAL (J1940) IV ONE
[2020-05-06] MEDS ORDERED: CALCIUM GLUCONATE 1,000 MG in D5W MINI-BAG PLUS 100 ML IV ONE ×2
[2020-05-06] MEDS ORDERED: PROPOFOL 1,000 MG/100 ML VIAL As Ordered ONE (00:22)
[2020-05-06] MEDS ORDERED: propofoL 200 MG/20 ML VIAL As Ordered ONE (00:22)
[2020-05-06] MEDS ORDERED: MIDAZOLAM INJ 2MG/2ML VIAL (J2250 PER 1MG) As Ordered ONE ×2 (00:24→01:00)
[2020-05-06 00:28] LABS: ABG BASE EXCESS -5.5 (-2.0-2.0); ABG HCO3 26.7 MEQ/L (22.0-26.0); ABG O2 SATURATION 98.8 % (95.0-99.0); ABG PARTIAL PRESSURE CO2 88.5 mmHg (35.0-45.0); ABG PARTIAL PRESSURE O2 151.5 mmHg (75.0-100.0); ABG TOTAL CO2 29.4 MEQ/L (22.0-29.0); ABG pH (ARTERIAL) 7.097 UNITS (7.350-7.450)
[2020-05-06] MEDS ORDERED: NOREPINEPHRINE 4 MG/4 ML AMP As Ordered ONE (00:32)
[2020-05-06] MEDS ORDERED: SODIUM BICARBONATE 8.4% INJ 50 ML SYRINGE As Ordered ONE ×2 (00:43→00:57)
[2020-05-06] MEDS ORDERED: fentaNYL 100 MCG/2 ML INJECTION (J3010) As Ordered ONE (00:47)
[2020-05-06] MEDS ORDERED: VASOPRESSIN INJ 20 UNITS in NS 499 ML IV SCH (01:00)
[2020-05-06] MEDS ORDERED: VASOPRESSIN INJ 20 UNITS/ML VIAL As Ordered ONE (01:02)
[2020-05-06] MEDS ORDERED: SODIUM BICARBONATE 8.4% INJ 50 ML SYRINGE IV STA ×2 (01:04→01:05)
[2020-05-06] MEDS ORDERED: MIDAZOLAM INJ 2MG/2ML VIAL (J2250 PER 1MG) IV STA ×2 (01:05→01:08)
[2020-05-06] MEDS ORDERED: MIDAZOLAM INJ 2MG/2ML VIAL (J2250 PER 1MG) IV PRN (01:15)
[2020-05-06] MEDS ORDERED: fentaNYL 100 MCG/2 ML INJECTION (J3010) IV PRN (01:15)
[2020-05-06 01:28] LABS: BASO % 0.2 % (0.0-1.0); HEMATOCRIT 37.6 % (42.0-52.0); HEMOGLOBIN 11.7 g/dl (13.5-17.5); LYMPH # 0.2 10^3/uL (1.5-5.0); LYMPH % 1.7 % (24.0-44.0); MEAN CORPUSCULAR HEMOGLOBIN 28.8 pg (27.0-33.0); MEAN CORPUSCULAR HGB CONC 31.1 g/dl (32.0-36.5); MEAN CORPUSCULAR VOLUME 92.6 fl (80.0-96.0); MONO # 0.8 10^3/uL (0.0-0.8); MONO % 6.3 % (0.0-5.0); NEUTROPHILS # 11.9 10^3/uL (1.5-8.5); PLATELET COUNT, AUTOMATED 462 10^3/uL (150-450); RED BLOOD COUNT 4.06 10^6/uL (4.30-6.10); WHITE BLOOD COUNT 13.1 10^3/uL (4.0-10.0)
[2020-05-06] MEDS ORDERED: REFRIGERATOR IV KEYS XX PRN (01:45)
[2020-05-06 01:57] LABS: ALBUMIN 1.6 GM/DL (3.2-5.2); ALT/SGPT 14 U/L (12-78); BILIRUBIN,TOTAL 0.2 MG/DL (0.2-1.0); BLOOD UREA NITROGEN 66 MG/DL (7-18); CALCIUM LEVEL 8.3 MG/DL (8.5-10.1); CARBON DIOXIDE LEVEL 34 MEQ/L (21-32); CHLORIDE LEVEL 97 MEQ/L (98-107); CREATININE FOR GFR 1.78 MG/DL (0.70-1.30); GLOMERULAR FILTRATION RATE 41.9 (>56); GLUCOSE, FASTING 245 MG/DL (70-100); PHOSPHORUS LEVEL 7.5 MG/DL (2.5-4.9); POTASSIUM SERUM 5.2 MEQ/L (3.5-5.1); SODIUM LEVEL 134 MEQ/L (136-145); TOTAL PROTEIN 4.8 GM/DL (6.4-8.2)
[2020-05-06 02:15] LABS: INR 1.28; PROTHROMBIN TIME 16.3 SECONDS (12.5-14.3)
[2020-05-06] MEDS: CISATRACURIUM 200 MG in NS 480 ML IV SCH ×4 (02:15→23:30)
[2020-05-06] MEDS: NOREPINEPHRINE BITARTRATE 16 MG in D5W 484 ML IV SCH ×2 (02:29→22:00)
[2020-05-06 02:32] LABS: D-DIMER QUANT 3720.44 ng/ml (<500)
[2020-05-06] MEDS: MIDAZOLAM HCL 100 MG in D5W 80 ML IV SCH (02:32)
[2020-05-06] MEDS: methylPREDNISolone 125MG 2ML VIAL IV SCH ×2 (02:42→15:10)
[2020-05-06] MEDS ORDERED: DEXTROSE 50% 50 ML SYRINGE IV PRN (03:15)
[2020-05-06] MEDS ORDERED: GLUCAGON INJ 1MG VIAL SC PRN (03:15)
[2020-05-06] MEDS ORDERED: GLUCOSE 4GM CHEW TABLET PO PRN (03:15)
[2020-05-06 03:34] LABS: NT-PRO BNP 439 PG/ML (<125); TROPONIN I < 0.02 NG/ML (< 0.10); URIC ACID 10.6 MG/DL (3.5-7.2)
[2020-05-06] MEDS: IPRATROPIUM 0.5MG/ALBUTEROL 2.5MG INH SOL UD 3ML (DUONEB) NEB SCH ×6 (03:37→23:53)
--- NOTE | 2020-05-06 03:56 | HPEPDOC ---
[facility] Medical History & Physical Date of Admission May 05, 2020 Date of Service: May 05, 2020 Attending Physician: KYLE CHARLES DO History and Physical CHIEF COMPLAINT: Shortness of breath HISTORY OF PRESENT ILLNESS: Patient is a 59-year-old male with a recent diagnosis of cancer of unknown origin with metastatic spread to the liver and lymph nodes and lung presented to the [facility] emergency Department with complaint of shortness of breath. Patient was recently discharged from [facility] for bilateral pneumonia and bilateral pleural effusions is discharged home on 4 L of oxygen nasal cannula. Patient stated that since his discharge on 04/30/2020 he had noticed increasing shortness of breath. His shortness of breath worsened significantly today leading him to present to the [facility] emergency Department. In the ER the patient received Rocephin and Zithromax. He was noted to be tachycardic with an elevated white blood cell count. He received a chest CT which demonstrated increasing bilateral pleural opacities possibly pneumonia as well as worsening bilateral pleural effusions. Patient was hypoxic and was placed on 15 L nasal cannula. Additional laboratory studies were obtained and the patient was found to have hyperkalemia hyperuricemia hyperphosphatemia suggesting possible tumor lysis syndrome. Nephrology was consulted with recommendations to treat hyperkalemia and consultation in the AM. The patient was subsequently admitted to the ICU On presentation to the ICU the patient became apneic. An oral airway was placed by nursing staff. Anesthesia was called for emergency intubation. Patient became severely hypotensive. Peripheral Levophed was started at 10mcg. Pulmonary/Critical Care medicine was consulted for line placement and ventilator management. PAST MEDICAL HISTORY: 1. Cancer of Unknown primary with metastasis to Liver, lung, and lymph 2. Bilateral malignant pleural effusions 3. Hypertension 4. Hyperlipidemia 5. COPD 6. Diabetes Mellitus Type 2 PAST SURGICAL HISTORY: 1. Left hand Carpal tunnel surgery 2. Liver Biopsy 3. Colonoscopy 2019 SOCIAL HISTORY: Patient lives with his friend. 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 He is a former smoker. He quit 4 years ago. He smoked 1 ppd since the age of 16. He denies any IV or illicit drug use now or in the past FAMILY HISTORY: Patient denies any known family history of cancer ALLERGIES: Please see below. REVIEW OF SYSTEMS: CONSTITUTIONAL: Admits to night-sweats. Denies unintentional weight loss or weight gain. HEENT: Denies dysphagia. Denies changes in vision. Denies headache CARDIOVASCULAR: Denies chest pain. Denies palpitations RESPIRATORY: Admits to shortness of breath. Denies cough. Denies sputum production GASTROINTESTINAL: Admits to some abdominal pain and swelling. Admits to bloody stool. GENITOURINARY: Denies difficulty with urination. Denies pain on urination SKIN: Denies rashes. MUSCULOSKELETAL: Denies muscle weakness NEUROLOGICAL: Denies changes in speech or gait. PSYCHIATRIC: Admits to feeling depressed ENDOCRINE: Denies heat intolerance or cold intolerance HEMATOLOGIC/LYMPHATIC: Denies history of easy bruising or bleeding. Denies history of DVT or PE HOME MEDICATIONS: Please see below. PHYSICAL EXAMINATION: VITAL SIGNS: Temperature 98.1, pulse 116, respiratory rate 20, blood pressure 115/57, pulse oximetry 89% on 15L NC GENERAL APPEARANCE: Patient is awake, alert, and oriented. He is ill appearing with conversational dyspnea. He is slightly lethargic HEENT: Atraumatic, normocephalic. eyes are nonicteric. Trachea is midline. Mucous membranes are pink and moist. Dentures are in place. No oral ulcers or lesions CARDIOVASCULAR: Normal S1, S2. Tachycardic rate with regular rhythm. No clicks, rubs, or murmurs LUNGS: Decreased breath sounds throughout more so in the bases bilaterally. Mild scattered wheezing and rhonchi. Decreased tactile fremitus. ABDOMEN: Soft, distended. Nontender. No rebound tenderness or guarding. Normoactive bowel sounds throughout EXTREMITIES: 3+ pitting edema in bilateral lower extremities. Full and equal pulses in bilateral upper and lower extremities NEUROLOGICAL: No focal neurological deficits PSYCHIATRIC: Mood and affect appear appropriate LABORATORY DATA: See below. IMAGING: PROCEDURE INFORMATION: Exam: XR Chest, 1 View Exam date and time: 05/05/2020 3:23 PM Age: 59 years old Clinical indication: Shortness of breath; Additional info: SOB TECHNIQUE: Imaging protocol: XR of the chest Views: 1 view. COMPARISON: CR Chest, 2 view PA, Lat 04/28/2020 3:11 PM FINDINGS: Lungs: There is bibasilar lung consolidation. Pleural space: Possible bilateral pleural effusions greater on right than left. Heart/Mediastinum: Cardiomediastinal silhouette is partially obscured by the lung consolidation. Bones/joints: Unremarkable. IMPRESSION: Persistent bibasilar consolidation which is increased on the right in comparison to the prior study. Findings are most likely due to pneumonia. There may be superimposed edema. Electronically signed by: Alla Schwarz On 05/05/2020 15:36:35 PM PROCEDURE INFORMATION: Exam: CT Chest Without Contrast Exam date and time: 05/05/2020 5:08 PM Age: 59 years old Clinical indication: Abnormal findings; Abnormal radiologic exam of lung or chest; Additional info: ? Persistent pn on cxr TECHNIQUE: Imaging protocol: Computed tomography of the chest without contrast. 3D rendering (Not supervised by radiologist): MIP and/or 3D reconstructed images were created by the technologist. Radiation optimization: All CT scans at this facility use at least one of these dose optimization techniques: automated exposure control; mA and/or kV adjustment per patient size (includes targeted exams where dose is matched to clinical indication); or iterative reconstruction. COMPARISON: CT Chest with contrast 04/18/2020 2:20 PM FINDINGS: Lungs: See "Pleural space" finding. Pleural space: In comparison the prior study there is increased volume of both pleural effusions. There are patchy bilateral regions of lung consolidation some of which appear nodular with marked progression in the both lower lobes. Heart: No cardiomegaly or significant pericardial effusion. Aorta: Unremarkable. No aortic aneurysm. Lymph nodes: There is diffuse mediastinal and hilar lymphadenopathy with the largest node in the prevascular space measuring 2.6 cm which is similar to the prior study. Liver: The multiple low-dense hepatic lesions are less well visualized on this noncontrast study but are again seen. Bones/joints: No acute fracture. No lytic or sclerotic lesions are identified. Soft tissues: Unremarkable. IMPRESSION: 1. Increasing bilateral pulmonary opacities most likely due to pneumonia. There are also areas of nodularity throughout both upper lobes which could be due pneumonitis but could also be due to metastases. There are large associated pleural effusions. The findings have progressed in comparison to the prior CT. 2. Multiple low-dense hepatic lesions most likely due to metastatic disease. There is also mediastinal and hilar lymphadenopathy. This could be due to infection or carcinoma. Electronically signed by: Alla Schwarz On 05/05/2020 18:06:39 PM MICROBIOLOGY: Please see below. ASSESSMENT: Patienti s a 59 year old male with widely metastatic cancer of unknown primary who presented to [facility] with increased shortness of breath. Patient was found to have worsening bilateral pleural effusions and bilateral opacities compatible with possible pneumonia vs worsening tumor/lymphangitic spread. . PLAN: 1. Acute Hypoxic/Hypercapnic respiratory failure multifactorial 2/2 to pneumonia and metastatic cancer -Patient presented with increased shortness of breath requiring 15L NC. CT demonstrating worsening of pleural effusion and bilateral opacities.Hypoxia and SOB is likely multifactorial to possible lymphangitic carcinomatosis with overlying malignant effusions and pneumonia. -Conversation with patient at bedside in ED in which he states that he would like to be DNR with Trial Intubation. On transport to the ICU the patient became apneic. Anesthesia was called and patient was subsequently intubated. He progressively became hypotensive and Pulmonary/ICU was consulted for line placement. Patient was started on Levophed 10mcg peripherally. - Cefepime and Vancomycin for coverage of healthcare associated pneumonia given patients recent hospitalization 2. Sepsis w/ Septic Shock -Patient was tachycardic with elevated WBC. He developed profound hypotension requiring max dose Levophed and vasopressin. Likely source is pneumonia. Patient currently receiving Vancomycin and Cefepime will continue -IV solumedrol 3. KELSY -Patient presented with KELSY possibly secondary to tumor lysis syndrome. Currently appears volume overloaded. Patient has become hypotensive and renal function will likely further decline in the preceding days. 4. Possible Tumor Lysis Syndrome -Patient presenting with hyperkalemia, hyperphosphatemia, and hyperuricemia. He has no history of chemotherapy. However, possible spontaneous tumor lysis from high tumor burden. Case was discussed with Nephrology. Patient has declined and given hypotension requiring pressors he will likely not tolerate lasix. -Will continue to monitor BMP, uric acid, phosphate 5. Diabetes Type II -sliding scale 6. Nutrition -Patient currently NPO 7. GI prophylaxis -Protonix 8. DVT Prophylaxis -Heparin SQ Disposition: Patients overall prognosis is very poor. Patient has changed his DNR/DNI status to DNR with trial intubation. He has subsequently declined and is currently intubated with mechanical ventilation. Patients life partner Paris was contacted and updated on the patients condition. Patient has been seen by Oncology, Dr. Lopez, on 04/26/2020 who has stated that the patients cancer is terminal and recommended palliative/hospice care. Family meeting with patients health care proxy to be had with primary team in the AM Vital Signs Vital Signs Date Time Temp Pulse Resp B/P (MAP) Pulse Ox O2 Delivery O2 Flow Rate FiO2 05/06/20 00:20 106 28 83 100 05/05/20 23:31 High Flow Cannula 15.0 05/05/20 23:30 131/62 (85) 05/05/20 21:09 98.1 Laboratory Data Labs 24H Laboratory Tests 2 05/05/20 15:22: POC pH (Misc Panel) 7.347L, POC Base Excess (Misc Panel) 0.0, POC Saturated Percent O2 (Misc) 99H, POC pO2 (Misc Panel) 132.0H, POC pCO2 (Misc Panel) 46.0H, POC HCO3 (Misc Panel) 25.2, POC Total CO2 (Misc Panel) 27.0 05/05/20 16:01: Immature Granulocyte % (Auto) 0.7, Neutrophils (%) (Auto) 82.9H, Lymphocytes (%) (Auto) 2.0L, Monocytes (%) (Auto) 14.3H, Eosinophils (%) (Auto) 0.0, Basophils (%) (Auto) 0.1, Neutrophils # (Auto) 12.3H, Lymphocytes # (Auto) 0.3L, Monocytes # (Auto) 2.1H, Eosinophils # (Auto) 0.0, Basophils # (Auto) 0.0, Nucleated Red Blood Cells % (auto) 0.0, Prothrombin Time 15.7H, Prothromb Time International Ratio 1.22, Activated Partial Thromboplast Time 36.5, Anion Gap 5L, Glomerular Filtration Rate 54.3L, Uric Acid 10.2H, Calcium Level 9.0, Phosphorus Level 5.8H, Magnesium Level 2.7H, Total Bilirubin 0.3, Direct Bilirubin < 0.1, Aspartate Amino Transf (AST/SGOT) 22, Alanine Aminotransferase (ALT/SGPT) 22, Alkaline Phosphatase 71, Total Protein 6.2L, Albumin 2.2L, Albumin/Globulin Ratio 0.6 05/06/20 00:20: Blood Gas Bicarbonate Standard 20.0L, Arterial Blood pH 7.097*L, Arterial Blood Partial Pressure CO2 88.5*H, Arterial Blood Partial Pressure O2 151.5H, Arterial Blood Total CO2 29.4H, Arterial Blood HCO3 26.7H, Arterial Blood Base Excess - 5.5L, Arterial Blood Oxygen Saturation 98.8 CBC/BMP Laboratory Tests 05/05/20 16:01 Home Medications Scheduled Ascorbic Acid (Vitamin C) 500 Mg Capsule, 500 CAP PO DAILY Cyanocobalamin (Vitamin B-12) (B-12) 1,000 Mcg Tablet, 1,000 MCG PO DAILY Glucosamine/Chondr Galvan A Sod (Cidaflex Tablet) 1 Each Tablet, 1 TAB PO DAILY Levofloxacin (Levofloxacin) 750 Mg Tablet, 750 MG PO DAILY Lisinopril (Lisinopril) 10 Mg Tablet, 10 MG PO DAILY Loratadine (Claritin) 10 Mg Capsule, 10 MG PO DAILY Lovastatin (Lovastatin) 40 Mg Tablet, 40 MG PO DAILY Metformin HCl (Metformin HCl) 1,000 Mg Tablet, 1,000 MG PO QHS Multivitamin (Multivitamins) 1 Each Capsule, 1 CAP PO DAILY Spearfish-3 Fatty Acids/Fish Oil (Fish Oil 1,000 mg Capsule) 1 Each Capsule, 1,000 MG PO DAILY Salmeterol/Fluticasone (Advair 500-50 Diskus) 1 Each Blst.w.dev, 1 PUFF INH BID Umeclidinium [place] (Incruse Ellipta) 62.5 Mcg Blst.w.dev, 1 PUFF INH DAILY Scheduled PRN Albuterol Sulfate (Ventolin Hfa) 18 Gm Hfa.aer.ad, 2 PUFF INH QID PRN for SOB/WHEEZING Allergies Coded Allergies: No Known Drug Allergies (Verified Allergy, Unknown, 04/24/20) A-FIB/CHADSVASC A-FIB History Current/History of A-Fib/PAF?: No CARIDAD PEDROZA DO May 06, 2020 01:31
[2020-05-06 04:00] LABS: ABG BASE EXCESS 1.9 (-2.0-2.0); ABG HCO3 25.1 MEQ/L (22.0-26.0); ABG O2 SATURATION 97.6 % (95.0-99.0); ABG STANDARD HCO3 26.1 MEQ/L (22.0-26.0); ABG TOTAL CO2 26.1 MEQ/L (22.0-29.0); ABG pH (ARTERIAL) 7.473 UNITS (7.350-7.450)
--- NOTE | 2020-05-06 04:27 | REPVR ---
PROCEDURE INFORMATION: Exam: XR Chest, 1 View Exam date and time: 05/06/2020 1:21 AM Age: 59 years old Clinical indication: Device placement; Ett placement (vent status); Additional info: Post intubation TECHNIQUE: Imaging protocol: XR of the chest Views: 1 view. COMPARISON: 1. CT Chest without contrast 05/05/2020 5:29 PM 2. CR - Chest, 1 view 05/05/2020 3:17:58 PM FINDINGS: Tubes, catheters and devices: There is an endotracheal tube in appropriate position. The tip of the tube is located approximately 6 cm above the tyson. An NG tube is present and extends below the diaphragm. The tip is not included in the [id number]. Lungs: There is fairly dense airspace disease in the mid and lower lung zones bilaterally, corresponding with the findings on the prior CT scan. There is worsening of the parenchymal opacity of the lungs compared to the prior chest x-ray. Pleural space: There are small bilateral pleural effusions, right larger than left, grossly unchanged. No pneumothorax is seen. Heart/Mediastinum: The heart size is difficult to assess due to the bilateral parenchymal opacities, but appears grossly unchanged. Bones/joints: Unremarkable. IMPRESSION: 1. Endotracheal tube appropriately position. NG tube extending at least as far as the stomach. 2. Basilar predominant airspace disease, worse than on the prior chest x-ray. 3. Bilateral pleural effusions, right larger than left, grossly unchanged. Electronically signed by: Andria Pavon On 05/06/2020 04:27:52 AM
[2020-05-06 06:15] LABS: ABG BASE EXCESS 1.5 (-2.0-2.0); ABG HCO3 24.8 MEQ/L (22.0-26.0); ABG O2 SATURATION 96.4 % (95.0-99.0); ABG PARTIAL PRESSURE CO2 35.2 mmHg (35.0-45.0); ABG PARTIAL PRESSURE O2 78.2 mmHg (75.0-100.0); ABG STANDARD HCO3 25.8 MEQ/L (22.0-26.0); ABG TOTAL CO2 25.9 MEQ/L (22.0-29.0); ABG pH (ARTERIAL) 7.466 UNITS (7.350-7.450)
[2020-05-06] MEDS: HumaLOG INSULIN (NovoLOG) PER UNIT SC SCH ×4 (06:31→23:55)
[2020-05-06] MEDS: HEPARIN SOD (PORCINE) 5000UNITS/ML 1ML VIAL/SYRINGE SQ SCH ×3 (06:31→21:37)
[2020-05-06] MEDS: VANCOMYCIN HCL 1,000 MG, VIAL MATE ADAPTER 1 EACH in D5W 250 ML IV SCH ×2 (06:32→18:06)
[2020-05-06 07:16] LABS: BLOOD UREA NITROGEN 65 MG/DL (7-18); CALCIUM LEVEL 8.6 MG/DL (8.5-10.1); CARBON DIOXIDE LEVEL 29 MEQ/L (21-32); CHLORIDE LEVEL 98 MEQ/L (98-107); CREATININE FOR GFR 1.47 MG/DL (0.70-1.30); GLOMERULAR FILTRATION RATE 52.2 (>56); GLUCOSE, FASTING 205 MG/DL (70-100); MAGNESIUM LEVEL 2.5 MG/DL (1.8-2.4); PHOSPHORUS LEVEL 3.4 MG/DL (2.5-4.9); SODIUM LEVEL 133 MEQ/L (136-145)
[2020-05-06 07:18] LABS: BASO % 0.1 % (0.0-1.0); HEMATOCRIT 39.7 % (42.0-52.0); HEMOGLOBIN 12.8 g/dl (13.5-17.5); LYMPH # 0.3 10^3/uL (1.5-5.0); LYMPH % 2.1 % (24.0-44.0); MEAN CORPUSCULAR HGB CONC 32.2 g/dl (32.0-36.5); MEAN CORPUSCULAR VOLUME 89.8 fl (80.0-96.0); MONO # 1.1 10^3/uL (0.0-0.8); MONO % 8.2 % (0.0-5.0); NEUTROPHILS % 88.9 % (36.0-66.0); PLATELET COUNT, AUTOMATED 503 10^3/uL (150-450); RED BLOOD COUNT 4.42 10^6/uL (4.30-6.10); WHITE BLOOD COUNT 13.5 10^3/uL (4.0-10.0)
[2020-05-06] MEDS: CEFEPIME HCL 2 GM in D5W MINI-BAG PLUS 50 ML IV SCH ×2 (07:50→20:13)
--- NOTE | 2020-05-06 08:25 | ECGEPIP ---
[facility] - ED Test Date: 2020-05-05 Pat Name: TAHIRA BLEVINS Department: Room: [place] [address] Gender: Male Financial Investigator: KASANDRA : 1960 Requested By: Zi Cortes Order Number: [id number] Reading MD: Zi Madrid Measurements Intervals [place] Rate: 116 P: 50 AK: 140 QRS: 13 QRSD: 97 T: 50 QT: 310 QTc: 432 Interpretive Statements SINUS TACHYCARDIA POSSIBLE ANTERIOR MYOCARDIAL INFARCTION, OF INDETERMINATE AGE SIMILAR TO 04/28/20 Electronically Signed on 05-06-2020 8:24:42 EDT by Zi Madrid
[2020-05-06] MEDS: CHLORHEXIDINE GLUCONATE 0.12 % 15ML UDC (PERIDEX ORAL RINSE) MT SCH ×2 (10:00→20:38)
[2020-05-06] MEDS: PANTOPRAZOLE 40MG VIAL (C9113 PER 1) IV SCH (10:00)
--- NOTE | 2020-05-06 10:16 | RO ---
DATE OF OPERATION: 05/06/2020 PROCEDURE: Femoral central line. INDICATION: Central venous access for vasopressor administration. PREPROCEDURE DIAGNOSIS: Shock. POSTPROCEDURE DIAGNOSIS: Shock. ATTENDING PHYSICIAN: Dr. Davey. CONSENT: Due to the emergent nature of the procedure, the consent was implied. PROCEDURE SUMMARY: A Central Line Insertion Practices Form was completed by an independent observer. A time-out was performed. Full sterile technique was maintained throughout the procedure including surgical cap, mask with protective eyewear, sterile ground, and sterile gloves. The right inguinal region was prepped using chlorhexidine scrub and draped in sterile fashion using a full drape. The femoral pulse was identified. Anesthesia was achieved using 1% Lidocaine. Palpating the femoral pulse throughout the procedure, the introducer needle was inserted medial to the femoral artery inferior to the inguinal crease and into the femoral vein. Venous blood was withdrawn. The syringe was removed and a guidewire was advanced into the introducer needle. The introducer needle was removed over the guidewire. A small incision was made to the skin surface with a scalpel and a dilator was exchanged over the guidewire. After appropriate dilation was obtained, the dilator was exchanged over the wire for a triple lumen central venous catheter. The wire was removed and a catheter was sutured in place. A sterile chlorhexidine-impregnated dressing was placed over the catheter at the insertion site. The patient tolerated the procedure without any hemodynamic compromise. At the time of procedure completion, all ports were aspirated and flushed properly. Estimated blood loss was less than 2 mL. [facility]
[2020-05-06] MEDS: fentaNYL CITRATE 1,000 MCG in NS 80 ML IV SCH (10:46)
--- NOTE | 2020-05-06 10:49 | CR ---
CRITICAL CARE CONSULTATION DATE OF CONSULTATION: 05/06/2020 HISTORY OF PRESENT ILLNESS: Mr. Woodall is a 59-year-old male with a past medical history of chronic obstructive pulmonary disease (COPD), hypertension, hyperlipidemia, diabetes, recently diagnosed with metastatic cancer who presented with complaints of shortness of breath. The history is obtained from the chart as patient was intubated on my examination and unable to provide a history. Patient reportedly had recent admission with rectal bleeding. He was also admitted recently with bilateral pleural effusions and pneumonia and discharged about a week ago. He had also had a previous admission prior to that for possible pneumonia as well and was on nasal cannula oxygen at home. During his most recent admission, he was seen by palliative care and hospice, however patient had wanted to continue following with his oncologist with palliative chemotherapy. He did have a previous Medical Orders for Life-Sustaining Treatment (MOLST) in place which stated he was a DO NOT RESUSCITATE/do not intubate, however on this admission he reportedly reversed the do not intubate and stated that he would want a trial of intubation for only a few days but was a DO NOT RESUSCITATE. As per emergency department (ED), patient had also reported complaints of abdominal distention and new pedal edema. In the emergency department, patient was ordered for Lasix which he did not receive. He was also given antibiotics 2 grams ceftriaxone one dose. He was noted to be in worsening hypoxic respiratory failure and was requiring high flow nasal cannula placement. He was brought to the intensive care unit (ICU) and upon arrival to the ICU patient was obtunded with agonal breathing. He was intubated by anesthesia with reportedly no medications required for induction. Post- intubation patient was hypotensive requiring peripheral Levophed. I placed a right femoral triple lumen and patient was switched to Levophed through his central line and started on vasopressor as well. He was also given broad- spectrum antibiotics with vancomycin and cefepime. Patient was also hyperkalemic and was given insulin D50 as well as calcium gluconate and Kayexalate. Post-intubation patient was also given two amps of bicarbonate. PAST MEDICAL AND SURGICAL HISTORY: 1. History of metastatic cancer diagnosed after a liver biopsy with likely spread to the lungs as well as intraabdominal lymph nodes, unknown primary. 2. Hypertension. 3. Hyperlipidemia. 4. COPD. 5. Hypoxemic respiratory failure on nasal cannula oxygen supplementation. 6. History of gastrointestinal (GI) bleed. 7. History of pleural effusions. 8. Left carpal tunnel surgery. 9. Liver biopsy. SOCIAL HISTORY: As per chart as patient is unable to provide a history. He is a former smoker, was half a pack a day for many years, quit 4 years ago. Patient is single, has three children. Denies any history of alcohol or drug use. 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 FAMILY HISTORY: Father with a history of mesothelioma. Siblings with a history of thyroid problems. Children with a history of asthma. HOME MEDICATIONS: - vitamin C - vitamin B12 - Levaquin - lisinopril - Claritin - lovastatin - metformin - multivitamin - fish oil - Advair - Incruse - Flovent as needed ALLERGIES: No known drug allergies. Vital signs: Temperature 96.4, pulse 106, respirations 28, blood pressure post- intubation was 80s/40s, oxygen saturation 94% on 90% FiO2. General: Patient is intubated and sedated. He is responsive to painful stimuli but not following commands or opening his eyes. He appears intermittently agitated. HEENT: Normocephalic, atraumatic. Pupils are small but sluggishly reactive to light bilaterally. Face appears somewhat plethoric. Neck is supple, trachea is midline. Cardiac: Tachycardic, regular rate and rhythm, normal S1, S2. Unable to clearly appreciate any murmurs. Pulmonary: Coarse ventilated breath sounds bilaterally with diminished breath sounds at the bases and some rhonchi. Abdomen: Soft, mildly distended, does not appear tender to palpation. Extremities: There is +2 pitting edema in the bilateral lower extremities. Extremities are cool to the touch. LABORATORIES: WBC 14.9, hemoglobin 13.6, platelets are 482. Chemistry: Sodium is 131, potassium is 5.8, chloride is 96, bicarbonate is 30, BUN 59, creatinine is 1.42, glucose 129. Uric acid was 10.2, phosphorous 5.8, magnesium 2.7, AST/ALT within normal limits, albumin is 2.2. INR is 1.22. ABG pre-intubation: pH 7.097, pCO2 of 88.5, pO2 of 151.5. IMAGING: CT chest shows some respiratory motion artifact. There is bilateral areas of nodularity and what appears to be metastatic nodules and lymphangitic spread in the upper lobes. In the lower lobes there are worsening consolidation with some air bronchograms bilaterally as well as moderate to large pleural effusions right slightly greater than left which appear worse compared to the previous CT. There is mediastinal and hilar adenopathy. There are multiple low dose hepatic lesions seen. ASSESSMENT AND PLAN: Mr. Woodall is a 59-year-old male with a past medical history of hypertension, chronic obstructive pulmonary disease (COPD), hyperlipidemia, recently diagnosed metastatic cancer with unknown primary after a liver biopsy with a history of recent admissions for pneumonia and pleural effusion as well as recent gastrointestinal (GI) bleed. Patient was just recently discharged from the hospital a week ago where he had presented with shortness of breath and dyspnea and was treated for pneumonia and was also noted to have bilateral effusions at that time. At his previous admission, patient had a Medical Orders for Life- Sustaining Treatment (MOLST) which had stated he was a DO NOT RESUSCITATE/do not intubate and he was evaluated by palliative care and hospice but at the time he had wanted to continue with palliative chemotherapy with his oncologist. On this admission, patient presented with shortness of breath, increased abdominal distention, and lower extremity edema. He had a new MOLST form updated which stated he was a DO NOT RESUSCITATE with a trial of intubation. Patient was noted to have worsening hypoxic respiratory failure requiring increasing oxygen requirements. He was placed on high flow nasal cannula oxygen and upon arrival to the intensive care unit (ICU) patient was obtunded and agonally breathing. His arterial blood gas (ABG) showed acute hypercarbic respiratory failure and patient was intubated by anesthesia. Post-intubation, patient was hypotensive requiring Levophed and he had placement of a right femoral central line emergently for vasopressor admission. Neurologic: Patient is intubated and sedated. He was obtunded likely in the setting of his hypercarbic respiratory failure initially. - Continue with Versed drip at 2 mg/hour and with Fentanyl as needed for analgesia. Given patients oxygen requirements and vent dissynchrony, he will be placed on Nimbex drip for paralytic. - Will continue monitoring [id number] as per ICU protocol while on the paralytic. Cardiac: Patient was hypotensive post-intubation. He does have evidence of leukocytosis and his CT did show worsening opacities consistent with possible pneumonia. Patient is in shock, likely septic shock, requiring vasopressor administration. He also has evidence of increased lower extremity edema and pleural effusions and there is a component as well of possible pulmonary edema. He was ordered Lasix which he did not receive and it was on hold now due to his hypotension. - Will continue patient with Levophed and Vasopressin was added to titrate and maintain a mean arterial pressure (MAP) above 65. - Will check a brain natriuretic peptide (BNP) and cardiac enzymes. - Will get echocardiogram. - Will hold his antihypertensive medications due to his hypotension and shock. - Will check a lactic acid level and continue to trend. - Patient will be given IV steroids partially for stress-dosed steroids and also for his respiratory status. Pulmonary: History of chronic obstructive pulmonary disease (COPD) and metastatic cancer with likely metastases to the lungs. His CT chest shows evidence of what appears to be metastatic nodules and lymphangitic spread with worsening consolidation with air bronchograms in the lower lobe suspicious for pneumonia. There is bilateral effusions which may be in the setting of his malignancy, but also with his increased lower extremity edema may be due to congestive heart failure (CHF). Patient with worsening hypoxemic respiratory failure and acute hypercarbic respiratory failure. He is intubated now and on mechanical ventilation. - Patient is requiring high amounts of oxygen support. He is currently on volume control with settings of 470/28/90 and 10. Would increase his positive end-expiratory pressure (PEEP) if his blood pressure tolerates but he has been requiring high doses of vasopressors as well. Will get a repeat arterial blood gas (ABG) once intubated. - Given patients FiO2 requirements and the vent to synchrony he will be started on Nimbex for paralytic. His plateau pressures are being monitored and they are less than 30 now. He does have elevated peak pressures. Will therefore start him on nebulized bronchodilators as well as Solu-Medrol 60 mg every 12 hours. - Continue with vent bundle care with chlorhexidine mouthwash and head of bed elevation. - Continue with daily chest x-rays and arterial blood gases (ABGs) while intubated. - Will continue to wean down FiO2 as tolerated and will make additional adjustments to his ventilator settings based on his repeat arterial blood gas (ABG). - Will continue with broad-spectrum antibiotics with vancomycin and cefepime given his recent hospitalization. Will check a sputum culture, blood cultures, as well as a urinalysis with reflex urine culture. - Will check a procalcitonin to locksmith helper in deescalation of antibiotics. Gastrointestinal: Patient with a recent history of gastrointestinal (GI) bleed with a history of bright red blood per rectum which had resolved without need of any invasive procedures. He did have some minimal bright red blood per rectum on this admission but his hemoglobin and hematocrit has been stable so far. - Will continue monitoring hemoglobin and hematocrit and transfuse as needed. Will get a type and screen. - Orogastric (OG) tube is in place to low wall intermittent suction. - Patient has a history of liver metastases. Will continue to monitor his liver function. Renal: Patient with acute kidney injury (KELSY) as well as hyperkalemia on admission. He also had elevated uric acid and phosphorous likely in the setting of his malignancy. Will check labs to monitor for spontaneous tumor lysis. Given his fluid overload however he is unable to get any IV fluids at this time. - Appreciate renal consult and recommendations. He has a Dale catheter in place and we are monitoring his intake and output. If he has worsening renal function and oliguria or anuria, then he may potentially require dialysis if within his goals of care given his poor overall prognosis - Patient was given medications for his hyperkalemia. Will continue to monitor his electrolytes. - History of diabetes. Will continue with fingerstick glucose every 6 hours with sliding scale coverage. Deep venous thrombosis prophylaxis: Heparin. Gastrointestinal prophylaxis: Protonix. CODE STATUS: DO NOT RESUSCITATE, trial of intubation. Total critical care time spent not including procedures approximately 1 hour and 50 minutes. MTDD
[2020-05-06] MEDS ORDERED: fentaNYL 100 MCG/2 ML INJECTION (J3010) IV ONE (11:45)
[2020-05-06 12:26] LABS: CK-MB VALUE MASS 1.6 NG/ML (<3.6); CPK CREATINE PHOSPHOKINASE 70 U/L (39-308); LDH LACTATE DEHYDROGENASE 150 U/L (87-241); MB/CK RELATIVE INDEX 2.29 (< OR =4); TROPONIN I < 0.02 NG/ML (< 0.10); URIC ACID 10.8 MG/DL (3.5-7.2)
[2020-05-06] MEDS: allopurinoL 100 MG TAB NG SCH ×2 (15:09→21:38)
--- NOTE | 2020-05-06 15:41 | IPNPDOC ---
Date Seen The patient was seen on 05/06/20. Progress Note SUBJECTIVE: Up to 90-95% on FiO2 on ventilator, HR 140's. Fentanyl added with HR improved some to 120. Notified both [place] and Tawnya Mello (both listed as HCP)- Tawnya, patient's sister would like to be the one who is updated from now on. Cr slightly improved. Increased levophed gtt. OBJECTIVE PHYSICAL EXAMINATION: VITAL SIGNS: Please see below GENERAL APPEARANCE: Resting in bed, slightly diaphoretic. No responsive to painful or loud stimuli HEENT: Intubated, Atraumatic, normocephalic. eyes are nonicteric. Trachea is midline. Mucous membranes are pink and moist. CARDIOVASCULAR: Normal S1, S2. Tachycardic, sinus. No clicks, rubs, or murmurs LUNGS: Decreased breath sounds throughout more so in the bases bilaterally. No rhonchi, rales. ABDOMEN: Distended, tympanicder. Normoactive bowel sounds throughout : faye catheter in place EXTREMITIES: Right groin- right fem line, 3+ pitting edema in bilateral lower extremities. Full and equal pulses in bilateral upper and lower extremities NEUROLOGICAL: Unable to assess CN, sedated with versed pupils dilated LABORATORY/MICROBIOLOGY: BCx pending Sputum Cx pending IMAGING: CXR: 1.Endotracheal tube appropriately position. NG tube extending at least as far as the stomach. 2. Basilar predominant airspace disease, worse than on the prior chest x-ray. 3. Bilateral pleural effusions, right larger than left, grossly unchanged. ASSESSMENT: Patient is a 59 year old male with widely metastatic cancer of unknown primary who presented to [facility] with increased shortness of breath. Patient was found to have tumor lysis syndrome, worsening bilateral pleural effusions and bilateral opacities compatible with pneumonia, sepsis vs worsening tumor/lymphangitic spread. PLAN: 1. Acute Hypoxic/Hypercapnic respiratory failure multifactorial 2/2 to pneumonia, bilateral plueural effusions (cannot r/o malignant), sepsis and metastatic cancer -Increased FiO2 requirement to 95% this afternoon, intubated with not much improvement since admission. -Remains on levophed, vasopressin stopped -Repeat CXR above -Cefepime and Vancomycin for coverage of healthcare associated pneumonia given patients recent hospitalization. Methylprednisolone. -Will diurese if able, grossly fluid overloaded. -Overall poor prognosis -Versed, fentanyl for sedation -Pulmonary/CC consulted 2. Sepsis w/ Septic Shock -Patient tachycardic with elevated WBC. LA slightly improved -C/w treatment above. 3. KELSY poss 2/2 to tumor lysis syndrome - Slightly improved Cr -not candidate for dialysis per nephrology -Allopurinol -F/u daily labs 4.Tumor Lysis Syndrome -Patient presenting with hyperkalemia, hyperphosphatemia, and hyperuricemia. -He has no history of chemotherapy. However, possible spontaneous tumor lysis from high tumor burden. Case was discussed with Nephrology. -Will continue to monitor BMP, uric acid, phosphate -Allopurinol -nephro following 5. Diabetes Type II -NPO -sliding scale 6. GI prophylaxis -Protonix 7. DVT Prophylaxis -Heparin SQ Disposition: Patients overall prognosis is very poor. Discussed patient's status with his sister, who will be in tonight to discuss plans for care going forward. VS, I&O, 24H, Fishbone Vital Signs/I&O Vital Signs Date Time Temp Pulse Resp B/P (MAP) Pulse Ox O2 Delivery O2 Flow Rate FiO2 05/06/20 15:27 93 Ventilator 85 05/06/20 15:27 127 25 05/06/20 12:45 73/47 (56) 05/06/20 12:00 97.0 05/06/20 01:30 100.0 I&O- Last 24 Hours up to 6 AM 05/06/20 06:00 Intake Total 1751 ml Output Total 600 ml Balance 1151 ml Laboratory Data 24H LABS Laboratory Tests 2 05/05/20 16:01: Immature Granulocyte % (Auto) 0.7, Neutrophils (%) (Auto) 82.9H, Lymphocytes (%) (Auto) 2.0L, Monocytes (%) (Auto) 14.3H, Eosinophils (%) (Auto) 0.0, Basophils (%) (Auto) 0.1, Neutrophils # (Auto) 12.3H, Lymphocytes # (Auto) 0.3L, Monocytes # (Auto) 2.1H, Eosinophils # (Auto) 0.0, Basophils # (Auto) 0.0, Nucleated Red Blood Cells % (auto) 0.0, Prothrombin Time 15.7H, Prothromb Time International Ratio 1.22, Activated Partial Thromboplast Time 36.5, Anion Gap 5L, Glomerular Filtration Rate 54.3L, Uric Acid 10.2H, Calcium Level 9.0, Phosphorus Level 5.8H, Magnesium Level 2.7H, Total Bilirubin 0.3, Direct Bilirubin < 0.1, Aspartate Amino Transf (AST/SGOT) 22, Alanine Aminotransferase (ALT/SGPT) 22, Alkaline Phosphatase 71, Total Protein 6.2L, Albumin 2.2L, Albumin/Globulin Ratio 0.6 05/06/20 00:20: Blood Gas Bicarbonate Standard 20.0L, Arterial Blood pH 7.097*L, Arterial Blood Partial Pressure CO2 88.5*H, Arterial Blood Partial Pressure O2 151.5H, Arterial Blood Total CO2 29.4H, Arterial Blood HCO3 26.7H, Arterial Blood Base Excess - 5.5L, Arterial Blood Oxygen Saturation 98.8 05/06/20 01:10: Immature Granulocyte % (Auto) 0.8, Neutrophils (%) (Auto) 91.0H, Lymphocytes (%) (Auto) 1.7L, Monocytes (%) (Auto) 6.3H, Eosinophils (%) (Auto) 0.0, Basophils (%) (Auto) 0.2, Neutrophils # (Auto) 11.9H, Lymphocytes # (Auto) 0.2L, Monocytes # (Auto) 0.8, Eosinophils # (Auto) 0.0, Basophils # (Auto) 0.0, Nucleated Red Blood Cells % (auto) 0.0, Prothrombin Time 16.3H, Prothromb Time International Ratio 1.28, Activated Partial Thromboplast Time 40.0H, Anion Gap 3L, Glomerular Filtration Rate 41.9L, Uric Acid 10.6H, Calcium Level 8.3L, Phosphorus Level 7.5#H, Total Bilirubin 0.2, Aspartate Amino Transf (AST/SGOT) 18, Alanine Aminotransferase (ALT/SGPT) 14, Alkaline Phosphatase 56, Total Protein 4.8#L, Albumin 1.6#L, Albumin/Globulin Ratio 0.5, Fibrinogen 641H, D-Dimer, Quantitative 3720.44H, Lactic Acid Level 2.4*H, Troponin I < 0.02, [id number]-Type Natriuretic Peptide 439H 05/06/20 02:00: Urine Color YELLOW, Urine Appearance HAZY, Urine pH 5.0, Urine Specific [place] 1.019, Urine Protein NEGATIVE, Urine Glucose (UA) NEGATIVE, Urine Ketones NEGATIVE, Urine Blood NEGATIVE, Urine Nitrite NEGATIVE, Urine Bilirubin NEGATIVE, Urine Urobilinogen 0.2, Urine Leukocyte Esterase NEGATIVE, Urine WBC ( Auto) 3, Urine RBC (Auto) 1, Urine Hyaline Casts (Auto) 18, Urine Bacteria (Auto) NEGATIVE, Urine Squamous Epithelial Cells 0, Urine Mucus (Auto) SMALL, Urine Sperm (Auto) 05/06/20 02:59: Blood Gas Bicarbonate Standard 26.1H, Arterial Blood pH 7.473H, Arterial Blood Partial Pressure CO2 35.0, Arterial Blood Partial Pressure O2 89.0, Arterial Blood Total CO2 26.1, Arterial Blood HCO3 25.1, Arterial Blood Base Excess 1.9, Arterial Blood Oxygen Saturation 97.6 05/06/20 06:09: Blood Gas Bicarbonate Standard 25.8, Arterial Blood pH 7.466H, Arterial Blood Partial Pressure CO2 35.2, Arterial Blood Partial Pressure O2 78.2, Arterial Blood Total CO2 25.9, Arterial Blood HCO3 24.8, Arterial Blood Base Excess 1.5, Arterial Blood Oxygen Saturation 96.4 05/06/20 06:27: Bedside Glucose (Misc Panel) 206H 05/06/20 06:31: Immature Granulocyte % (Auto) 0.7, Neutrophils (%) (Auto) 88.9H, Lymphocytes (%) (Auto) 2.1L, Monocytes (%) (Auto) 8.2H, Eosinophils (%) (Auto) 0.0, Basophils (%) (Auto) 0.1, Neutrophils # (Auto) 12.0H, Lymphocytes # (Auto) 0.3L, Monocytes # (Auto) 1.1H, Eosinophils # (Auto) 0.0, Basophils # (Auto) 0.0, Nucleated Red Blood Cells % (auto) 0.0, Anion Gap 6L, Glomerular Filtration Rate 52.2L, Lactic Acid Followup at 4 Hours 2.2*H, Uric Acid 10.8H, Calcium Level 8.6, Phosphorus Level 3.4#, Magnesium Level 2.5H, Lactate Dehydrogenase 150, Total Creatine Kinase 70, Creatine Kinase MB 1.6, Creatine Kinase MB Relative Index 2.29, Troponin I < 0.02, Procalcitonin 0.85 05/06/20 12:37: Bedside Glucose (Misc Panel) 184H CBC/BMP Laboratory Tests 05/05/20 16:01 05/06/20 01:10 05/06/20 06:31 Microbiology Microbiology 05/06/20 Blood Culture, Received Pending 05/06/20 Blood Culture, Received Pending 05/06/20 Gram Stain - Final, Resulted 05/06/20 Sputum Culture, Resulted Pending Current Medications Current Medications Medications (Trade) Dose Ordered Sig/Rei Route PRN Reason Start Time Stop Time Status Last Admin Dose Admin Acetaminophen (Tylenol Tab) 650 mg Q6HP PRN PO PAIN / FEVER 05/05/20 21:15 Albuterol/ Ipratropium (Duoneb (Ipr 0.5mg/Alb 2.5mg)) 3 ml Q6HP PRN NEB SOB/WHEEZING 05/05/20 21:00 Albuterol/ Ipratropium (Duoneb (Ipr 0.5mg/Alb 2.5mg)) 3 ml RQ4H NEB 05/06/20 04:00 05/06/20 15:16 Allopurinol (Zyloprim) 200 mg Q8H NG 05/06/20 14:00 05/06/20 15:09 Cefepime HCl 2 gm/ Dextrose 50 ml @ 100 mls/hr Q12H IV 05/06/20 08:00 05/06/20 07:50 Chlorhexidine Gluconate (Peridex Oral Rinse) SWAB/BRUSH ORAL CAVITY BID MT 05/06/20 09:00 05/06/20 10:00 Cisatracurium Besylate 200 mg/ Sodium Chloride 500 ml @ 96 mls/hr Q5H13M IV 05/06/20 01:34 05/06/20 15:04 Dextrose (Dextrose 50%) 25 ml ASDIRECTED PRN IV SEE LABEL COMMENTS 05/06/20 03:15 Dextrose (Dextrose 50%) 50 ml STAT STAT IV 05/05/20 23:58 05/06/20 00:02 DC 05/05/20 23:58 Fentanyl Citrate (Sublimaze) 25 mcg Q1HP PRN IV PAIN 05/06/20 01:15 05/06/20 09:15 DC 05/06/20 01:13 Fentanyl Citrate 1000 mcg/Sodium Chloride 100 ml @ 2.5 mls/hr Q24H IV 05/06/20 10:00 05/06/20 10:46 Glucagon (Glucagon) 1 mg ASDIRECTED PRN SC SEE LABEL COMMENTS 05/06/20 03:15 Glucose (Glucose) 16 GM ASDIRECTED PRN PO SEE LABEL COMMENTS 05/06/20 03:15 Heparin Sodium (Porcine) (Heparin) 5,000 units Q8H SQ 05/06/20 06:00 05/06/20 15:10 Home Med (Med Rec Complete!) ASDIRECTED XX 05/05/20 19:45 05/05/20 19:46 DC Insulin Human Lispro (HumaLOG INSULIN) See Protocol Table Q6H SC 05/06/20 06:00 05/06/20 12:53 Insulin Human Regular (HumuLIN R INSULIN) 10 units STAT STAT IV 05/05/20 23:58 05/06/20 00:02 DC 05/05/20 23:58 Methylprednisolone (SOLUmedrol) 60 mg Q12H IV 05/06/20 03:00 05/06/20 15:10 Midazolam HCl (Versed) 2 mg Q1HP PRN IV AGITATION 05/06/20 01:15 Midazolam HCl (Versed) 2 mg STAT STAT IV 05/06/20 01:05 05/06/20 01:07 DC 05/06/20 01:13 Midazolam HCl (Versed) 2 mg STAT STAT IV 05/06/20 01:08 05/06/20 01:09 DC 05/06/20 01:14 Midazolam HCl 100 mg/Dextrose 100 ml @ 2 mls/hr Q24H IV 05/06/20 01:34 05/06/20 02:32 Non-Formulary Medication (Refrigerator Chase) Q1M PRN XX SEE LABEL COMMENTS 05/06/20 01:45 Norepinephrine Bitartrate 16 mg/ Dextrose 500 ml @ 15 mls/hr Q24H IV 05/06/20 01:15 05/06/20 02:29 Pantoprazole Sodium (Protonix) 40 mg DAILY IV 05/06/20 09:00 05/06/20 10:00 Sodium Bicarbonate (Sodium Bicarbonate) 50 meq STAT STAT IV 05/06/20 01:04 05/06/20 01:06 DC 05/06/20 01:12 Sodium Bicarbonate (Sodium Bicarbonate) 50 meq STAT STAT IV 05/06/20 01:05 05/06/20 01:07 DC 05/06/20 01:13 Vancomycin HCl 1000 mg/IV Miscellaneous Supplies 1 each/ Dextrose 270 ml @ 270 mls/hr Q12H IV 05/06/20 06:00 05/06/20 06:32 Vancomycin HCl 1200 mg/IV Miscellaneous Supplies 24 ml @ 24 mls/hr Q12H IV 05/05/20 23:15 05/06/20 02:50 DC Vasopressin 20 units/Sodium Chloride 500 ml @ 30 mls/hr [id number] IV 05/06/20 01:00 Hold 05/06/20 01:00 Allergies Coded Allergies: No Known Drug Allergies (Verified Allergy, Unknown, 04/24/20) Daphne Kline MD May 06, 2020 15:41
[2020-05-06] MEDS ORDERED: fentaNYL CITRATE 1,000 MCG in NS 80 ML IV SCH (21:30)
[2020-05-07] VITALS (44 sets, daily range): BP systolic 86–121; BP diastolic 51–70; O2SAT 88–91
[2020-05-07] MEDS: CISATRACURIUM 200 MG in NS 480 ML IV SCH ×2 (03:23→08:01)
[2020-05-07] MEDS: methylPREDNISolone 125MG 2ML VIAL IV SCH ×2 (03:43→14:46)
[2020-05-07] MEDS: MIDAZOLAM HCL 100 MG in D5W 80 ML IV SCH (04:04)
[2020-05-07] MEDS: IPRATROPIUM 0.5MG/ALBUTEROL 2.5MG INH SOL UD 3ML (DUONEB) NEB SCH ×4 (04:19→15:25)
[2020-05-07 05:27] LABS: BASO % 0.1 % (0.0-1.0); HEMOGLOBIN 12.6 g/dl (13.5-17.5); LYMPH # 0.4 10^3/uL (1.5-5.0); LYMPH % 2.3 % (24.0-44.0); MEAN CORPUSCULAR HEMOGLOBIN 28.5 pg (27.0-33.0); MEAN CORPUSCULAR HGB CONC 31.5 g/dl (32.0-36.5); MEAN CORPUSCULAR VOLUME 90.5 fl (80.0-96.0); MONO # 2.6 10^3/uL (0.0-0.8); MONO % 14.9 % (0.0-5.0); NEUTROPHILS % 82.1 % (36.0-66.0); PLATELET COUNT, AUTOMATED 511 10^3/uL (150-450); RED BLOOD COUNT 4.42 10^6/uL (4.30-6.10); WHITE BLOOD COUNT 17.1 10^3/uL (4.0-10.0)
[2020-05-07 05:47] LABS: CALCIUM LEVEL 8.2 MG/DL (8.5-10.1); CREATININE FOR GFR 2.22 MG/DL (0.70-1.30); GLOMERULAR FILTRATION RATE 32.4 (>56); POTASSIUM SERUM 4.7 MEQ/L (3.5-5.1); URIC ACID 11.2 MG/DL (3.5-7.2)
[2020-05-07] MEDS: allopurinoL 100 MG TAB NG SCH ×2 (05:48→14:46)
[2020-05-07] MEDS: HumaLOG INSULIN (NovoLOG) PER UNIT SC SCH ×2 (05:49→12:11)
[2020-05-07] MEDS: HEPARIN SOD (PORCINE) 5000UNITS/ML 1ML VIAL/SYRINGE SQ SCH ×2 (05:49→14:46)
[2020-05-07] MEDS: VANCOMYCIN HCL 1,000 MG, VIAL MATE ADAPTER 1 EACH in D5W 250 ML IV SCH (05:50)
[2020-05-07 06:18] LABS: ABG BASE EXCESS 1.2 (-2.0-2.0); ABG HCO3 26.7 MEQ/L (22.0-26.0); ABG PARTIAL PRESSURE CO2 45.9 mmHg (35.0-45.0); ABG PARTIAL PRESSURE O2 64.5 mmHg (75.0-100.0); ABG STANDARD HCO3 25.4 MEQ/L (22.0-26.0); ABG TOTAL CO2 28.1 MEQ/L (22.0-29.0); ABG pH (ARTERIAL) 7.383 UNITS (7.350-7.450)
--- NOTE | 2020-05-07 06:58 | CR ---
DATE OF CONSULTATION: 05/06/2020 REQUESTING PHYSICIAN: Dr. Jorge Luis Chowdary CONSULTING PHYSICIAN: Dr. Ivis Segovia REASON FOR CONSULTATION: Management of tumor lysis syndrome and electrolyte abnormalities. CHIEF COMPLAINT: Patient presented to the emergency room yesterday with progressive shortness of breath. HISTORY OF PRESENT ILLNESS: Mr. 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 He was recently discharged from the hospital on April 30 but came back with progressively worsening shortness of breath. He was seen in the emergency room (ER) and was found to have pneumonia and septic shock. He needed to be emergently intubated overnight. Labs showed that patient had elevated uric acid level, high phosphorus level, low calcium, and hyperkalemia. Nephrology service was consulted last night for possible tumor lysis syndrome. Since patient had pneumonia and acute hypercapnic respiratory failure, the decision was made not to give the patient intravenous (IV) fluids because of fluid overload. He was given a dose of Kayexalate. I saw and evaluated the patient at the bedside today morning in the intensive care unit (ICU). He is intubated and seated. History was obtained from patient's chart and from the medical team. Patient is making a small amount of urine now, around 30-40 mL an hour. MEDICAL HISTORY: 1. Hypertension. 2. Hyperlipidemia. 3. Chronic obstructive pulmonary disease (COPD). 4. Diabetes mellitus, type 2. 5. Bilateral malignant pleural effusions. 6. Adenocarcinoma with unknown primary with metastases to liver, lung, and lymph nodes. SURGICAL HISTORY: 1. History of left hand carpal tunnel surgery. 2. History of liver biopsy. 3. Colonoscopy in 2019. ALLERGIES: No known drug allergies. FAMILY HISTORY: No significant family history of end-stage renal disease or hemodialysis. SOCIAL HISTORY: He lives with his friend. 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 Former smoker. No history of drug abuse. REVIEW OF SYSTEMS: I was unable to do any review of systems at this time. He is intubated and sedated, but patient was profusely sweating when I saw him. PHYSICAL EXAMINATION: GENERAL: Patient is intubated and sedated right now. VITAL SIGNS: Temperature is 96.8 degrees Fahrenheit, blood pressure 117/68, pulse 99, respiratory rate of 25, saturating 94% on the ventilator with 90% FiO2. HEAD AND NECK: Pupils are equally round and reactive to light. He has an endotracheal tube and orogastric tube. Neck is supple. Moderately elevated jugular venous distention (JVD). CARDIOVASCULAR: S1, S2, tachycardia. Edema 1+ of the bilateral lower extremities. RESPIRATORY: Decreased breath sounds and coarse crepitations bilaterally in the lungs. ABDOMEN: Soft. Positive bowel sounds. Enlarged nodular liver was noted. GENITOURINARY: He has an indwelling Dale catheter. MUSCULOSKELETAL: No clubbing or cyanosis. Edema of the lower extremities, as mentioned above. CENTRAL NERVOUS SYSTEM: Patient is intubated and sedated. He moves extremities on painful stimuli. LYMPH NODES: No cervical or axillary lymphadenopathy was noted. LABORATORY REVIEW: CBC showed a WBC of 13.5, hemoglobin 12.8, platelets 503. White cell count on admission was 14.9. His INR is 1.2. PTT is 40. Fibrinogen is 641. D-dimer is 3720. Urinalysis done today morning showed no leukocyte esterase, no blood, no protein. ABG done on arrival showed a pH of 7.09, pCO2 of 88, pO2 of 151, bicarbonate 26.7, oxygen saturation 98.8%. BMP on arrival showed sodium 131, potassium 5.8, chloride 96, bicarbonate 30, BUN 59, creatinine 1.4. Uric acid 10.2, phosphorus 5.8, magnesium 2.7, calcium 9. Lactic acid was 2.4 on arrival. Microbiology: Blood cultures are pending. IMAGING: A CT scan of the chest was done last night, which showed increasing bilateral pulmonary opacities, most likely due to pneumonia and nodularity throughout both upper lobes, which might be due to metastasis. Large associated pleural effusions. Multiple low-density hepatic lesions, most likely due to metastatic disease. There is also mediastinal and hilar lymphadenopathy. CURRENT INPATIENT MEDICATIONS: Patient was given a dose of calcium gluconate last night. He is on cefepime 2 grams IV every 12 hours. He is on Levophed at 8 mcg when I saw him. He is on fentanyl drip. Vasopressin has been weaned off. He is on IV vancomycin. He was given Zithromax 500 mg IV times one dose. I have started the patient on allopurinol 200 mg via the nasogastric (NG) tube every 8 hours. One dose of Lasix was ordered, but it was not given because of low blood pressures. He is on Solu-Medrol 60 mg IV every 12 hours. He is on Versed drip, and he was given two doses of sodium bicarbonate 50 mEq last night. ASSESSMENT AND PLAN: 1. Tumor lysis syndrome. It is secondary to large tumor burden. Patient is currently not on any chemotherapy. Patient has been started on allopurinol 200 mg by mouth every 8 hours. Phosphorus levels are already getting better. Repeat phosphorus level is 3.4. Calcium is within the acceptable range now. It is 8.6. Avoid giving calcium to this patient, which will cause precipitations calcium phosphate salts. Hyperkalemia has resolved with the dose of Kayexalate overnight. He is not a candidate for IV fluid hydration because of hypoxic and hypercapnic respiratory failure, bilateral pleural effusions. Continue to monitor for now. 2. Acute renal failure. It is most likely secondary to a combination of septic shock and tumor lysis syndrome. Patient is nonoliguric. His creatinine is better today. It came down from 1.7 to 1.4. Management of tumor lysis syndrome is as mentioned above. Patient clinically is not a candidate for hemodialysis, and I would not offer any hemodialysis to this patient given his metastatic cancer, which is not curable at this time. 3. Septic shock. It is secondary to bilateral pneumonia. Patient is already on Levophed. He is empirically being covered with broad-spectrum IV antibiotics. The rest of the management is as per pulmonary team. 4. Metastatic adenocarcinoma with unknown primary. Patient is not a candidate for any chemotherapy at this time, and his code status is DO NOT RESUSCITATE with trial of intubation. 5. Acute hypoxic and hypercapnic respiratory failure. It is multifactorial secondary to bilateral pneumonia and metastatic cancer with some element of fluid overload. He is already intubated, being covered with broad-spectrum antibiotics. Lasix as needed can be given by the pulmonary team, if he can tolerate that. DISPOSITION: Patient overall has a very poor prognosis. He has metastatic cancer throughout his body, which is not curable. He is in tumor lysis syndrome with septic shock. In my opinion, patient should be made comfort measures only. Total critical care time spent in the management of this patient today morning in the ICU, excluding all the procedures, is 1 hour. JAMARID
[2020-05-07] MEDS: CEFEPIME HCL 2 GM in D5W MINI-BAG PLUS 50 ML IV SCH (08:00)
[2020-05-07] MEDS: fentaNYL CITRATE 1,000 MCG in NS 80 ML IV SCH (08:01)
[2020-05-07] MEDS: CHLORHEXIDINE GLUCONATE 0.12 % 15ML UDC (PERIDEX ORAL RINSE) MT SCH (08:02)
[2020-05-07] MEDS: PANTOPRAZOLE 40MG VIAL (C9113 PER 1) IV SCH (08:02)
[2020-05-07] MEDS ORDERED: FUROSEMIDE 40MG/4ML VIAL (J1940) IV ONE (10:15)
[2020-05-07 11:44] LABS: VANCOMYCIN RANDOM 13.3 UG/ML
[2020-05-07] MEDS ORDERED: SODIUM CHLORIDE 0.9% INJ 10 ML SYR IV PRN (13:15)
[2020-05-07] MEDS ORDERED: MIDAZOLAM INJ 2MG/2ML VIAL (J2250 PER 1MG) IV PRN (13:30)
[2020-05-07] MEDS ORDERED: SODIUM CHLORIDE 0.9% INJ 10 ML SYR IV SCH (14:00)
--- NOTE | 2020-05-07 14:13 | IPNPDOC ---
Date Seen The patient was seen on 05/07/20. Progress Note SUBJECTIVE: 90% FiO2 on ventilator, HR slightly improved in 120's with increased fentanyl gtt. Remains on pressor support, Cr worsened. Poor U/O overnight but improved this AM. WBC increased to 17K, afebrile. Family is to come in today at 5 PM to further discuss plans of care. OBJECTIVE: PHYSICAL EXAMINATION: VITAL SIGNS: Please see below GENERAL APPEARANCE: Resting in bed, appears more comfortable today than 05/06/20 . No response to painful or loud stimuli HEENT: Intubated, Atraumatic, normocephalic. eyes are nonicteric. Trachea is midline. Mucous membranes are pink and moist. CARDIOVASCULAR: Normal S1, S2. Tachycardic, sinus. No clicks, rubs, or murmurs LUNGS: Decreased breath sounds throughout more so in the bases bilaterally. No rhonchi, rales. ABDOMEN: Distended, tympanic. Normoactive bowel sounds throughout : faye catheter in place EXTREMITIES: Right groin- right fem line, 2+ pitting edema in bilateral lower extremities. Full and equal pulses in bilateral upper and lower extremities NEUROLOGICAL: Unable to assess CN, sedated with versed. pupils dilated LABORATORY: Please see below MICROBIOLOGY: BCx: NG at 24 hours Sputum Cx pending IMAGING: CXR 05/06/20: 1.Endotracheal tube appropriately position. NG tube extending at least as far as the stomach. 2. Basilar predominant airspace disease, worse than on the prior chest x-ray. 3. Bilateral pleural effusions, right larger than left, grossly unchanged. ASSESSMENT: Patient is a 59 year old male with widely metastatic cancer of unknown primary who presented to [facility] with increased shortness of breath. Patient was found to have tumor lysis syndrome, worsening bilateral pleural effusions and bilateral opacities compatible with pneumonia, sepsis. PLAN: 1. Acute Hypoxic/Hypercapnic respiratory failure multifactorial 2/2 to pneumonia, bilateral pleural effusions (cannot r/o malignant), sepsis and metastatic cancer -FiO2 requirement to 90% this afternoon, intubated with not much improvement since admission. -WBC incr to 17K, afebrile -D/dorothy nimbex, vasopressin over past 24 hours. -Remains on levophed -Cefepime and Vancomycin for coverage of healthcare associated pneumonia given patients recent hospitalization. Methylprednisolone. -Will diurese if able, grossly fluid overloaded. -Overall poor prognosis -Versed, fentanyl for sedation -Pulmonary/CC consulted/following 2. Sepsis w/ Septic Shock -BP with MAP >65 on levophed -Patient remains tachycardic with elevated WBC. LA slightly improved -C/w treatment above. 3. KELSY poss 2/2 to tumor lysis syndrome, sepsis -Worsened Cr at 2.2 -Not candidate for dialysis per nephrology -F/u daily labs 4.Tumor Lysis Syndrome -Patient presenting with hyperkalemia, hyperphosphatemia, and hyperuricemia. -Poss spontaneous tumor lysis from high tumor burden. Case was discussed with Nephrology. -Will continue to monitor BMP, uric acid, phosphate -Allopurinol -nephro following 5. Diabetes Type II -NPO -sliding scale 6. GI prophylaxis -Protonix 7. DVT Prophylaxis -Heparin SQ Disposition: Patients overall prognosis is very poor. To meet with patient's HCP and sister Tawnya haro when they come in. VS, I&O, 24H, Ayadbonandreas Vital Signs/I&O Vital Signs Date Time Temp Pulse Resp B/P (MAP) Pulse Ox O2 Delivery O2 Flow Rate FiO2 05/07/20 13:00 120 25 86/51 (63) 89 Ventilator 90 05/07/20 12:00 99.3 05/06/20 01:30 100.0 I&O- Last 24 Hours up to 6 AM 05/07/20 06:00 Intake Total 2705.4 ml Output Total 575 ml Balance 2130.4 ml Laboratory Data 24H LABS Laboratory Tests 2 05/06/20 17:13: Vancomycin Level Trough 17.2 05/06/20 17:30: Bedside Glucose (Misc Panel) 169H 05/06/20 23:45: Bedside Glucose (Misc Panel) 173H 05/07/20 04:51: Immature Granulocyte % (Auto) 0.6, Neutrophils (%) (Auto) 82.1H, Lymphocytes (%) (Auto) 2.3L, Monocytes (%) (Auto) 14.9H, Eosinophils (%) (Auto) 0.0, Basophils (%) (Auto) 0.1, Neutrophils # (Auto) 14.0H, Lymphocytes # (Auto) 0.4L, Monocytes # (Auto) 2.6H, Eosinophils # (Auto) 0.0, Basophils # (Auto) 0.0, Nucleated Red Blood Cells % (auto) 0.0, Blood Gas Bicarbonate Standard 25.4, Arterial Blood pH 7.383, Arterial Blood Partial Pressure CO2 45.9H, Arterial Blood Partial Pressure O2 64.5L, Arterial Blood Total CO2 28.1, Arterial Blood HCO3 26.7H, Arterial Blood Base Excess 1.2, Arterial Blood Oxygen Saturation 92.0L, Anion Gap 9, Glomerular Filtration Rate 32.4L, Uric Acid 11.2H, Calcium Level 8.2L, Random Vancomycin Level 13.3 05/07/20 05:24: Bedside Glucose (Misc Panel) 180H 05/07/20 12:06: Bedside Glucose (Misc Panel) 204H CBC/BMP Laboratory Tests 05/07/20 04:51 Microbiology Microbiology 05/06/20 Blood Culture - Preliminary, Resulted No growth after 24 hours . All specim... 05/06/20 Blood Culture - Preliminary, Resulted No growth after 24 hours . All specim... 05/06/20 Gram Stain - Final, Resulted 05/06/20 Sputum Culture, Resulted Pending Current Medications Current Medications Medications (Trade) Dose Ordered Sig/Rei Route PRN Reason Start Time Stop Time Status Last Admin Dose Admin Acetaminophen (Tylenol Tab) 650 mg Q6HP PRN PO PAIN / FEVER 05/05/20 21:15 Albuterol/ Ipratropium (Duoneb (Ipr 0.5mg/Alb 2.5mg)) 3 ml Q6HP PRN NEB SOB/WHEEZING 05/05/20 21:00 Albuterol/ Ipratropium (Duoneb (Ipr 0.5mg/Alb 2.5mg)) 3 ml RQ4H NEB 05/06/20 04:00 05/07/20 12:00 Allopurinol (Zyloprim) 200 mg Q8H NG 05/06/20 14:00 05/07/20 05:48 Cefepime HCl 2 gm/ Dextrose 50 ml @ 100 mls/hr Q12H IV 05/06/20 08:00 05/07/20 08:00 Chlorhexidine Gluconate (Peridex Oral Rinse) SWAB/BRUSH ORAL CAVITY BID MT 05/06/20 09:00 05/07/20 08:02 Cisatracurium Besylate 200 mg/ Sodium Chloride 500 ml @ 48 mls/hr [id number] IV 05/06/20 01:34 Hold 05/07/20 08:01 Dextrose (Dextrose 50%) 25 ml ASDIRECTED PRN IV SEE LABEL COMMENTS 05/06/20 03:15 Dextrose (Dextrose 50%) 50 ml STAT STAT IV 05/05/20 23:58 05/06/20 00:02 DC 05/05/20 23:58 Fentanyl Citrate (Sublimaze) 25 mcg Q1HP PRN IV PAIN 05/06/20 01:15 05/06/20 09:15 DC 05/06/20 01:13 Fentanyl Citrate 1000 mcg/Sodium Chloride 100 ml @ 5 mls/hr Q20H IV 05/06/20 10:00 05/07/20 08:01 Fentanyl Citrate 1000 mcg/Sodium Chloride 100 ml @ 5 mls/hr Q20H IV 05/06/20 21:30 05/06/20 22:19 DC Glucagon (Glucagon) 1 mg ASDIRECTED PRN SC SEE LABEL COMMENTS 05/06/20 03:15 Glucose (Glucose) 16 GM ASDIRECTED PRN PO SEE LABEL COMMENTS 05/06/20 03:15 Heparin Sodium (Porcine) (Heparin) 5,000 units Q8H SQ 05/06/20 06:00 05/07/20 05:49 Home Med (Med Rec Complete!) ASDIRECTED XX 05/05/20 19:45 05/05/20 19:46 DC Insulin Human Lispro (HumaLOG INSULIN) See Protocol Table Q6H SC 05/06/20 06:00 05/07/20 12:11 Insulin Human Regular (HumuLIN R INSULIN) 10 units STAT STAT IV 05/05/20 23:58 05/06/20 00:02 DC 05/05/20 23:58 Methylprednisolone (SOLUmedrol) 60 mg Q12H IV 05/06/20 03:00 05/07/20 03:43 Midazolam HCl (Versed) 2 mg Q15MP PRN IV AGITATION 05/07/20 13:30 05/14/20 08:00 Midazolam HCl (Versed) 2 mg Q1HP PRN IV AGITATION 05/06/20 01:15 05/07/20 13:19 DC 05/07/20 12:19 Midazolam HCl (Versed) 2 mg STAT STAT IV 05/06/20 01:05 05/06/20 01:07 DC 05/06/20 01:13 Midazolam HCl (Versed) 2 mg STAT STAT IV 05/06/20 01:08 05/06/20 01:09 DC 05/06/20 01:14 Midazolam HCl 100 mg/Dextrose 100 ml @ 2 mls/hr Q24H IV 05/06/20 01:34 05/07/20 04:04 Non-Formulary Medication (Refrigerator Chase) Q1M PRN XX SEE LABEL COMMENTS 05/06/20 01:45 Norepinephrine Bitartrate 16 mg/ Dextrose 500 ml @ 18.8 mls/hr Q24H IV 05/06/20 01:15 05/06/20 22:00 Pantoprazole Sodium (Protonix) 40 mg DAILY IV 05/06/20 09:00 05/07/20 08:02 Sodium Bicarbonate (Sodium Bicarbonate) 50 meq STAT STAT IV 05/06/20 01:04 05/06/20 01:06 DC 05/06/20 01:12 Sodium Bicarbonate (Sodium Bicarbonate) 50 meq STAT STAT IV 05/06/20 01:05 05/06/20 01:07 DC 05/06/20 01:13 Sodium Chloride (Saline Lock Flush) 10 ml ASDIRECTED PRN IV SEE LABEL COMMENTS 05/07/20 13:15 Sodium Chloride (Saline Lock Flush) 10 ml SLF IV 05/07/20 14:00 Vancomycin HCl 1000 mg/IV Miscellaneous Supplies 1 each/ Dextrose 270 ml @ 270 mls/hr Q12H IV 05/06/20 06:00 Hold 05/07/20 05:50 Vancomycin HCl 1200 mg/IV Miscellaneous Supplies 24 ml @ 24 mls/hr Q12H IV 05/05/20 23:15 05/06/20 02:50 DC Vasopressin 20 units/Sodium Chloride 500 ml @ 30 mls/hr [id number] IV 05/06/20 01:00 Hold 05/06/20 01:00 Allergies Coded Allergies: No Known Drug Allergies (Verified Allergy, Unknown, 04/24/20) Daphne Kline MD May 07, 2020 14:13
[2020-05-07] MEDS: NOREPINEPHRINE BITARTRATE 16 MG in D5W 484 ML IV SCH (14:51)
--- NOTE | 2020-05-07 14:52 | CCN ---
DATE: 05/07/2020 SUBJECTIVE: Patient was seen and examined this morning during bedside rounds. Yesterday evening patient was noted to have increased sinus tachycardia. He was started on Fentanyl drip with some improvement which was increased overnight from 25 mcg per hour to 50 mcg an hour with some improvement in his heart rate. The patient was initially weaned down on his vasopressors to just Levophed only. However, overnight and evening he did require increasing amounts of vasopressor support and was on Levophed as well as vasopressin. This morning he was able to be weaned off of the vasopressin and is only on Levophed at 14 mcg/kg/min. Patient is on Versed drip still as well and on Nimbex for paralytic. He did have some decreased urine output overnight. However, it has picked up slightly this morning with 60 mL in the past two hours. Patient has been afebrile, although he did have a borderline temperature at 99.3 this morning. PHYSICAL EXAMINATION: Vitals: T-max 99.3, T-current 98.8, pulse 113, respirations 25, blood pressure 105/64, O2 sat 90% on 85% FiO2, in 3.5 liters, out 1 liter, net positive 2.3 liters. General: Patient is intubated and sedated as well as paralyzed. He has been monitored with [id number] at 2/4. HEENT: Normocephalic/atraumatic. Pupils are reactive to light bilaterally. Patient is mildly diaphoretic. Neck is supple. Trachea is midline. There are moist mucous membranes noted. Cardiac: Tachycardic, regular rate and rhythm, normal S1 and S2. Unable to appreciate any murmurs. Pulmonary: Coarse ventilated breath sounds bilaterally with some diminished breath sounds at the bases. Abdomen: Soft, mildly distended. No tenderness to palpation. There is palpable nodular hepatomegaly. Extremities: There is +2-3 pitting edema in the bilateral lower extremities. LABORATORY DATA: WBC 17.1, hemoglobin 12.6, platelets 511. Chemistry: Sodium 133, potassium 4.7, chloride 97, bicarb 27, BUN 76, creatinine 2.22, glucose 178, lactic acid 2.2, calcium 8.2. Troponin x2 were negative. Procalcitonin was 0.85. ABG: pH 7.33, pCO2 45.9, pCO2 64.5. IMAGING: Chest x-ray this morning shows the ET tube in good position. There are bilateral opacities, more in the bases of the lung, as well as bilateral pleural effusions and pulmonary vascular congestion which is unchanged from previous. There is an OG tube in place. ASSESSMENT/PLAN: The patient is a 59-year-old male with a past medical history of hypertension, COPD, hyperlipidemia, and recently diagnosed metastatic cancer of an unknown after a liver biopsy with a history of GI bleed recently as well as admissions for pneumonia and pleural effusions. Patient presented on this admission with increased shortness of breath as well as abdominal distention and lower extremity edema. His imaging had shown worsening areas of consolidation in the lower lobes as well as bilateral pleural effusion with evidence of what appears to be lymphangitic spread of metastatic nodules in the lungs. The patient also has evidence of pitting edema and worsening hypoxic respiratory failure as well as acute hypercarbic respiratory failure. Patient was intubated and placed on mechanical ventilation, and his previous MOLST was rescinded, and he stated that he would want a trial of intubation but was a DNR. Patient was also in septic shock requiring vasopressor administration and placement of a right femoral triple lumen. Neurologic: Patient is intubated and sedated. He is also on Nimbex drip for paralytic given his severe hypoxemic respiratory failure. - Patient has been paralyzed for 24 hours. Will wean him off of the Nimbex and continue with a Versed drip for sedation and Fentanyl for analgesia. - Will titrate up the Versed as given his severe hypoxic respiratory failure patient does need to be more sedated and synchronous with the ventilator. His Fentanyl was also increased as he was thought to have a component of pain and discomfort contributing to his sinus tachycardia. With the higher dose Fentanyl, there has been some improvement. Cardiac: Patient in septic shock likely due to pneumonia requiring vasopressor administration. He also has a component of pulmonary edema with increased lower extremity edema as well and likely decompensated heart failure. - Patient was initially on Levophed and vasopressin, and he was able to be weaned off of vasopressin at some point. However, yesterday evening he was back on the vasopressin, although this morning has been weaned off again to just Levophed. Will continue to wean down his pressors to maintain a MAP above 65. - Patient did have echocardiogram ordered which was performed. The results are still pending. - His troponins x2 have been negative. - Patient is on Solu-Medrol still for COPD as well as for stress dose steroids. Pulmonary: Patient has a history of COPD and metastatic adenocarcinoma with likely metastatic lymphangitic spread in the lungs. He also has worsening consolidation and air bronchograms in the lower lobes suspicious for pneumonia. He does have leukocytosis as well. Patient also with worsening hypoxemic respiratory failure and acute hypercarbic respiratory failure in the setting of pneumonia as well as his malignancy and decompensated heart failure. He was intubated and placed on mechanical ventilation and has been requiring high amounts of ventilator support with high FiO2s and PEEPs. - Patient is currently on volume control with settings of 470/25/85 and 14. Will continue to wean down his FiO2 as tolerated. However, this will be difficult given the extent of the lung parenchymal disease. His plateau pressures are being monitored and are less than 30. His peak pressures have improved with bronchodilators and steroids. - Patient was on Nimbex given his severe hypoxemic respiratory failure. He has been on paralytic for approximately 24 hours and so will be weaned off today. Will continue him on deep sedation, however, to ensure adequate vent synchrony. - Will continue patient on Solu-Medrol 60 mg q.12 hours and continue with nebulized bronchodilators. - Continue vent bundle care with chlorhexidine mouthwash and head of bed elevation. - Continue with daily chest x-rays and ABGs while intubated. - Continue with broad spectrum antibiotics with vancomycin and cefepime. Will follow up the results of his sputum cultures. His blood cultures are no growth to date. - Patient's procalcitonin was elevated. Will continue to monitor and repeat procalcitonin as needed to cementer helper in deescalation of antibiotics. GI: Patient has a history of recent GI bleed with bright red blood per rectum. He does have some smears of bright red blood today but has not had melena. Surgery has been consulted in the past. - Will continue monitoring his H&H and transfuse as needed. - Patient has an OG tube in place with low wall intermittent suction. Once he is off of the paralytic, can consider starting him on trophic tube feeds. - Continue monitoring LFTs. He does have a history of liver metastatic disease. Renal: Patient with KELSY on admission as well as elevated uric acid, phosphorus, and hyperkalemia thought to be in spontaneous tumor lysis. Appreciate renal consult and recommendations. He was started on allopurinol. However, given his fluid overload and severe hypoxic respiratory failure, he was not given any additional IV fluids. - Patients electrolytes have improved. His urine acid is still elevated. Will attempt to give him a dose of Lasix 40 mg IV and continue monitoring his ins and outs. - Patient does have worsening renal function noted on todays labs. He is not a candidate for hemodialysis or CVVHD as per nephrology given his multiple other comorbidities and poor prognosis including his metastatic cancer. - History of diabetes. Will continue with finger stick glucose checks q.6 hours with sliding scale coverage and hypoglycemic protocol. DVT prophylaxis: Heparin. GI prophylaxis: Protonix. Code status: DNR with a trial of intubation. Patient's health care proxy, sister Kaylin, has been updated on his condition. There is a plan for her to come in today to speak to the team about possible comfort measures given his previous wishes and goals of care. Total critical care time spent not including any procedures approximately 45 minutes. INDRA
[2020-05-07 17:59] LABS: PHOSPHORUS LEVEL 5.5 MG/DL (2.5-4.9)
[2020-05-08] MEDS ORDERED: GLYCOPYRROLATE INJ 0.2 MG/ML 2 ML VIAL IV ONE (00:15)
--- NOTE | 2020-05-08 10:01 | ECHO ---
DATE OF PROCEDURE: 05/06/2020 Age: 59 Gender: Male Height: 68 inches Weight: 176 pounds Body surface area: 1.94 m2 PLAN OF CARE: Inpatient intensive care unit (ICU), Room 3208. REFERRING PHYSICIAN: Kaylee Davey MD. INDICATION: Sepsis. MEASUREMENTS: 2D Measurements: RV 2.4 cm LV 3.6 cm Septum 0.9 cm Posterior wall 0.9 cm Aortic Root 3.2 cm LA 2.8 cm LVEF 75% Doppler Measurements: AV 1.23 m/s LVOT 1.16 m/s LVOT diameter 1.6 cm MV-E 79, A 77, E/A ratio 1 Early mitral deceleration time 150 m/s E prime medial 5.6, A prime medial 6.6, E prime lateral 5.2 Average E/E prime ratio 14.6/PCWP - 20 mmHg PV 0.75 m/s Pulmonary artery acceleration time 121 m/s PASP 28 mmHg IVC 1.4 cm COMMENTS: Sinus tachycardia without intraventricular conduction disturbance. Somewhat challenging study in light of the patients body habitus, but diagnostically useful information was still obtained. M-mode and two-dimensional echocardiography was performed with pulse, continuous wave, color flow, and tissue Doppler studies. Normal left ventricle size, wall thickness, and hyperkinetic wall motion. Normal left atrial size and Doppler assessment of LV diastolic function with current estimated mean left atrial pressure upper limits of normal to markedly elevated. Normal right heart chamber sizes and motion with currently normal estimated pulmonary arterial pressure. Normal inferior vena cava (IVC) size against an elevated central venous pressure. Normal aortic root diameters. Three equal size aortic cusps with slight asymmetrical thickening of the noncoronary cusps without functional valvular abnormality. Normal appearing mitral valve and mitral valve function. Normal appearing tricuspid valve and function. No separate intracardiac mass or pericardial effusion. If a cardiac source of embolic or septic state is seriously suspect, a transesophageal echocardiogram would be advised. [facility]
--- NOTE | 2020-05-08 15:05 | IPN ---
DATE: 05/07/2020 SUBJECTIVE: Patient was seen and examined at the bedside today morning in the intensive care unit (ICU). He remains intubated, he is sedated, he was also on Nimbex because it was difficult to vent the patient. He continues to be on Levophed of 40 mcg. He remains on a high FiO2 requirement of 82% on the vent to oxygenate him. His renal function is deteriorating now. Creatinine has bumped up now. Uric acid level remains high despite use of allopurinol. Patient is clinically not making any progress. OBJECTIVE: Vital signs: Temperature is 99.3 degrees Fahrenheit, blood pressure 100/60, pulse is 114, respiratory rate of 25, saturating 86% on the vent with FiO2 of 90%. Intake and output: Urine output recorded is 705 mL yesterday, 400 mL so far today since overnight. Weight in the bed scale is 83.4 kg. PHYSICAL EXAMINATION: General: Patient is intubated, sedated, paralyzed. Head and neck exam: Pupils are equally round and reactive to light. Mucous membranes are moist. He has orogastric tube (OGT) and endotracheal tube. Neck is supple, mildly elevated jugular venous distension (JVD). Cardiovascular: S1, S2, tachycardia. 2+ edema of the bilateral lower extremities. Respiratory: Mildly decreased breath sounds at the bases. No active rales or rhonchi. Abdomen: Soft, positive bowel sounds. Nodular large liver is palpable. Genitourinary: He has an indwelling [place] catheter. Musculoskeletal: No clubbing or cyanosis. Skin: Patient has cold, clammy skin. 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 LABORATORY REVIEW: CBC showed WBC 17.1, hemoglobin 12.2, platelets are 511. BMP showed sodium 133, potassium 4.7, chloride 97, bicarbonate 27, BUN 76, creatinine 2.2, glucose 178, lactic acid is 2.2, uric acid 11.2, calcium is 8.2, phosphorous 5.5. Random vancomycin level is 13.3 today. Microbiology: All the cultures are negative so far. CURRENT INPATIENT MEDICATIONS: Patients medications were all reviewed by myself. He is empirically on cefepime. He is on Versed, Levophed, Fentanyl drip, cisatracurium, IV vancomycin, allopurinol 200 mg every 8 hours. He is on Solu-Medrol 60 mg IV every 12 hours. ASSESSMENT AND PLAN: 1. Acute renal failure. It is secondary to tumor lysis syndrome. Patient unfortunately is not a candidate for hemodialysis because of his terminal cancer. Dialysis would not improve the outcome and it will be a futile care. 2. Tumor lysis syndrome. Rasburicase is not available in-house, however he was started on uric acid. This tumor lysis is even before initiation of any treatment. He has metastatic disease all over his body. He is not a candidate of IV aggressive fluid hydration because of vent dependent respiratory failure and high FiO2 requirement and he is not a candidate for continuous venovenous hemodiafiltration (CVVHDF) or regular hemodialysis because of his terminally incurable cancer. 3. Septic shock. Patient remains on Levophed. He is on steroids and on IV antibiotics. Cultures are negative. He has pneumonia on the images. 4. Metastatic adenocarcinoma of unknown primary. Patient is not a candidate for any chemotherapy treatment. He was advised to see palliative care as outpatient. 5. Acute hypoxic and hypercapnic respiratory failure. Patient is still requiring very high FiO2. He is intubated, sedated, and paralyzed and despite that he is requiring 90% FiO2 on the vent. One trial of Lasix 40 mg IV will be given today. DISPOSITION: Patient overall has poor prognosis. He has metastatic adenocarcinoma, septic shock, multiorgan failure, tumor lysis syndrome. Nephrology service has nothing else to offer. In my opinion patient should be comfort measures only. MTDD
--- NOTE | 2020-05-08 15:49 | DS.PDOC ---
Discharge Summary General Date of Admission May 05, 2020 at 22:47 Date of Discharge 05/08/20 Attending Physician: Daphne Kline MD Discharge Summary HISTORY OF PRESENT ILLNESS: Patient is a 59-year-old male with a recent diagnosis of cancer of unknown origin with metastatic spread to the liver and lymph nodes and lung presented to the [facility] emergency Department with complaint of shortness of breath. Patient was recently discharged from [facility] for bilateral pneumonia and bilateral pleural effusions is discharged home on 4 L of oxygen nasal cannula. Patient stated that since his discharge on 04/30/2020 he had noticed increasing shortness of breath. His shortness of breath worsened significantly today leading him to present to the [facility] emergency Department. In the ER the patient received Rocephin and Zithromax. He was noted to be tachycardic with an elevated white blood cell count. He received a chest CT which demonstrated increasing bilateral pleural opacities possibly pneumonia as well as worsening bilateral pleural effusions. Patient was hypoxic and was placed on 15 L nasal cannula. Additional laboratory studies were obtained and the patient was found to have hyperkalemia hyperuricemia hyperphosphatemia suggesting possible tumor lysis syndrome. Nephrology was consulted with recommendations to treat hyperkalemia and consultation in the AM. The patient was subsequently admitted to the ICU On presentation to the ICU the patient became apneic. An oral airway was placed by nursing staff. Anesthesia was called for emergency intubation. Patient became severely hypotensive. Peripheral Levophed was started at 10mcg. Pulmonary/Critical Care medicine was consulted for line placement and ventilator management. HOSPITAL COURSE: Patient remained on levophed and at times vasopressin for pressure support. His O2 requirements remained elevated at 85% Fio2 and later increased to 90%. Cr increased steadily likely 2/2 to tumor lysis syndrome. Per nephrology, patient was not a dialysis candidate. Per pulmonary/critical care, patient was likely to not be able to be weaned off ventilator with underlying lung status with acute issues. Overall poor prognosis per multiple physicians, including myself. The patient's HCP, his sister was notified. 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 Patient 05/08/20 early AM. DIAGNOSES AT TIME OF : Acute Hypoxic/Hypercapnic respiratory failure multifactorial 2/2 to pneumonia, bilateral pleural effusions (cannot r/o malignant), sepsis and metastatic cancer Sepsis Septic Shock KELSY poss 2/2 to tumor lysis syndrome Tumor Lysis Syndrome Diabetes Type II TIME SPENT ON DISCHARGE: Greater than 30 minutes. Vital Signs/I&Os Vital Signs Date Time Temp Pulse Resp B/P (MAP) Pulse Ox O2 Delivery O2 Flow Rate FiO2 05/07/20 16:00 86 90 05/07/20 16:00 94/57 05/07/20 15:25 Ventilator 05/07/20 15:25 117 25 05/07/20 12:00 99.3 05/06/20 01:30 100.0 I&O- Last 24 Hours up to 6 AM 05/08/20 06:00 Intake Total 556.0 ml Output Total 230 ml Balance 326.0 ml Laboratory Data Labs 24H Laboratory Tests 2 05/08/20 07:48: Lab Scanned Report Miscellaneous Lab Microbiology Microbiology 05/06/20 Blood Culture - Preliminary, Resulted No Growth after 48 hours. All Specime... 05/06/20 Blood Culture - Preliminary, Resulted No Growth after 48 hours. All Specime... 05/06/20 Gram Stain - Final, Complete 05/06/20 Sputum Culture - Final, Complete Discharge Medications Scheduled Ascorbic Acid (Vitamin C) 500 Mg Capsule, 500 CAP PO DAILY, (Reported) Cyanocobalamin (Vitamin B-12) (B-12) 1,000 Mcg Tablet, 1,000 MCG PO DAILY, (Reported) Glucosamine/Chondr Galvan A Sod (Cidaflex Tablet) 1 Each Tablet, 1 TAB PO DAILY, (Reported) Levofloxacin (Levofloxacin) 750 Mg Tablet, 750 MG PO DAILY, (Reported) Lisinopril (Lisinopril) 10 Mg Tablet, 10 MG PO DAILY, (Reported) Loratadine (Claritin) 10 Mg Capsule, 10 MG PO DAILY, (Reported) Lovastatin (Lovastatin) 40 Mg Tablet, 40 MG PO DAILY, (Reported) Metformin HCl (Metformin HCl) 1,000 Mg Tablet, 1,000 MG PO QHS, (Reported) Multivitamin (Multivitamins) 1 Each Capsule, 1 CAP PO DAILY, (Reported) Hannacroix-3 Fatty Acids/Fish Oil (Fish Oil 1,000 mg Capsule) 1 Each Capsule, 1,000 MG PO DAILY, (Reported) Salmeterol/Fluticasone (Advair 500-50 Diskus) 1 Each Blst.w.dev, 1 PUFF INH BID, (Reported) Umeclidinium [place] (Incruse Ellipta) 62.5 Mcg Blst.w.dev, 1 PUFF INH DAILY, (Reported) Scheduled PRN Albuterol Sulfate (Ventolin Hfa) 18 Gm Hfa.aer.ad, 2 PUFF INH QID PRN for SOB/WHEEZING, (Reported) Allergies Coded Allergies: No Known Drug Allergies (Verified Allergy, Unknown, 04/24/20) Daphne Kline MD May 08, 2020 15:49
--- NOTE | 2020-05-09 07:56 | ECGEPIP ---
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
== END 2020-05-08 07:59 | disposition expired | DRG 710 ==
LOC: M ED 14:35 → M ED INP 22:47 → ENRESERV 23:24 → M ICU 05-06 00:01
PROVIDERS: ADMIT Internal Medicine; ATTEND Internal Medicine
PROC: 5A1945Z Respiratory Ventilation, 24-96 Consecutive Hours (ICD-10-PCS; principal; 2020-05-05)
PROC: 06H Lower Veins, Insertion (ICD-10-PCS; 2020-05-06)
DX: A41.9 Sepsis, unspecified organism (principal); R65.21 Severe sepsis with septic shock; E88.3 Tumor lysis syndrome; J18.9 Pneumonia, unspecified organism; C78.00 Secondary malignant neoplasm of unspecified lung; J96.01 Acute respiratory failure with hypoxia; E83.39 Other disorders of phosphorus metabolism; J96.02 Acute respiratory failure with hypercapnia; C77.9 Secondary and unspecified malignant neoplasm of lymph node, unspecified; N17.9 Acute kidney failure, unspecified; C78.7 Secondary malignant neoplasm of liver and intrahepatic bile duct; E87.5 Hyperkalemia; J44.9 Chronic obstructive pulmonary disease, unspecified; C80.1 Malignant (primary) neoplasm, unspecified; E11.9 Type 2 diabetes mellitus without complications; Z79.899 Other long term (current) drug therapy; I10 Essential (primary) hypertension; E78.5 Hyperlipidemia, unspecified; Z87.891 Personal history of nicotine dependence; Z66 Do not resuscitate; Z51.5 Encounter for palliative care